=== PATIENT | female | born 1950 | race Caucasian/White ===

== ENCOUNTER 2017-12-25 08:43 | Outpatient (CLI) | payer MEDICARE | END 2017-12-25 08:44 | disposition home or self-care (01) | LOC: BICRAD 08:43 | PROVIDERS: ATTEND Internal Medicine Rheumatology | DX: M05.79 Rheumatoid arthritis with rheumatoid factor of multiple sites without organ or systems involvement (principal) ==

== ENCOUNTER 2018-02-22 18:08 | Inpatient (IN) | payer MEDICARE ==
[2018-02-22] MEDS ORDERED: Acetaminophen 500 MG TAB ONE (18:34)
[2018-02-22 18:49] LABS: Bilirubin Negative (Negative); Blood, Urine Moderate (Negative); Clarity Clear (Clear); Glucose, Urine (Dipstick) Negative (Negative); Leukocyte Negative (Negative); Nitrite Negative (Negative); Protein, Urine (Dipstick) Negative (Neg-Trace)
[2018-02-22 18:56] LABS: Bacteria/HPF Rare-Few HPF (None Seen); Squamous Epithelial 0-3 HPF (0-3); WBC/HPF 0-3 HPF (0-3)
[2018-02-22] MEDS ORDERED: Piperacillin/Tazobactam 4.5 GM VIAL ONE (19:02)
[2018-02-22] MEDS ORDERED: predniSONE 20 MG TAB ONE (19:02)
--- NOTE | 2018-02-22 19:04 | RAD ---
FRONTAL VIEW CHEST: 02/22/18 INDICATION: Cough and fever. FINDINGS: There is pleural and parenchymal density at the inferior left chest. There is elevation of the right hemidiaphragm with underlying air density likely related to bowel content. The cardiac silhouette is accentuated by portable technique. Mild vascular prominence is seen at the perihilar regions. IMPRESSION: Evidence to indicate pleural fluid with adjacent atelectasis and/or pneumonia at the inferior left ch est. Elevated right hemidiaphragm. Recommend continued followup to resolution. POS: [facility]
[2018-02-22 19:06] LABS: Band 4 % (5-11); Hemoglobin 12.3 g/dL (12.0-16.0); Lymphocytes 9 % (21-51); MDiff Complete? YES; Mean Corpuscular HGB CONC 36.4 g/dL (32.0-36.0); Mean Corpuscular Hemoglobin 33.1 pg (27.0-31.0); Mean Corpuscular Volume 91.1 fL (78.0-98.0); Mean Platelet Volume 6.6 fL (7.4-10.4); Monocytes 5 % (0-10); Neutrophil 82 % (42-75); PLT Morphology Comment Appears Adequate; Platelet Count 174 thou/uL (130-400); RBC Distribution Width 12.1 % (11.5-14.5); White Blood Cell (WBC) Count 9.5 thou/uL (4.8-10.8)
[2018-02-22 19:09] LABS: ALT (SGPT) 14 U/L (8-55); AST (SGOT) 13 U/L (5-34); Albumin 3.8 g/dL (3.4-4.8); Alkaline Phosphatase 41 U/L (40-150); Anion Gap 16 mmol/L (10-20); BUN (Urea Nitrogen) 14 mg/dL (9.8-20.1); Bilirubin, Total 1.2 mg/dL (0.2-1.2); Calc. Creatinine Clearance 0 mL/min (70-130); Calcium 9.5 mg/dL (7.8-10.44); Carbon Dioxide 25 mmol/L (23-31); Chloride 102 mmol/L (98-107); Estimated GFR-MDRD 63; Globulin 3.4 g/dL (2.4-3.5); Glucose 122 mg/dL (80-115); Potassium 3.6 mmol/L (3.5-5.1); Protein, Total 7.2 g/dL (6.0-8.3); Sodium 139 mmol/L (136-145)
[2018-02-22] MEDS ORDERED: Sodium Chloride 0.9% 1,000 ML IV SCH (22:00)
[2018-02-22 22:35] LABS: Lactic Acid 1.9 mmol/L (0.5-2.2)
[2018-02-22] MEDS ORDERED: Ondansetron PF 4 MG/2 ML Vial IVP PRN (23:12)
[2018-02-22] MEDS ORDERED: PROVENTIL INHALER 6.7 G (200 INHALATIONS) INH PRN (23:14)
[2018-02-22] MEDS ORDERED: traZODone HCl 50 MG TAB PO SCH (23:45)
[2018-02-22] MEDS ORDERED: VANCOMYCIN IVPB PRN (23:48)
[2018-02-23] MEDS: Piperacillin/Tazobactam 3.375 GM in Sodium Chloride 0.9% 100 ML IVPB SCH ×4 (00:03→17:02)
[2018-02-23] MEDS: Zolpidem Tartrate 5 MG TAB PO SCH ×3 (00:03→21:17)
[2018-02-23 00:32] VITALS: BMI 34.7
[2018-02-23 05:32] LABS: Anion Gap 15 mmol/L (10-20); BUN (Urea Nitrogen) 11 mg/dL (9.8-20.1); Calc. Creatinine Clearance 109 mL/min (70-130); Calcium 8.9 mg/dL (7.8-10.44); Carbon Dioxide 21 mmol/L (23-31); Chloride 109 mmol/L (98-107); Estimated GFR-MDRD 74; Glucose 150 mg/dL (80-115); Potassium 3.6 mmol/L (3.5-5.1); Sodium 141 mmol/L (136-145)
--- NOTE | 2018-02-23 07:28 | CT ---
CT CHEST NONCONTRAST CT THORACIC SPINE REFORMATTED IMAGING NONCONTRAST: Date: 02/22/18 INDICATION: Cough, fever, parapneumonic effusion. FINDINGS: There is mild left pleural fluid, some of which demonstrates a complex morphology. There is consolida tion of the left lung, notably within the left hilar region and insinuating along the bronchovascular bundle of the left lower lobe. There is no evidence of pneumothorax. No consolidation or significant effusion of the right hemithorax. There is mild subpleural irregularity on the right which favors at electasis. Regional lymph nodes are incompletely assessed by noncontrast imaging. Sagittal reconstructions CT thoracic spine imaging reveals multifocal height loss throughout the imag ed thoracic, as well as lumbar spine, with areas of mild to moderate severe height loss, with a sever e L1 compression, mild superior height loss of T12 with associated adjacent pedicle screws approximat ing the mildly compressed superior end plate. There is mild to moderate height loss of T9, moderate c entral and severe anterior height loss of T7, and mild superior end plate height loss of T6. When com paring to prior CT thorax imaging of 10/04/12, aside from the T6 and T7 abnormalities, the remaining areas, where comparable to prior exam, are new. There are intervening spinal x-ray series which revea l the fixation of L1 fracture. IMPRESSION: 1. Complex morphology of mild left pleural fluid, which could therefore reflect empyema versus lobul ated pleural fluid. This is limited without the presence of IV contrast. There is abnormal left hilar opacity with insinuation along bronchovascular bundle, notably at left lower lobe. An overall mild v olume loss of the left hemithorax is noted. This could relate to atypical pneumonia versus centrally located mass with postobstructive atelectasis. Continued imaging follow-up is warranted. 2. Multilevel compression deformities throughout the imaged thoracolumbar spine as above. POS: [facility]
[2018-02-23] MEDS ORDERED: predniSONE 5 MG TAB PO SCH (08:00)
[2018-02-23] MEDS ORDERED: Sodium Chloride 0.9% 10 ML ONE (08:40)
[2018-02-23] MEDS ORDERED: CARBOXYMETHYLCELLULOSE SODIUM EA EYE SCH (09:00)
[2018-02-23] MEDS ORDERED: Non-Formulary Item 1 EACH (Dexlansoprazole [Dexilant] 60 MG) PO SCH (09:00)
[2018-02-23] MEDS ORDERED: Prevnar 13-Val Conj/PF 0.5 ML SYRINGE IM ONE (09:00)
[2018-02-23] MEDS ORDERED: (Formoterol Fumarate [Perforomist] 20 MCG) EA NARE SCH (09:00)
[2018-02-23] MEDS ORDERED: [UNRECOGNIZED DRUG - OTHER] EA EYE SCH (09:00)
[2018-02-23] MEDS: Verapamil SR 120 MG TAB PO SCH (09:19)
[2018-02-23] MEDS: Calcium Carbonate + Vit D 1 TAB PO SCH ×2 (09:19→21:18)
[2018-02-23] MEDS: Folic Acid 1 MG TAB PO SCH (09:19)
[2018-02-23] MEDS: Multivitamin W/ Minerals 1 TAB PO SCH (09:19)
[2018-02-23] MEDS: Pilocarpine 5 MG TAB PO SCH ×2 (09:20→23:08)
[2018-02-23] MEDS: Enoxaparin Sodium 40 MG/0.4 ML SYRINGE SC SCH (09:21)
[2018-02-23] MEDS: Acetaminophen 325 MG TAB PO PRN ×2 (09:49→21:18)
[2018-02-23] MEDS: Vancomycin HCl 1.5 GM in Sodium Chloride 0.9% 250 ML 300 ML IVPB SCH (09:50)
[2018-02-23] MEDS: cycloSPORINE 0.05% Ophthalmic Droperette EA EYE SCH ×2 (10:06→23:08)
--- NOTE | 2018-02-23 10:20 | PDOC.PN ---
- Subjective Encounter Start Date: 02/23/18 Encounter Start Time: 10:18 Patient seen and examined. No new complaints. No overnight events. Pt is feeling better. pleuritic pain and fever better. No N/V. c/o h/o thrush with abx and wants to take probiotic. - Objective Resuscitation Status: Resuscitation Status FULL:Full Resuscitation MAR Reviewed: Yes Vital Signs & Weight: Vital Signs (12 hours) Temp Pulse Resp BP Pulse Ox 02/23/18 09:54 97.7 F 80 16 94 L 02/23/18 07:18 97.7 F 80 16 144/72 H 94 L 02/23/18 04:00 97.6 F 80 16 121/73 92 L 02/23/18 01:46 98.7 F 79 16 93 L 02/23/18 00:00 98.5 F 77 16 109/72 93 L I&O: 02/22/18 02/23/18 02/24/18 06:59 06:59 06:59 Intake Total 1580 Balance 1580 Result Diagrams: 02/22/18 18:45 02/23/18 04:44 Phys Exam - Physical Examination Constitutional: NAD HEENT: sclera anicteric Neck: supple Respiratory: no wheezing, no rales Cardiovascular: RRR Gastrointestinal: soft Musculoskeletal: no edema Neurological: non-focal, moves all 4 limbs Psychiatric: normal affect, A&O x 3 Skin: no rash Dx/Plan (1) Pneumonia Code(s): J18.9 - PNEUMONIA, UNSPECIFIED ORGANISM Status: Acute (2) Pleural effusion Code(s): J90 - PLEURAL EFFUSION, NOT ELSEWHERE CLASSIFIED Status: Acute (3) HTN (hypertension) Code(s): I10 - ESSENTIAL (PRIMARY) HYPERTENSION Status: Chronic (4) Asthma Code(s): J45.909 - UNSPECIFIED ASTHMA, UNCOMPLICATED Status: Chronic (5) Rheumatoid arthritis Code(s): M06.9 - RHEUMATOID ARTHRITIS, UNSPECIFIED Status: Chronic (6) Sjogrens syndrome Code(s): M35.00 - SICCA SYNDROME, UNSPECIFIED Status: Chronic - Plan cont current plan of care, plan discussed w/ family, continue antibiotics, PT/OT * . continue vanc and zosyn complicated pna with pl effusion h/o RA and sjogrens on immunosuppressives. will consult pulmonology for assistance. will add probiotic. AM labs.
[2018-02-23] MEDS ORDERED: Saccharomyces boulardii 250 MG CAP PO SCH (10:45)
[2018-02-23] MEDS: Cholecalciferol (Vitamin D3) 400 UNITS TAB PO SCH (11:42)
[2018-02-23] MEDS: CANDESARTAN CILEXETIL 8 MG PO SCH (14:00)
[2018-02-23] MEDS: NALTREXONE HCL PO SCH ×2 (14:00→22:04)
[2018-02-23] MEDS: BUPROPION HCL PO SCH ×2 (14:00→22:04)
--- NOTE | 2018-02-23 14:45 | HP ---
CODE STATUS: FULL CODE. PRIMARY CARE DOCTOR: Dr. Anthony Cantu. TIME OF EVALUATION: 11:05 p.m. CHIEF COMPLAINT: Fever. HISTORY OF PRESENT ILLNESS: This is 67 years old female patient with past medical history of RA, the patient is on immunosuppression therapy, came to the hospital after having temperature of 102.9, associated with cough and chest pain , the patient had generalized body aches since Sunday, with no clear triggers, no alleviating factors. Symptoms are reported as moderate to severe, gradually worsened. REVIEW OF SYSTEMS: Constitutional: No fever or chills, generalized weakness. Respiratory: Cough, scant sputum production, shortness of breath. Cardiovascular: No chest pain, palpitation, or shortness of breath. Gastrointestinal: No nausea or vomiting, diarrhea or abdominal pain. CREDIT REPRESENTATIVE: No dizziness, headache, or feeling lightheaded. Genitourinary: No burning on urination. Extremities: No leg swelling. All other systems were reviewed and negative except for the findings mentioned above. PAST MEDICAL HISTORY: RA, macular degeneration, asthma, osteopenia, PNA, hypertension. PAST SURGICAL HISTORY: Laminectomy x2 with spinal fusion T13-L3, cholecystectomy, hysterectomy, carpal tunnel surgery. FAMILY HISTORY: Father has heart problems. Mother has COPD. ALLERGIES: GABAPENTIN, LEVOFLOXACIN, PREGABALIN. REPORTED MEDICATIONS: Calcium, Centrum, folic acid, methotrexate, prednisone, trazodone, pilocarpine, Remicade, Dexilant, Restasis, ProAmatine, Estrace, cholecalciferol, vitamin D3, Alvesco, Singulair, Flonase, Furamist, Imuran, Lunesta, Myrbetriq, Contrave. PHYSICAL EXAMINATION: VITAL SIGNS: On presentation, blood pressure 170/77, with heart rate 116, respiratory rate was 18, temperature 100.6, oxygen saturation 91 on room air. GENERAL APPEARANCE: Patient is alert, oriented, no acute distress. HEENT: Eyes, normal conjunctivae. Moist oral mucosa. Anicteric. NECK: No JVD. RESPIRATORY: Bilateral air entry. No rales or wheezing. Patient has decreased respiratory sounds in the left lower base. CARDIOVASCULAR: Normal rate and regular rhythm. No murmurs, no gallop. No edema. ABDOMEN: Soft, normal bowel sounds. MUSCULOSKELETAL: Baseline range of motion and strength. No tenderness. SKIN: Warm and intact. No pallor, no rash, no redness. NEUROLOGIC: Baseline sensory. No evidence of any new focal weakness. Baseline speech. Cranial nerve seems to be intact. PSYCHIATRIC: Good mood. No anxiety, oriented, no optimal judgment. LABORATORY DATA AND IMAGING STUDIES: The EKG was reviewed, the patient had sinus tachycardia at the rate of 116, RBBB. Chest x-ray, the patient has evidence to indicate pleural fluid with adjacent atelectasis or pneumonia on the inferior left chest, elevated right hemidiaphragm. Recommend follow up for resolution. The labs were reviewed. The patient has white count 9.5, hemoglobin 12.3, MCV 91, platelet count 174. Sodium 139, potassium 3.6, chloride 102, carbon dioxide 25, anion gap 16, BUN 14, creatinine 0.8. GFR 63, glucose 122. Lactic acid 2.2, the second one 1.9. LFTs were normal. UA was done and was normal. The CAT scan has not reported yet, has been reviewed by myself. The patient has the left-sided pneumonia and pleural effusion, parapneumonic effusion; however, official report from radiology is not back yet. ASSESSMENT AND PLAN: The patient was placed in the hospital and following medical problem: 1. Left lower lobe pneumonia and the patient is immunosuppressed due to rheumatoid arthritis medications, we will place the patient on broad spectrum antibiotics, send cultures, will adjust treatment as per sensitivity. 2. Possible open lesion, left-sided pleural effusion, will await for official report from CT, may need thoracic surgery or Pulmonary to assist with this case , in case therapeutic/diagnostic tap versus recommendations needed. Patient covered with broad spectrum antibiotics. 3. History of rheumatoid arthritis. The patient is immunosuppressed and has been held for now due to severe infection. This will need to be reconciled once the patient out of risk from infection. 4. Uncontrolled hypertension, reconcile home medications, will not treat aggressively due to risk of sepsis. 5. Deep venous thrombosis prophylaxis. 6. History of asthma, the patient seems to be stable, we will monitor, we will treat accordingly. JAIDEND
[2018-02-23] MEDS: Montelukast Sodium 10 mg Tablet PO SCH (21:17)
[2018-02-23] MEDS: traZODone HCl 50 MG TAB PO SCH (21:17)
[2018-02-23] MEDS ORDERED: Albuterol Sulfate 2.5 mg/3 ml Neb NEB PRN (21:50)
[2018-02-23] MEDS ORDERED: Diabetic Tussin 200 MG/10 ML UDCUP PO PRN (21:51)
--- NOTE | 2018-02-23 21:56 | CON ---
DATE OF CONSULTATION: 02/23/2018 HISTORY OF PRESENT ILLNESS: Charisse Grijalva is a 67-year-old female, who started having a generalized sense of not being well over the weekend, then Sunday she started developing temperature spikes. , she developed severe left-sided chest discomfort, aggravated by coughing or taking a deep breath. She subsequently presented to the hospital and was admitted. She has rheumatoid arthritis. PAST MEDICAL HISTORY: Remarkable for rheumatoid arthritis, macular degeneration , asthma, osteopenia, hypertension, laminectomy, spinal fusion, cholecystectomy , hysterectomy, carpal tunnel surgery. SOCIAL HISTORY: She is a nonsmoker, nondrinker. No drug use. FAMILY HISTORY: Positive for vascular disease and COPD. MEDICATIONS: Prior to admission, she was on methotrexate 5 mg, prednisone, trazodone, pilocarpine, Remicade, Dexilant, Restasis, Estrace, vitamin D, Alvesco, Singulair, Flonase, Veramyst, Imuran, Lunesta, Myrbetriq, and Contrave. REVIEW OF SYSTEMS: Ten point system review completed, otherwise negative. States she feels much better than when she was admitted. PHYSICAL EXAMINATION GENERAL: 67-year-old female with rheumatoid arthritis VITAL SIGNS: She has been afebrile since admission, blood pressure 150/78, respiratory rate is 16, heart rate is 79, oximetry is 95 on room air. HEENT: Pupils are equal. Sclerae is anicteric. NECK: Supple, no lymphadenopathy. LUNGS: Remarkable for decreased breath sounds at her left base. HEART: Regular rhythm, no S3. ABDOMEN: Soft and nontender. EXTREMITIES: No clubbing, cyanosis, or edema. She did not really have significant rheumatoid deformities. IMAGING: Chest radiograph and chest CT have been reviewed. They show bilateral effusions. Chest CT suggests that some of this fluid might be loculated. IMPRESSION AND PLAN: Pleurisy with pleural effusion. This could be infectious, could be sterile parapneumonic or could be related to rheumatoid arthritis. I do not see anything on her CT suggestive of pericardial effusion or pericarditis. I do not see any alveolar infiltrates suggestive of a clearcut pneumonia. Recommend bilateral decubitus views tomorrow to see if she has any significant free flowing fluid. The effusion is relatively small, so I am not sure if she would need any type of intervention such as a decortication, especially given her dramatic clinical improvement. I would continue antibiotics for now. This is a 50-minute consult greater than 50% of the time was spent on the unit coordinating care. CALVIN
[2018-02-24] MEDS: Piperacillin/Tazobactam 3.375 GM in Sodium Chloride 0.9% 100 ML IVPB SCH ×5 (00:13→22:46)
[2018-02-24 05:24] LABS: #Eosinphils 0.1 thou/uL (0.0-0.7); #Lymphocytes 1.8 thou/uL (1.20-3.40); #Monocytes 0.6 thou/uL (0.11-0.59); #Neutrophils 5.4 thou/uL (1.40-6.50); %Basophils 0.3 % (0.0-1.0); %Eosinophils 1.4 % (0.0-10.0); %Lymphocytes 22.9 % (21.0-51.0); %Monocytes 7.7 % (0.0-10.0); %Neutrophils 67.6 % (42.0-75.0); Hemoglobin 10.4 g/dL (12.0-16.0); Mean Corpuscular Hemoglobin 34.3 pg (27.0-31.0); Mean Platelet Volume 7.4 fL (7.4-10.4); Platelet Count 175 thou/uL (130-400); RBC Distribution Width 13.7 % (11.5-14.5); Red Blood Cell (RBC) Count 3.05 mill/uL (4.20-5.40)
[2018-02-24 05:43] LABS: Anion Gap 11 mmol/L (10-20); BUN (Urea Nitrogen) 13 mg/dL (9.8-20.1); Calc. Creatinine Clearance 98 mL/min (70-130); Calcium 8.4 mg/dL (7.8-10.44); Carbon Dioxide 25 mmol/L (23-31); Chloride 111 mmol/L (98-107); Estimated GFR-MDRD 65; Glucose 89 mg/dL (80-115); Potassium 3.6 mmol/L (3.5-5.1); Sodium 143 mmol/L (136-145)
[2018-02-24] MEDS: Enoxaparin Sodium 40 MG/0.4 ML SYRINGE SC SCH (08:47)
[2018-02-24] MEDS: Verapamil SR 120 MG TAB PO SCH (08:48)
[2018-02-24] MEDS: Calcium Carbonate + Vit D 1 TAB PO SCH ×2 (08:48→20:34)
[2018-02-24] MEDS: Saccharomyces boulardii 250 MG CAP PO SCH (08:48)
[2018-02-24] MEDS: Folic Acid 1 MG TAB PO SCH (08:48)
[2018-02-24] MEDS: Multivitamin W/ Minerals 1 TAB PO SCH (08:48)
[2018-02-24] MEDS: BUPROPION HCL PO SCH ×2 (08:49→20:34)
[2018-02-24] MEDS: CANDESARTAN CILEXETIL 8 MG PO SCH (08:49)
[2018-02-24] MEDS: NALTREXONE HCL PO SCH ×2 (08:49→20:34)
[2018-02-24] MEDS: cycloSPORINE 0.05% Ophthalmic Droperette EA EYE SCH ×2 (08:58→20:39)
[2018-02-24] MEDS: Pilocarpine 5 MG TAB PO SCH ×2 (08:59→21:31)
[2018-02-24] MEDS: Cholecalciferol (Vitamin D3) 400 UNITS TAB PO SCH (09:02)
--- NOTE | 2018-02-24 10:24 | PDOC.PN ---
- Subjective Encounter Start Date: 02/24/18 Encounter Start Time: 10:23 Feeling better than when she came in. Less pleuritic type pain. Breathing better. - Objective Resuscitation Status: Resuscitation Status FULL:Full Resuscitation Vital Signs & Weight: Vital Signs (12 hours) Temp Pulse Resp BP Pulse Ox 02/24/18 07:16 97.6 F 75 18 137/77 95 02/24/18 04:00 97.9 F 77 16 140/74 93 L 02/24/18 00:00 98 F 78 18 103/59 L 94 L 02/23/18 22:37 80 18 92 L I&O: 02/23/18 02/24/18 02/25/18 06:59 06:59 06:59 Intake Total 1580 1900 Balance 1580 1900 Result Diagrams: 02/24/18 05:05 02/24/18 05:05 Phys Exam - Physical Examination Constitutional: NAD Neck: no JVD, supple Respiratory: no wheezing Mild crackles right base. Cardiovascular: RRR, no significant murmur, no rub Gastrointestinal: soft, non-tender, no distention Musculoskeletal: no edema Dx/Plan (1) Pleural effusion Code(s): J90 - PLEURAL EFFUSION, NOT ELSEWHERE CLASSIFIED Status: Acute Comment: Appears to asphalt tile floor layer on decub films. Pulmonology will likely tap. May be parapneumonic or pleuisy. Tap will help with diagnosis. (2) Pneumonia Code(s): J18.9 - PNEUMONIA, UNSPECIFIED ORGANISM Status: Acute Comment: Vanc and Zosyn. Does not appear to have significant infiltrate on CT. Has more left sided effusion and small right effusion with some right basilar atelectasis. She is afebrile and pain resolving. Still feels a little tight in the chest. (3) Asthma Code(s): J45.909 - UNSPECIFIED ASTHMA, UNCOMPLICATED Status: Chronic Comment : No evidence of wheezing today. (4) HTN (hypertension) Code(s): I10 - ESSENTIAL (PRIMARY) HYPERTENSION Status: Chronic (5) Rheumatoid arthritis Code(s): M06.9 - RHEUMATOID ARTHRITIS, UNSPECIFIED Status: Chronic Comment: Methotrexate and azothioprine held. Also on Remicade infusions. (6) Sjogrens syndrome Code(s): M35.00 - SICCA SYNDROME, UNSPECIFIED Status: Chronic - Plan * above * On Lovenox and Florastor.
[2018-02-24] MEDS: Vancomycin HCl 1.5 GM in Sodium Chloride 0.9% 250 ML 300 ML IVPB SCH (10:55)
--- NOTE | 2018-02-24 11:09 | RAD ---
CHEST LEFT LATERAL DECUBITUS ONLY: Date: 02/24/18 HISTORY: Effusion. COMPARISON: CT of 02/22/18. FINDINGS: There is a layering left effusion, moderate in size. IMPRESSION: Layering left effusion. POS: [facility]
--- NOTE | 2018-02-24 11:10 | RAD ---
RIGHT LATERAL DECUBITUS: Date: 02/24/18 HISTORY: Pleural effusion. COMPARISON: CT dated 02/22/18. FINDINGS: No significant right side pleural effusion is appreciated. IMPRESSION: No significant right side pleural effusion. POS: [facility]
[2018-02-24 13:50] LABS: Fluid, pH - Pleural Fld 7.42
[2018-02-24 14:05] LABS: Pleural Fluid, Protein 3.2 g/dL
[2018-02-24] MEDS: Acetaminophen 325 MG TAB PO PRN (14:27)
[2018-02-24 14:38] LABS: BF Color Yellow; Body Fluid Source PLEURAL FLUID; Clarity Hazy (Clear); RBC Background Count 0.006; Tube # 1
[2018-02-24 14:39] LABS: RBC Count-Automated 13000 /cumm; WBC/NonHematic-Auto 7050 /cumm
[2018-02-24 15:08] LABS: BF Segmented Neutrophils 51 %; Cell Count Non Hematic 35 %; Lymphocytes 14 %
--- NOTE | 2018-02-24 16:51 | PRG ---
DATE OF SERVICE: 02/24/2018 SUBJECTIVE: I doubt this is rheumatoid effusion. Prednisone had initially been entered just 5 mg every other day, she tells me ____ this is a mild str ess and I am sure her adrenal axis is suppressed. Her Imuran will be restarted in the morning as rashel solomon
[2018-02-24] MEDS ORDERED: predniSONE 20 MG TAB PO SCH (19:00)
[2018-02-24] MEDS: Montelukast Sodium 10 mg Tablet PO SCH (20:32)
[2018-02-24] MEDS: Zolpidem Tartrate 5 MG TAB PO SCH ×2 (21:33→22:45)
[2018-02-24] MEDS: traZODone HCl 50 MG TAB PO SCH (22:44)
--- NOTE | 2018-02-24 22:52 | OP ---
DATE OF SERVICE: 02/24/2018 SUBJECTIVE: Ms. Grijalva did well overnight. OBJECTIVE: VITAL SIGNS: She is afebrile, heart rate 80, respiratory rates in the teens. Oximetry is 95 on room air, blood pressure 147/77. Exam was unchanged. Decubitus views showed layering fluid on the left. I recommended a thoracentesis because of her immune suppressive therapy. Her left posterior hemithorax was prepped with chlorhexidine. A 22-gauge needle was used to localize pleural fluid after 10 mL of 1% lidocaine was instilled into the skin in the pleural space. Approximately 10 mL of yellow pleural fluid was evacuated it felt sick. Fluid was sent for pH was 7.42. Protein was 3.2, LDH 972. Glucose was 58. There are 13,000 red cells, 7000 white cells, 51% segs. Gram stain of pleural fluid has been done which shows no organisms. IMPRESSION AND PLAN: Parapneumonic effusion that likely will be sterile. She may be a candidate to go home in the morning. There is no indication of a pneumothorax, no air was aspirated, so no chest radiograph was done. There is no indication for chest tube placement at this point. CALVIN
[2018-02-25] MEDS: Piperacillin/Tazobactam 3.375 GM in Sodium Chloride 0.9% 100 ML IVPB SCH ×2 (05:47→13:47)
[2018-02-25] MEDS ORDERED: predniSONE 20 MG TAB PO SCH (08:00)
[2018-02-25] MEDS ORDERED: predniSONE 5 MG TAB PO SCH (08:00)
[2018-02-25] MEDS: Folic Acid 1 MG TAB PO SCH (08:41)
[2018-02-25] MEDS: Verapamil SR 120 MG TAB PO SCH (08:41)
[2018-02-25] MEDS: Multivitamin W/ Minerals 1 TAB PO SCH (08:42)
[2018-02-25] MEDS: Saccharomyces boulardii 250 MG CAP PO SCH (08:42)
[2018-02-25] MEDS: Calcium Carbonate + Vit D 1 TAB PO SCH (08:42)
[2018-02-25] MEDS: Pilocarpine 5 MG TAB PO SCH (08:42)
[2018-02-25] MEDS: Enoxaparin Sodium 40 MG/0.4 ML SYRINGE SC SCH (08:43)
[2018-02-25] MEDS: NALTREXONE HCL PO SCH (08:43)
[2018-02-25] MEDS: BUPROPION HCL PO SCH (08:43)
[2018-02-25] MEDS: CANDESARTAN CILEXETIL 8 MG PO SCH (08:43)
[2018-02-25] MEDS ORDERED: azaTHIOprine 50 MG TAB PO SCH (09:00)
[2018-02-25 09:28] LABS: Vancomycin, Trough 9.3 ug/mL
[2018-02-25] MEDS: Cholecalciferol (Vitamin D3) 400 UNITS TAB PO SCH (10:39)
[2018-02-25] MEDS: cycloSPORINE 0.05% Ophthalmic Droperette EA EYE SCH (10:39)
[2018-02-25] MEDS: Vancomycin HCl 1.5 GM in Sodium Chloride 0.9% 250 ML 300 ML IVPB SCH (10:40)
[2018-02-25 12:38] VITALS: BP 148/83; TEMP 97.8
--- NOTE | 2018-02-25 13:12 | PRG ---
DATE OF SERVICE: 02/25/2018 Ms. Grijalva has no complaints, she says she feels great. Her 24-hour cultures of her pleural fluid are negative. I believe she is stable to go home. She will go home with 7-10 days of antibiotics. I have asked he r to take 5 mg prednisone twice a day. She will get back on her other arthritis drugs. We will do a chest radiograph in a month. I discussed the above with the Hospitalist as well.
[2018-02-25] MEDS ORDERED: Vancomycin HCl 1 GM in Premix Bag 1 BAG IVPB SCH (22:00)
--- NOTE | 2018-02-26 13:55 | DIS ---
DATE OF ADMISSION: 02/22/2018 DATE OF DISCHARGE: 02/25/2018 DISCHARGE DIAGNOSES: 1. Left lower lobe pneumonia. 2. Left pleural effusion. 3. Rheumatoid arthritis. 4. History of hypertension. 5. History of asthma. HISTORY: This patient is a 67-year-old female with a history of rheumatoid arthritis, being followed by Dr. Dc Hudsno in [place]. The patient presented to the hospital with a febrile illne ss with a temperature up to 102.9 associated with some pleuritic type chest pain, generalized myalgia s and a cough. The patient was on methotrexate, prednisone and Remicade for her rheumatoid arthritis and is felt to be immunosuppressed. Her initial workup was notable for elevated blood pressure and tachycardia, temperature of 100.6, decreased breath sounds at the left base. Chest x-ray indicated l eft pleural effusion, some atelectasis or pneumonia. White count was 9.5, BUN 14, creatinine 0.8. L actic acid was 2.2 with a repeat is 1.9. A CT scan of the chest indicated complex morphology of mid left pleural fluid concerning for possible empyema or loculated effusion, concern for possible atypic al pneumonia or some obstructive atelectasis with multilevel compression deformities throughout. The thoracolumbar spine was visualized. HOSPITAL COURSE: The patient was admitted with left-sided pneumonia with pleural effusion, fever, co ugh and left-sided chest pain. She was started on broad-spectrum antibiotics and Pulmonary was consu lted. Pulmonology felt that the patient would benefit from decubitus films, which were obtained and confirmed layering of the pleural fluid. Subsequently, Dr. Alanis performed a thoracentesis. This wa s relatively a small amount of fluid obtained for diagnostic purposes. Initial Gram stain was done, which revealed no organisms. PH was 7.42, protein 3.2, LDH 972. Glucose 58, 13,000 red cells, 7000 white cells and 51% segs. Given that the patient's symptoms had resolved, she was no longer febrile and she was breathing comfortably, Pulmonology felt that the patient was stable for discharge to home with negative cultures at 24 hours. PHYSICAL EXAMINATION: VITAL SIGNS: On the day of discharge, temperature was 97.8, pulse 72, respirations 12, O2 sat 96% on room air, BP was 148/83. GENERAL: She was awake, alert, oriented, pleasant and cooperative. HEART: Regular rate and rhythm. LUNGS: Clear bilaterally. ABDOMEN: Soft, nontender, nondistended. EXTREMITIES: Warm and dry. DISPOSITION: The patient will be discharged to home. DISCHARGE INSTRUCTIONS: She is to have a regular diet and her activity level is as tolerated. DISCHARGE MEDICATIONS: She will be on azithromycin 500 mg daily, cefuroxime 250 mg p.o. b.i.d. She will continue with Imuran 100 mg daily, methotrexate 2.5 mg 3 times per week, folic acid 1 mg per day , prednisone 5 mg daily, Remicade infusions, multivitamin 1 daily, trazodone 100 mg at bedtime, Dora rin vaginal cream, Restasis eyedrops, Dexilant 60 mg daily, Ventolin inhaler p.r.n., verapamil 120 mg daily, Atacand 8 mg daily, vitamin D3 2000 units daily, calcium with vitamin D 1 b.i.d., Singulair 1 0 mg daily, Refresh eyedrops b.i.d., pilocarpine 15 mg p.o. b.i.d., 3 tablets t.i.d., Ambien 10 mg at bedtime p.r.n., Alvesco 1 puff b.i.d., Perforomist 20 mcg per nostril b.i.d., Myrbetriq ER 25 mg p.o. daily, hydrochlorothiazide 12.5 mg p.o. daily. FOLLOWUP: She is to follow up with her primary care provider, Dr. Cantu as well as Dr. Alanis in 3- 4 weeks. She is to have a follow up x-ray done at that time before her appointment. She is also to follow up with Dr. Dc Hudson to follow up on her rheumatoid. The patient should return to the Emergency Department should she have any problems prior to that time.
[2018-03-01] MEDS ORDERED: Estrogens, Conjugated 30 GM TUBE VAG SCH (09:00)
--- NOTE | 2018-03-09 13:14 | EKG ---
Test Reason : Blood Pressure : / mmHG Vent. Rate : 116 BPM Atrial Rate : 116 BPM P-R Int : 128 ms QRS Dur : 114 ms QT Int : 354 ms P-R-T Axes : 048 -39 038 degrees QTc Int : 492 ms Poor data quality, interpretation may be adversely affected Sinus tachycardia Left axis deviation Incomplete right bundle branch block Abnormal ECG Confirmed by SRINIVASAN FELDER, BETH ([id number]), development editor SHEEBA GONSALEZ ([id number]) on 03/09/2018 1:13:45 PM Referred By: Confirmed By:BETH MATTSON MD
== END 2018-02-25 14:25 | disposition home or self-care (01) | DRG 194 ==
LOC: SCSER 18:08 → SJJU 19:18
PROVIDERS: ADMIT Family Medicine; ATTEND Family Medicine
PROC: 0W9B3ZX Drainage of Left Pleural Cavity, Percutaneous Approach, Diagnostic (ICD-10-PCS; principal; 2018-02-24)
DX: J18.9 Pneumonia, unspecified organism (principal); J90 Pleural effusion, not elsewhere classified; M06.9 Rheumatoid arthritis, unspecified; I10 Essential (primary) hypertension; M35.00 Sjogren syndrome, unspecified; M85.80 Other specified disorders of bone density and structure, unspecified site; J45.909 Unspecified asthma, uncomplicated; Z88.8 Allergy status to other drugs, medicaments and biological substances; Z88.1 Allergy status to other antibiotic agents
CPT/HCPCS: 32554; 36415; 71045; 71250; 80048; 80053; 80202; 81003; 81015; 82945; 83605; 83615; 83986; 84157; 85025; 85060; 87040; 87070; 87086; 87205; 87804; 89051; 90471; 90670; 93005; 94640; 96365; 96367; G0009; J1650; J2543; J3370; J7050; J7500; J7506; J7611

== ENCOUNTER 2018-04-24 08:00 | Outpatient (CLI) | payer MEDICARE ==
--- NOTE | 2018-04-24 09:47 | RAD ---
CHEST 2 VIEWS: Date: 04/24/18 COMPARISON: Chest CT dated 02/22/18. FINDINGS: Lungs without focal air space consolidation, pneumothorax, or effusion. There is some scarring in the lingula and left lower lobe. Cardiac silhouette and mediastinal contours within normal limits. Old right-sided rib fractures. Multiple mid thoracic spine compression deformities are similar to the CT from 02/22/18. Posterior sp inal fusion hardware traversing a burst lumbar spine fracture. IMPRESSION: Chronic changes. No acute intrathoracic abnormality. POS: [facility]
== END 2018-04-24 08:01 | disposition home or self-care (01) ==
LOC: RAD 08:00
PROVIDERS: ATTEND Internal Medicine Critical Care Medicine
DX: R06.00 Dyspnea, unspecified (principal)
CPT/HCPCS: 71046

== ENCOUNTER 2018-05-30 15:03 | Outpatient (CLI) | payer MEDICARE ==
--- NOTE | 2018-05-30 14:25 | RAD ---
CHEST PA AND LATERAL: History: 68-year-old female with history of dyspnea. Comparison: 04-24-18 FINDINGS: Pedicle screws and Dunn rods stabilize the lumbar spine, incompletely seen on this study. Heart size is within normal limits. There is some scattered linear and interstitial increased markings christopher aterally, particularly in the lower lung zones. There is are some healed rib fractures. Stable verteb ral body collapse of the mid thoracic spine. IMPRESSION: Stable scattered chronic lung changes. Atherosclerosis of the aorta. Other findings stable as above. POS: [facility]
== END 2018-05-30 15:04 ==
LOC: RAD 15:03
PROVIDERS: ATTEND Internal Medicine Critical Care Medicine
DX: R06.00 Dyspnea, unspecified (principal); I70.0 Atherosclerosis of aorta
CPT/HCPCS: 71046

== ENCOUNTER 2018-06-19 09:32 | Outpatient (CLI) | payer MEDICARE ==
--- NOTE | 2018-06-19 10:57 | RAD ---
CHEST TWO VIEWS: History: Dyspnea. Comparison: 05-30-18 FINDINGS: Heart size is within normal limits. There are arthrosclerotic changes of the aorta. Lungs are clear o f any infiltrative process. Post-operative changes of the thoracic spine are seen. IMPRESSION: Changes along the midthoracic vertebral bodies is stable. Stable exam. POS: [facility]
== END 2018-06-19 09:33 | disposition home or self-care (01) ==
LOC: RAD 09:32
PROVIDERS: ATTEND Internal Medicine Critical Care Medicine
DX: R06.00 Dyspnea, unspecified (principal)
CPT/HCPCS: 71046

== ENCOUNTER 2018-07-01 19:44 | Inpatient (IN) | payer MEDICARE ==
[2018-07-01] MEDS ORDERED: Ibuprofen 600 MG TAB ONE (19:57)
[2018-07-01] MEDS ORDERED: Sodium Chloride 0.9% 100 ML ONE (20:29)
[2018-07-01] MEDS ORDERED: cefTRIAXone\\ROCEPHIN 2 GM VIAL ONE (20:29)
[2018-07-01] MEDS ORDERED: methylPREDNISolone Sod Succ/PF 125 MG/2 ML VIAL ONE (20:29)
[2018-07-01] MEDS ORDERED: Water For Inject, Bacteriostat 30 ML ONE (20:29)
[2018-07-01 20:41] LABS: #Lymphocytes 0.4 thou/uL (1.20-3.40); #Monocytes 0.8 thou/uL (0.11-0.59); #Neutrophils 10.8 thou/uL (1.40-6.50); %Basophils 0.4 % (0.0-1.0); %Monocytes 6.6 % (0.0-10.0); %Neutrophils 90.1 % (42.0-75.0); Hemoglobin 12.5 g/dL (12.0-16.0); Mean Corpuscular HGB CONC 35.5 g/dL (32.0-36.0); Mean Corpuscular Hemoglobin 33.6 pg (27.0-31.0); Mean Corpuscular Volume 94.5 fL (78.0-98.0); Mean Platelet Volume 7.6 fL (7.4-10.4); Platelet Count 143 thou/uL (130-400); RBC Distribution Width 13.1 % (11.5-14.5); Red Blood Cell (RBC) Count 3.73 mill/uL (4.20-5.40)
[2018-07-01 20:54] LABS: ALT (SGPT) 24 U/L (8-55); AST (SGOT) 24 U/L (5-34); Albumin 3.9 g/dL (3.4-4.8); Alkaline Phosphatase 54 U/L (40-150); Anion Gap 18 mmol/L (10-20); BUN (Urea Nitrogen) 20 mg/dL (9.8-20.1); Bilirubin, Total 0.7 mg/dL (0.2-1.2); Calc. Creatinine Clearance 0 mL/min (70-130); Carbon Dioxide 23 mmol/L (23-31); Chloride 103 mmol/L (98-107); Estimated GFR-MDRD 58; Globulin 3.1 g/dL (2.4-3.5); Glucose 107 mg/dL (80-115); Lipase 12 U/L (8-78); Sodium 140 mmol/L (136-145)
--- NOTE | 2018-07-01 21:05 | RAD ---
CHEST TWO VIEWS: HISTORY: A 68-year-old female with a history of dyspnea. FINDINGS: Heart size is within normal limits. Increased linear and interstitial markings are noted bilaterally . Pedicle screws and rods stabilize the thoracolumbar junction with a collapsed vertebral body, as w ell as a collapsed vertebral body in the upper mid thoracic spine, stable. There is a small area of parenchymal density in the left upper lobe. This could possibly represent a small patch of pneumonia or could conceivably represent a developing mass. There are some healed right rib fractures. Short -term followup in several weeks to a month is suggested. If this density persists at that time, a f ollow-up CT scan might be considered. IMPRESSION: 1. Chronic lung changes bilaterally. 2. Atherosclerosis of the aorta with ectasia. 3. Stable collapsed vertebral bodies. 4. Questionable density in the left upper lobe. Consider follow-up study in several weeks/one month for further assessment. POS: [facility]
[2018-07-01] MEDS ORDERED: Azithromycin 500 MG VIAL ONE (21:07)
[2018-07-01 21:12] LABS: CKMB 3.3 ng/mL (0-6.6)
[2018-07-01 21:16] LABS: Bilirubin Negative (Negative); Blood, Urine Moderate (Negative); Clarity Cloudy (Clear); Glucose, Urine (Dipstick) Negative (Negative); Leukocyte Negative (Negative); Nitrite Negative (Negative); Protein, Urine (Dipstick) Negative (Neg-Trace); Specific Gravity, Urine 1.025 (1.005-1.030); Urobilinogen 0.2 mg/dL (0.2-1.0); pH, Urine 6.5 (5.0-9.0)
[2018-07-01] MEDS ORDERED: Ondansetron PF 4 MG/2 ML Vial ONE (21:19)
[2018-07-01 21:20] LABS: Bacteria/HPF 1+ HPF (None Seen)
[2018-07-01] MEDS ORDERED: Ondansetron ODT 4 MG TAB SL PRN (23:06)
[2018-07-01] MEDS ORDERED: Acetaminophen 325 MG TAB PO PRN (23:06)
[2018-07-01] MEDS ORDERED: Ondansetron PF 4 MG/2 ML Vial IVP PRN (23:06)
[2018-07-01 23:40] LABS: Troponin I 0.044 ng/mL (< 0.028)
[2018-07-02] MEDS ORDERED: Benzonatate 100 MG CAP PO PRN (01:02)
[2018-07-02] MEDS: Sodium Chloride 0.9% 1,000 ML IV SCH ×2 (01:02→14:40)
[2018-07-02] MEDS ORDERED: Ondansetron PF 4 MG/2 ML Vial IVP PRN (01:02)
[2018-07-02] MEDS ORDERED: Bisacodyl 5 MG TAB PO PRN (01:02)
[2018-07-02] MEDS ORDERED: cloNIDine 0.1 MG TAB PO PRN (01:02)
[2018-07-02] MEDS ORDERED: hydrALAZINE 20 MG/ML VIAL SLOW IVP PRN (01:02)
[2018-07-02] MEDS ORDERED: Nitroglycerin 0.4 MG TAB (25 Tab Bottle) SL PRN (01:02)
[2018-07-02] MEDS ORDERED: Acetaminophen 325 MG TAB PO PRN (01:02)
[2018-07-02] MEDS ORDERED: Senokot S 8.6-50 MG TAB PO PRN (01:02)
[2018-07-02] MEDS ORDERED: Estradiol 0.01% Vaginal Cream 42.5 gm Tube VAG SCH (01:30)
[2018-07-02 02:16] LABS: #Lymphocytes 0.2 thou/uL (1.20-3.40); #Monocytes 0.5 thou/uL (0.11-0.59); #Neutrophils 12.4 thou/uL (1.40-6.50); %Basophils 0.1 % (0.0-1.0); %Eosinophils 0.1 % (0.0-10.0); %Lymphocytes 1.1 % (21.0-51.0); %Monocytes 3.5 % (0.0-10.0); %Neutrophils 95.2 % (42.0-75.0); Hemoglobin 12.3 g/dL (12.0-16.0); Mean Corpuscular HGB CONC 35.3 g/dL (32.0-36.0); Mean Corpuscular Hemoglobin 36.2 pg (27.0-31.0); Mean Platelet Volume 7.4 fL (7.4-10.4); Platelet Count 149 thou/uL (130-400); RBC Distribution Width 14.1 % (11.5-14.5); Red Blood Cell (RBC) Count 3.39 mill/uL (4.20-5.40)
[2018-07-02] MEDS: Cefepime 1 GM in Sodium Chloride 0.9% 100 ML IVPB SCH ×2 (02:26→14:37)
[2018-07-02 02:32] LABS: Troponin I 0.053 ng/mL (< 0.028)
[2018-07-02 02:34] LABS: Anion Gap 15 mmol/L (10-20); BUN (Urea Nitrogen) 18 mg/dL (9.8-20.1); Calc. Creatinine Clearance 79 mL/min (70-130); Calcium 8.3 mg/dL (7.8-10.44); Carbon Dioxide 22 mmol/L (23-31); Chloride 108 mmol/L (98-107); Estimated GFR-MDRD 57; Glucose 194 mg/dL (80-115); Potassium 3.6 mmol/L (3.5-5.1); Sodium 141 mmol/L (136-145)
--- NOTE | 2018-07-02 04:32 | HP ---
PRIMARY CARE PHYSICIAN: Dr. Maycol [place]. PRIMARY SHEET METAL WORKER APPRENTICE: Micah Alanis MD CHIEF COMPLAINT: Cough and fever with shortness of breath. HISTORY OF PRESENTING ILLNESS: Ms. Grijalva is a 68-year-old female with known history of rheumatoid arthritis, on immunosuppressant medications as well as a history of asthma, who presented to the ER with the above-mentioned complaint. History is mainly obtained by the patient herself, and the electronic medical records have been reviewed. According to Ms. Grijalva, she has been feeling sick with wheezing and cough since the early part of May. She has traveled to [place] from first to third week of May and saw Dr. Alanis prior to her travel. She normally takes 5 mg of prednisone daily, but was given 40 mg of prednisone for the travel and because of the symptoms. She did see Dr. Alanis again after she has come back from her travel as she was still having symptoms. The prednisone was reduced to 20 mg daily, but she was supposed to continue to take it for a little bit. She was also referred to ENT and saw Dr. Jerald Ayon. She had what sounds like a laryngoscopy done and was found to have a nasal cyst, which was infected. She was treated with clindamycin and just finished the treatment yesterday. She reports that she is also getting done with 20 mg of prednisone as of yesterday and will start 5 mg from tomorrow. She came to the emergency room today because her symptoms are non-relenting. She continues to have persistent cough and wheezing and shortness of breath. She is bringing up frothy sputum, and today she noticed a fever of 101.6. She has been in general feeling poorly and very weak. She denies any chest pain, palpitations, orthopnea, or PND. She has noticed some loose stools, but no blood in her stools. She has no abdominal pain. She denies any dysuria, frequency, or urgency. Her is also falling sick at home and some grandkids also have been sick. All have upper respiratory tract infection like symptoms. Upon presentation to the emergency room, she was found to be febrile at 102.5 and tachycardic with a heart rate of 135. She was saturating 95% on room air with a blood pressure of 172/95. Her initial evaluation included a chest x-ray, which shows increased linear densities bilaterally, possibly left upper lobe developing pneumonia. EKG showed sinus tachycardia. She was given Rocephin, azithromycin, Solu-Medrol, nebulizer, and saline in the emergency room, and is now being admitted for sepsis with possible pneumonia. PAST MEDICAL HISTORY: 1. Rheumatoid arthritis. 2. Immunocompromised status because of immunosuppressive medications. 3. Macular degeneration. 4. Asthma. 5. Osteopenia. 6. Hypertension. PAST SURGICAL HISTORY: 1. Laminectomy x2 with spinal fusion, T13 to L3. 2. Cholecystectomy. 3. Hysterectomy. 4. Carpal tunnel surgery. FAMILY HISTORY: Father has had heart problems. Mother had COPD. ALLERGIES: GABAPENTIN, LEVOFLOXACIN, PREGABALIN. HOME MEDICATIONS: Multiple and as follow: 1. Estradiol vaginal cream. 2. Incruse Ellipta one inhalation daily. 3. Myrbetriq 25 mg daily. 4. Hydrochlorothiazide mg daily. 5. Folic acid 1 mg daily. 6. Multivitamin daily. 7. Remicade infusion. 8. Candesartan 8 mg daily. 9. Calcium and vitamin D daily. 10. Dexlansoprazole 60 mg daily. 11. Perforomist 20 mcg b.i.d. p.r.n. 12. Methotrexate every other day. 13. Singular daily. 14. Restasis eye drops. 15. p.o. q.i.d. 16. Trazodone 100 mg at bedtime. 17. Prednisone 20 mg daily. 18. Azathioprine 100 mg daily. CODE STATUS: Full code, discussed with the patient as well as her at bedside. REVIEW OF SYSTEMS: A 12-point review of system is done, it is negative except for those mentioned in the history and physical. LABORATORY EXAMINATION: Her CBC shows WBCs of 12.0 with 90% neutrophils, otherwise unremarkable. Serum chemistries upon presentation unremarkable. Lactic acid elevated to 3.2. Cardiac enzymes, troponin 0.030 and then 0.053. BNP normal. Urinalysis showed +1 bacteria with squamous epithelial cells. No leukocyte esterase or nitrite. IMAGING DATA: Chest x-ray by my evaluation shows possible left upper lobe opacity. No pulmonary edema. A 12-lead EKG shows normal sinus rhythm without any acute ST or T-wave changes by my review. PHYSICAL EXAMINATION: VITAL SIGNS: Most recent vital signs; temperature 98.8 with T-max of 99.3, pulse of 84, respirations 16, saturating 94% on room air, blood pressure 134/88. GENERAL: She appears sick and generalized weak. No acute distress. Awake, alert, and oriented x3. HEENT: Mucous membrane is slightly dry. No oropharyngeal exudate or erythema. Head is normocephalic and atraumatic. Pupils equal and reactive to light and accommodation. Extraocular movement intact. NECK: Supple without any lymphadenopathy, JVD, or bruit. CHEST: Evaluation shows few expiratory wheezes and decreased breath sounds in general. HEART: Rate and rhythm are regular without any murmurs, rubs, or gallops. ABDOMEN: Soft, nontender, and nondistended with positive bowel sounds. EXTREMITIES: Free of any cyanosis, clubbing, or edema. NEUROLOGICAL: Nonfocal. SKIN: Free of any rashes or bruises. Feels warm and dry to touch. PSYCHIATRIC: Normal affect. IMPRESSION AND PLAN: 1. Sepsis, likely secondary to pneumonia. She will be treated with broad-spectrum IV antibiotics given her immunocompromised status. We will treat her with cefepime and vancomycin to cover for Pseudomonas and methicillin-resistant Staphylococcus aureus. Blood cultures will be obtained, and we will taper the antibiotic based on the results. We will send out urinary Legionella and pneumococcal antigens. Influenza rapid swab was done in the emergency room, and it is negative. At this time, bacterial infection is suspected rather than viral. We will continue normal saline for now. 2. Dyspnea secondary to #1 as well as mild asthma exacerbation. We will start her on IV Solu-Medrol scheduled and p.r.n. nebulizer and restart her home medication and add Dulera as well. We will request consultation with the Pulmonary Medicine physician, Dr. Alanis. She is currently hemodynamically stable. 3. History of rheumatoid arthritis. Restart her azathioprine and methotrexate. Remicade infusion in the outpatient setting. 4. History of asthma. Restart her home medications of Singulair as well as formoterol. Oxygen p.r.n. Nebs p.r.n. 5. History of hypertension. Restart her candesartan. Add hydrochlorothiazide if uncontrolled. 6. Code status. Full code, discussed with the patient. 7. Deep venous thrombosis and gastrointestinal prophylaxis. DISPOSITION: Ms. Grijalva is currently being admitted to the hospital with sepsis secondary to pneumonia. Estimated length of stay at this time is at least 2 to 3 midnights. Further management will depend upon her clinical course. Job ID: [id number]
[2018-07-02] MEDS: Vancomycin HCl 1 GM in Premix Bag 1 BAG IVPB SCH ×2 (04:41→15:46)
[2018-07-02] MEDS: methylPREDNISolone Sod Succ/PF 125 MG/2 ML VIAL IVP SCH ×3 (05:21→17:23)
[2018-07-02 07:28] LABS: Legionella Urinary Ag Negative (Negative)
[2018-07-02] MEDS: Mometasone/Formoterol 120 PUFF INHALER INH SCH ×2 (07:30→18:42)
[2018-07-02 07:31] LABS: Strep pneumo Urine Ag NEGATIVE (NEGATIVE)
[2018-07-02] MEDS: Ipratropium Bromide 2.5 ml Neb NEB SCH ×3 (07:34→18:43)
[2018-07-02] MEDS ORDERED: Cefepime 1 GM in Sodium Chloride 0.9% 100 ML IVPB SCH (09:00)
[2018-07-02] MEDS ORDERED: Methotrexate Sodium 2.5 MG TAB PO SCH (09:00)
[2018-07-02] MEDS ORDERED: Non-Formulary Item 1 EACH (Umeclidinium Bromide [Incruse Ellipta] 1 INH) IH SCH (09:00)
[2018-07-02] MEDS ORDERED: Vancomycin HCl 1 GM in Premix Bag 1 BAG IVPB SCH (09:00)
[2018-07-02] MEDS: Pilocarpine 5 MG TAB PO SCH ×4 (09:03→19:59)
[2018-07-02] MEDS: azaTHIOprine 50 MG TAB PO SCH (09:03)
[2018-07-02] MEDS: guaiFENesin ER 600 MG TAB PO SCH ×2 (09:03→19:58)
[2018-07-02] MEDS: Saccharomyces boulardii 250 MG CAP PO SCH (09:04)
[2018-07-02] MEDS: Famotidine 20 MG TAB PO SCH ×2 (09:04→19:58)
[2018-07-02] MEDS: Multivitamin W/ Minerals 1 TAB PO SCH (09:04)
[2018-07-02] MEDS: Folic Acid 1 MG TAB PO SCH (09:05)
[2018-07-02] MEDS: Enoxaparin Sodium 40 MG/0.4 ML SYRINGE SC SCH (09:05)
[2018-07-02] MEDS: cycloSPORINE 0.05% Ophthalmic Droperette EA EYE SCH ×2 (09:54→19:59)
[2018-07-02 13:31] VITALS: BMI 32.4
--- NOTE | 2018-07-02 16:02 | PDOC.PN ---
- Subjective Encounter Start Date: 07/02/18 Encounter Start Time: 15:45 Subjective: f/u for sepsis secondary to CAP on Cefepime/Vancomycin. States feeling -: better but still coughing. No fever. - Objective Resuscitation Status - Order Detail: 07/02/18 03:10 Resuscitation Status Routine Resuscitation Status: FULL: Full Resuscitation Discussed with: discussed w pt MICHAEL Reviewed: Yes Vital Signs & Weight: Vital Signs (12 hours) Temp Pulse Resp BP Pulse Ox 07/02/18 13:47 78 16 94 L 07/02/18 11:55 98.8 F 68 16 130/60 94 L 07/02/18 09:15 97 07/02/18 07:34 65 16 95 07/02/18 07:30 67 16 95 07/02/18 07:28 97.1 F L 66 16 120/59 L 97 07/02/18 04:00 99.1 F 65 18 114/57 L 93 L Weight Admit Weight 195 lb 9.6 oz Weight 195 lb I&O: 07/01/18 07/02/18 07/03/18 06:59 06:59 06:59 Intake Total 1030 Output Total 980 Balance 50 Result Diagrams: 07/02/18 02:05 07/02/18 02:05 Additional Labs: Microbiology 07/01/18 17:53 Nasal swab Influenza Types A,B Direct EIA - Final 07/01/18 20:20 Venous blood - Left Hand Blood Culture - Preliminary Specimen has been received and culture in progress. No Growth to date. 07/01/18 20:10 Venous blood - Right Arm Blood Culture - Preliminary Specimen has been received and culture in progress. No Growth to date. Laboratory Tests 07/01/18 07/01/18 07/01/18 20:10 20:10 20:10 WBC 12.0 H Lactic Acid 3.2 H Troponin I B-Natriuretic Peptide 55.5 Ur L.pneumophila Ag Ur Strep pneumoniae Ag 07/01/18 07/01/18 07/02/18 20:10 23:00 00:03 WBC Lactic Acid 3.0 H Troponin I 0.030 H 0.044 H B-Natriuretic Peptide Ur L.pneumophila Ag Ur Strep pneumoniae Ag 07/02/18 07/02/18 02:05 Unknown WBC Lactic Acid Troponin I 0.053 H B-Natriuretic Peptide Ur L.pneumophila Ag Negative Ur Strep pneumoniae Ag NEGATIVE Radiology Reviewed by me: Yes (PCXR - chronic changes bilat) EKG Reviewed by me: Yes (Tele - SR) Phys Exam - Physical Examination Constitutional: NAD HEENT: PERRLA, sclera anicteric, oral pharynx no lesions Neck: no nodes, no JVD, supple, full ROM coarse sounds bilat S1, S2 Cardiovascular: RRR, no significant murmur, no rub, gallop Gastrointestinal: soft, non-tender, no distention, positive bowel sounds Musculoskeletal: no edema, pulses present Neurological: normal sensation, moves all 4 limbs Psychiatric: A&O x 3 Skin: normal turgor, cap refill <2 seconds Dx/Plan (1) Sepsis Code(s): A41.9 - SEPSIS, UNSPECIFIED ORGANISM Status: Acute Comment: Suspected gm+ cocci, continue Cefepime/Vancomycin, IVF's (2) Pneumonia Code(s): J18.9 - PNEUMONIA, UNSPECIFIED ORGANISM Status: Acute Comment: Continue Cefepime/Vancomycin, Solumedrol, Dulera, Duonebs (3) Dyspnea Code(s): R06.00 - DYSPNEA, UNSPECIFIED Status: Acute Comment: Secondary to PNA, see above, pulmonary supportive mgmt (4) Immunosuppression due to drug therapy Code(s): Z79.899 - 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
[2018-07-02] MEDS ORDERED: Labetalol HCl 100 MG/20 ML VIAL ONE (17:15)
[2018-07-02] MEDS: Cefdinir 300 MG CAP PO SCH (19:58)
[2018-07-02] MEDS: traZODone HCl 50 MG TAB PO SCH (19:58)
[2018-07-02] MEDS: Montelukast Sodium 10 mg Tablet PO SCH (19:58)
[2018-07-02] MEDS ORDERED: cefTRIAXone\\ROCEPHIN 1 GM in Sodium Chloride 0.9% 100 ML IVPB SCH (20:00)
[2018-07-02] MEDS ORDERED: Zolpidem Tartrate 5 MG TAB PO SCH (20:30)
[2018-07-02] MEDS ORDERED: Azithromycin 500 MG in Sodium Chloride 0.9% 250 ML 250 ML IVPB SCH (21:00)
[2018-07-03] MEDS: Ipratropium Bromide 2.5 ml Neb NEB SCH ×4 (00:05→18:34)
--- NOTE | 2018-07-03 01:49 | CON ---
DATE OF CONSULTATION: 07/02/2018 HISTORY OF PRESENT ILLNESS: Ms. Grijalva is a pleasant 68-year-old female who has asthma. She was recently seen in the office for asthma and we are in process of tapering her steroids back down. She is supposed to go from 20 mg a day to 10 mg a day on her prednisone. She subsequently was admitted to the hospital at 3 o'clock this morning after presenting to the emergency room about 9 o' clock last night. She decided to come to the hospital because of a temperature of 102 at home. She took Tylenol just prior to leaving for the emergency room. PAST MEDICAL HISTORY: 1. Recent past medical history is remarkable for upper airway endoscopy by Dr. Ayon, which identified a cyst of her sinus cavities that was reportedly infected. She took a round of clindamycin for that. She has a history of rheumatoid arthritis. 2. History of macular degeneration. 3. Hypertension. 4. History of laminectomy with spinal fusion. 5. History of cholecystectomy. 6. Status post hysterectomy. 7. History of carpal tunnel surgery. FAMILY HISTORY: Lung problems and heart disease. SOCIAL HISTORY: Not obtained: ALLERGIES: SHE REPORTS ALLERGIES TO GABAPENTIN, LEVAQUIN, AND PREGABALIN MEDICATIONS: Prior to admission, she was on: 1. Increased estrogen. 2. Myrbetriq. 3. Hydrochlorothiazide. 4. Folate. 5. Remicade. 6. Candesartan. 7. Dexilant. 8. Perforomist nebulizer treatments twice a day. 9. Methotrexate. 10. Singulair. 11. Restasis. 12. Trazodone. 13. Imuran. 14. Prednisone. REVIEW OF SYSTEMS: Ten-point review of systems complted, otherwise negative. States she is feeling better. She has not been febrile since she is admitted. PHYSICAL EXAMINATION: GENERAL: States she is feeling better. VITAL SIGNS: She is afebrile. Heart rate 78, respiratory rate 16, oximetry is 94 on room air, blood pressure 130/60. HEENT: Pupils are equal. Sclerae are anicteric. Extraocular movements are full. NECK: Supple. No lymphadenopathy. LUNGS: Remarkable for diffuse coarse wheezes. She is not in distress and is not using accessory muscles. HEART: Regular rhythm. S1 and S2 are normal. ABDOMEN: Soft and nontender. EXTREMITIES: No clubbing, cyanosis, or edema. IMAGING DATA: Chest radiograph was reviewed. There was one very small area in her left upper lobe, likely to be an area of atelectasis secondary to mucus plugging than an actual infectious process in my opinion. IMPRESSION: Asthmatic bronchitis. PLAN: 1. Continue nebulizer treatments. 2. Antibiotics need to be simplified. Steroid dose can be reduced as well. She may be a candidate to go home for close outpatient followup tomorrow. This is a 50 minute consult, with greater than 50% of time spent on unit coordinating care. Job ID: [id number] [facility]OSPITALBraden
[2018-07-03] MEDS: Vancomycin HCl 1 GM in Premix Bag 1 BAG IVPB SCH (04:52)
[2018-07-03] MEDS: Sodium Chloride 0.9% 1,000 ML IV SCH ×2 (04:54→09:56)
[2018-07-03] MEDS: Mometasone/Formoterol 120 PUFF INHALER INH SCH ×2 (06:23→18:11)
[2018-07-03] MEDS: Multivitamin W/ Minerals 1 TAB PO SCH (09:53)
[2018-07-03] MEDS: azaTHIOprine 50 MG TAB PO SCH (09:53)
[2018-07-03] MEDS: Famotidine 20 MG TAB PO SCH ×2 (09:53→20:27)
[2018-07-03] MEDS: Cefdinir 300 MG CAP PO SCH ×2 (09:53→20:27)
[2018-07-03] MEDS: Enoxaparin Sodium 40 MG/0.4 ML SYRINGE SC SCH (09:54)
[2018-07-03] MEDS: Saccharomyces boulardii 250 MG CAP PO SCH (09:54)
[2018-07-03] MEDS: Pilocarpine 5 MG TAB PO SCH ×4 (09:54→20:28)
[2018-07-03] MEDS: guaiFENesin ER 600 MG TAB PO SCH ×2 (09:55→20:28)
[2018-07-03] MEDS: cycloSPORINE 0.05% Ophthalmic Droperette EA EYE SCH ×2 (09:55→21:23)
[2018-07-03] MEDS: Folic Acid 1 MG TAB PO SCH (09:55)
[2018-07-03 15:36] LABS: Vancomycin, Trough 13.3 ug/mL
--- NOTE | 2018-07-03 17:28 | PRG ---
DATE OF SERVICE: 07/03/2018 SUBJECTIVE: Charisse Grijalva says she feels about the same. She is still wheezing. She actually did get out and walk in the [place] today. OBJECTIVE: VITAL SIGNS: Blood pressure 146/65, heart rate is 84, and respiratory rate 16, she is afebrile. LUNGS: Remarkable for end-expiratory wheezes. HEART: Regular rhythm. S1 and S2 normal. ABDOMEN: Soft and nontender. EXTREMITIES: Without edema. LABORATORY DATA: Microbiology has been reviewed. It is all negative. She has no new lab today. IMPRESSION: 1. Febrile illness that is resolved. 2. Asthma exacerbation, mild. 3. Nasopharyngeal cyst that was supposed to be addressed in the office by Dr. Ayon tomorrow. Talked to him today. He will just address this next week in the office. This is not the cause of the fever. 4. I think it is reasonable to discontinue her IV antibiotics and also reasonable to discontinue her IV steroids at this point and we will place her on p.o. prednisone tomorrow. She may be a candidate for discharge in the morning. Job ID: [id number]
[2018-07-03] MEDS ORDERED: Zolpidem Tartrate 5 MG TAB PO PRN (17:32)
--- NOTE | 2018-07-03 17:34 | PDOC.PN ---
- Subjective Encounter Start Date: 07/03/18 Encounter Start Time: 17:20 Subjective: f/u for ?sepsis and ?PNA. States feeling better overall but still has -: wheezing. No fever or chills. - Objective Resuscitation Status - Order Detail: 07/02/18 03:10 Resuscitation Status Routine Resuscitation Status: FULL: Full Resuscitation Discussed with: discussed w pt MICHAEL Reviewed: Yes Vital Signs & Weight: Vital Signs (12 hours) Temp Pulse Resp BP BP Pulse Ox 07/03/18 16:15 98.7 F 84 16 143/65 H 95 07/03/18 14:22 91 18 96 07/03/18 12:00 98.1 F 75 16 133/64 95 07/03/18 10:56 78 18 95 07/03/18 08:00 97 07/03/18 07:20 97.8 F 79 18 143/63 H 97 07/03/18 06:26 91 18 98 07/03/18 06:23 92 20 98 Weight Admit Weight 195 lb 9.6 oz Weight 201 lb 14.4 oz I&O: 07/02/18 07/03/18 07/04/18 06:59 06:59 06:59 Intake Total 1030 1148 Output Total 980 800 Balance 50 348 Result Diagrams: 07/02/18 02:05 07/02/18 02:05 Additional Labs: Microbiology 07/02/18 20:20 Stool C. difficile GDH Antigen & Toxins - Final 07/01/18 17:53 Nasal swab Influenza Types A,B Direct EIA - Final 07/02/18 Unknown Urine voided Urine Culture - Preliminary NO GROWTH AT 24 HOURS 07/01/18 20:20 Venous blood - Left Hand Blood Culture - Preliminary Specimen has been received and culture in progress. No Growth to date. 07/01/18 20:20 Venous blood - Left Hand Blood Culture - Preliminary NO GROWTH AT 48 HOURS 07/01/18 20:10 Venous blood - Right Arm Blood Culture - Preliminary Specimen has been received and culture in progress. No Growth to date. 07/01/18 20:10 Venous blood - Right Arm Blood Culture - Preliminary NO GROWTH AT 48 HOURS Laboratory Tests 07/01/18 07/01/18 07/01/18 20:10 20:10 20:10 WBC 12.0 H Lactic Acid 3.2 H Troponin I B-Natriuretic Peptide 55.5 Ur L.pneumophila Ag Ur Strep pneumoniae Ag 07/01/18 07/01/18 07/02/18 20:10 23:00 00:03 WBC Lactic Acid 3.0 H Troponin I 0.030 H 0.044 H B-Natriuretic Peptide Ur L.pneumophila Ag Ur Strep pneumoniae Ag 07/02/18 07/02/18 02:05 Unknown WBC Lactic Acid Troponin I 0.053 H B-Natriuretic Peptide Ur L.pneumophila Ag Negative Ur Strep pneumoniae Ag NEGATIVE EKG Reviewed by me: Yes (Tele - SR) Phys Exam - Physical Examination Constitutional: NAD HEENT: PERRLA, sclera anicteric, oral pharynx no lesions Neck: no nodes, no JVD, supple, full ROM exp wheezes bilat S1, S2 Cardiovascular: RRR, no significant murmur, no rub, gallop Gastrointestinal: soft, non-tender, no distention, positive bowel sounds mild peripheral edema Musculoskeletal: pulses present Neurological: normal sensation, moves all 4 limbs Psychiatric: A&O x 3 Skin: normal turgor, cap refill <2 seconds Dx/Plan (1) Sepsis Code(s): A41.9 - SEPSIS, UNSPECIFIED ORGANISM Status: Acute Comment: Suspected now resolved (2) Pneumonia Code(s): J18.9 - PNEUMONIA, UNSPECIFIED ORGANISM Status: Acute Comment: ? PNA but likely chronic changes noted on chest imaging, IV abx d/c'd and transitioned to Omnicef (3) Dyspnea Code(s): R06.00 - DYSPNEA, UNSPECIFIED Status: Acute Comment: Improved, likely asthmatic component (4) Immunosuppression due to drug therapy Code(s): Z79.899 - OTHER FDC (CURRENT) DRUG THERAPY Status: Chronic Comment: chronic suppression due to RA, continue maintenance therapy - Plan plan discussed w/ family, continue antibiotics, PT/OT, respiratory therapy, out of bed/ambulate, DVT proph w/SCDs Stable overall -: OOB/ambulate -: Continue Omnicef -: Continue Solumedrol -: Ambien 5mg HS * Likely home 07/04/18
[2018-07-03] MEDS: Montelukast Sodium 10 mg Tablet PO SCH (20:28)
[2018-07-03] MEDS: traZODone HCl 50 MG TAB PO SCH (20:29)
[2018-07-04] MEDS: Ipratropium Bromide 2.5 ml Neb NEB SCH ×3 (02:05→10:16)
[2018-07-04] MEDS: Sodium Chloride 0.9% 1,000 ML IV SCH (02:23)
[2018-07-04] MEDS: Mometasone/Formoterol 120 PUFF INHALER INH SCH (07:27)
[2018-07-04 08:03] VITALS: BP 154/70; TEMP 98.3
[2018-07-04] MEDS: azaTHIOprine 50 MG TAB PO SCH (08:06)
[2018-07-04] MEDS: Cefdinir 300 MG CAP PO SCH (08:08)
[2018-07-04] MEDS: Enoxaparin Sodium 40 MG/0.4 ML SYRINGE SC SCH (08:08)
[2018-07-04] MEDS: Folic Acid 1 MG TAB PO SCH (08:09)
[2018-07-04] MEDS: Famotidine 20 MG TAB PO SCH (08:09)
[2018-07-04] MEDS: guaiFENesin ER 600 MG TAB PO SCH (08:09)
[2018-07-04] MEDS: Multivitamin W/ Minerals 1 TAB PO SCH (08:11)
[2018-07-04] MEDS: cycloSPORINE 0.05% Ophthalmic Droperette EA EYE SCH (08:13)
[2018-07-04] MEDS: Pilocarpine 5 MG TAB PO SCH (09:37)
[2018-07-04] MEDS: Saccharomyces boulardii 250 MG CAP PO SCH (09:38)
--- NOTE | 2018-07-04 12:37 | PRG ---
DATE OF SERVICE: 07/04/2018 SUBJECTIVE: Ms. Grijalva is stable. She is not back to normal, but she is getting closer. OBJECTIVE: VITAL SIGNS: She is afebrile. Heart rate is 92, respiratory rate is 20, oximetry is 95% on room air, and blood pressure 154/70. LUNGS: She still has faint diffuse wheezes. HEART: Regular rhythm. ABDOMEN: Soft. IMPRESSION: 1. Febrile illness, ? Viral. 2. Asthma. Recommended she will be discharged for close outpatient followup. She will go on 40 mg a day of prednisone. See me on Sunday or Sunday. Ceftin 250 mg twice a day will be prescribed as well. She is to follow up with ENT surgery next week. She could also be discharged on Omnicef ,either cephalosporin is fine. Job ID: [id number] MTDD
--- NOTE | 2018-07-05 05:57 | DIS ---
DATE OF ADMISSION: 07/01/2018 DATE OF DISCHARGE: 07/04/2018 DISCHARGE DIAGNOSES: 1. Sepsis suspected, resolved. 2. Asthmatic bronchitis, improved. 3. Acute dyspnea secondary to #1, improved. 4. Chronic immunosuppression therapy. 5. Rheumatoid arthritis. 6. Hypertension. CONSULTATIONS: Dr. Alanis with Pulmonology/Critical Care Service. PERTINENT LAB AND X-RAY FINDINGS: Lactic acid level ranged between 3.0 to 3.2. Troponin I ranged between 0.030 to 0.053. BNP 56. CBC showed white blood cell count ranged between 12.0 to 13.0. Urine Legionella and streptococcal pneumonia antigen negative on 05/2018. Influenza A and B antigen dated 07/01/2018, negative. Blood cultures x2 dated 07/01/2018, showed no growth at 48 hours. C difficile antigen and toxin dated 07/02/2018, negative. Urine culture dated 07/02/2018, showed no growth at 24 hours. Portable chest x-ray dated 07/01/2018, showed chronic lung changes bilaterally, questionable density in the left upper lobe. HOSPITAL COURSE: The patient was admitted to the telemetry unit after initially presenting with shortness of breath, fever, and cough. The patient underwent general evaluation including chest imaging and initial concern for possible sepsis picture given patient's fever of 102.5 degrees Fahrenheit and tachycardia. The patient was placed on broad-spectrum antibiotic therapy to include Rocephin and Zithromax as well as continuing with cefepime and vancomycin. The patient was given general pulmonary supportive management in conjunction with bronchodilator therapy and IV Solu-Medrol. The patient did clinically improve with aggressive pulmonary supportive management. The patient was de-escalated on her antibiotic regimen to Omnicef after consultation with the Pulmonology Service. The patient maintained O2 saturations in the mid 90% range on room air and overall remained clinically stable in regard to pulmonary status. Overall, the patient remained clinically stable without recurrence of documented fever during the remainder of the hospital course. The patient tolerated regular oral intake and ambulated without assistance or difficulty. I examined the patient at the time of discharge and discussed followup instructions. The patient overall clinically stable and ready for discharge on 07/04/2018. DISCHARGE MEDICATIONS: 1. Imuran 100 mg p.o. daily. 2. Calcium carbonate 1500 mg p.o. b.i.d. 3. Candesartan 8 mg p.o. daily. 4. Vitamin D3 of 2000 units p.o. daily. 5. Dexilant 60 mg p.o. daily. 6. Estradiol vaginal cream 1 application 2 times per week. 7. Folic acid 1 mg p.o. daily. 8. Perforomist 20 mcg in each naris b.i.d. 9. Hydrochlorothiazide 12.5 mg p.o. daily. 10. Remicade q.8 weeks. 11. Methotrexate 2.5 mg 3 times per week. 12. Myrbetriq extended release 25 mg p.o. daily. 13. Multivitamin 1 tablet p.o. daily. 14. Pilocarpine 15 mg p.o. q.i.d. 15. Trazodone 100 mg p.o. at bedtime. 16. Incruse Ellipta 62.5 mcg inhaled daily. 17. Omnicef 300 mg p.o. b.i.d. 18. Mucinex ER 600 mg p.o. b.i.d. 19. Singulair 10 mg p.o. at bedtime. 20. Prednisone 40 mg p.o. daily. FOLLOWUP: The patient will follow up with Dr. Maycol Dallas within 7 days of discharge. The patient will follow up with Dr. Micah Alanis. The patient will follow up with Dr. Jerald Ayon with ENT Service within a week. CONDITION ON DISCHARGE: Stable. ACTIVITY: Ad-yaakov. DIET: Heart healthy. CODE STATUS: Full. DISPOSITION: Home on 07/04/2018. Total time preparing and coordinating discharge is 35 minutes. Job ID: [id number]
[2018-07-08] MEDS ORDERED: INFLIXIMAB IVPB SCH (09:00)
== END 2018-07-04 13:41 | disposition home or self-care (01) | DRG 872 ==
LOC: SCSER 19:44 → 2NO 21:20
PROVIDERS: ADMIT Internal Medicine; ATTEND Internal Medicine
DX: A41.9 Sepsis, unspecified organism (principal); J45.901 Unspecified asthma with (acute) exacerbation; I10 Essential (primary) hypertension; M06.9 Rheumatoid arthritis, unspecified; Z88.1 Allergy status to other antibiotic agents; Z88.8 Allergy status to other drugs, medicaments and biological substances; Z79.52 Long term (current) use of systemic steroids; Z79.899 Other long term (current) drug therapy
CPT/HCPCS: 36415; 71046; 80048; 80053; 80202; 81003; 81015; 82553; 83605; 83690; 83880; 84484; 85025; 87040; 87086; 87324; 87449; 87804; 87899; 93005; 94640; 94760; 96365; 96367; 96375; J0456; J0692; J0696; J1650; J2405; J2920; J2930; J3370; J7050; J7500; J7620; J8610

== ENCOUNTER 2018-09-09 00:36 | Inpatient (IN) | payer MEDICARE ==
[2018-09-09] MEDS ORDERED: Ibuprofen 800 MG TAB ONE (00:49)
[2018-09-09] MEDS ORDERED: Ondansetron PF 4 MG/2 ML Vial ONE (01:27)
[2018-09-09 01:28] LABS: ALT (SGPT) 17 U/L (8-55); AST (SGOT) 18 U/L (5-34); Albumin 3.8 g/dL (3.4-4.8); Alkaline Phosphatase 57 U/L (40-150); Anion Gap 16 mmol/L (10-20); BUN (Urea Nitrogen) 14 mg/dL (9.8-20.1); Bilirubin, Total 0.9 mg/dL (0.2-1.2); Calc. Creatinine Clearance 0 mL/min (70-130); Calcium 8.8 mg/dL (7.8-10.44); Carbon Dioxide 25 mmol/L (23-31); Chloride 105 mmol/L (98-107); Estimated GFR-MDRD 52; Globulin 2.4 g/dL (2.4-3.5); Glucose 113 mg/dL (80-115); Potassium 3.1 mmol/L (3.5-5.1); Protein, Total 6.2 g/dL (6.0-8.3); Sodium 143 mmol/L (136-145)
[2018-09-09] MEDS ORDERED: Potassium Chloride 20 MEQ TAB ONE (01:31)
[2018-09-09 01:33] LABS: Band 7 % (5-11); Eosinophils 1 % (0-10); Hemoglobin 13.7 g/dL (12.0-16.0); Lymphocytes 8 % (21-51); MDiff Complete? YES; Mean Corpuscular HGB CONC 35.6 g/dL (32.0-36.0); Mean Corpuscular Hemoglobin 34.1 pg (27.0-31.0); Mean Corpuscular Volume 95.6 fL (78.0-98.0); Mean Platelet Volume 7.9 fL (7.4-10.4); Monocytes 3 % (0-10); Neutrophil 81 % (42-75); Platelet Count 167 thou/uL (130-400); RBC Distribution Width 13.4 % (11.5-14.5); Red Blood Cell (RBC) Count 4.03 mill/uL (4.20-5.40); White Blood Cell (WBC) Count 9.2 thou/uL (4.8-10.8)
[2018-09-09] MEDS ORDERED: Sodium Chloride For Inhalation 0.9% 3 ML NEB ONE (01:37)
[2018-09-09] MEDS ORDERED: Cefepime 2 GM VIAL ONE (01:40)
[2018-09-09] MEDS ORDERED: Sodium Chloride 0.9% 100 ML ONE (01:40)
[2018-09-09] MEDS ORDERED: Azithromycin 500 MG VIAL ONE (02:02)
[2018-09-09] MEDS ORDERED: Sodium Chloride 0.9% 1,000 ML IV SCH (03:30)
[2018-09-09] MEDS ORDERED: Ondansetron PF 4 MG/2 ML Vial IVP PRN (03:30)
[2018-09-09] MEDS ORDERED: Acetaminophen 325 MG TAB PO PRN (03:30)
[2018-09-09] MEDS ORDERED: Ondansetron ODT 4 MG TAB SL PRN (03:30)
[2018-09-09 03:54] VITALS: BMI 33.7
[2018-09-09 05:16] LABS: Lactic Acid 2.8 mmol/L (0.5-2.2)
[2018-09-09] MEDS: Vancomycin HCl 750 MG in Sodium Chloride 0.9% 250 ML 250 ML IVPB SCH ×2 (06:08→18:01)
[2018-09-09] MEDS ORDERED: Artificial Tears 18 DROP/0.9 ML EA EYE PRN (07:36)
[2018-09-09] MEDS ORDERED: Loratadine 10 MG TAB PO PRN (07:36)
[2018-09-09] MEDS ORDERED: Loperamide HCl 2 MG CAP PO PRN (07:36)
[2018-09-09] MEDS ORDERED: Senokot S 8.6-50 MG TAB PO PRN (07:36)
[2018-09-09] MEDS ORDERED: Bisacodyl 5 MG TAB PO PRN (07:36)
[2018-09-09] MEDS ORDERED: Sodium Chloride 0.65% Nasal 44 ML BOT EA NARE PRN (07:36)
[2018-09-09] MEDS ORDERED: Cepastat Lozenges 1 LOZ PO PRN (07:36)
[2018-09-09] MEDS ORDERED: Eucerin (Mineral Oil/Petrolatum,White) 30 gm Jar TOP PRN (07:36)
[2018-09-09] MEDS ORDERED: hydrALAZINE 20 MG/ML VIAL SLOW IVP PRN (07:36)
[2018-09-09] MEDS ORDERED: Fluticasone Propionate Nasal Spray 16 gm Bottle NASAL SCH (07:45)
--- NOTE | 2018-09-09 08:15 | PDOC.PULCN ---
Pulmonology Consult: HPI - Date of Consult Date: 09/09/18 Time: 08:00 - Consult Details Reason for Consult: hypoxia Requesting Physician: Iglesia - History of Present Illness HPI: ALEAH CRAIN is a 68 year-old F w/ PMH including RA, shogrens, asthma, htn who comes in with 1 week of increasing shortness of breath and wheezing with fever starting yesterday. She states she has productive cough. Worse with laying down. States she had a normal echo >1 year ago at [facility] heart. Temp to 103 at home. She was discharged from the hospital on 07/04 after a three day stay for pneumonia. Pulmonology Consult: ROS - Review of Systems Constitutional: fever, weakness. negative: chills, sweats Cardiovascular: chest pain Respiratory: congestion, cough, exercise intolerance, orthopnea, productive cough, short of breath, wheezing Pulmonology Consult: PMH Source: patient Past Medical History: RA, shogrens, asthma, osteopenia, htn - Family History Pertinent family history: non-contributory - Social History Smoking Status: Never smoker Alcohol Use: rarely Drug Use History: none Living Situation: , with partner Pulmonology Consult: Meds - Medications MAR Reviewed: Yes Medications: Current Medications Acetaminophen (Tylenol) 650 mg PO Q4H PRN PRN Reason: Headache/Fever or Pain Stop: 09/09/18 13:54 Albuterol/Ipratropium (Duoneb) 3 ml NEB Q4H PRN PRN Reason: SOB &/or Wheezing Stop: 09/09/18 13:54 Artificial Tears (Tears Naturale) 2 drop EA EYE PRN PRN PRN Reason: Dry Eyes Azelastine HCl (Azelastine) 0 ml NS BID JOAQUIM Bisacodyl (Dulcolax) 10 mg PO DAILYPRN PRN PRN Reason: Constipation Calcium Carbonate (Caltrate) 600 mg PO BID JOAQUIM Cholecalciferol (Vitamin D3) 1,000 units PO DAILY JOAQUIM Cyclosporine (Restasis) 0 ml EA EYE BID JOAQUIM Enoxaparin Sodium (Lovenox) 40 mg SC 0900 JOAQUIM Fluticasone Propionate (Flonase Nasal [place]) 0 gm NASAL DAILY JOAQUIM Folic Acid (Folvite) 1 mg PO DAILY JOAQUIM Guaifenesin (Mucinex) 600 mg PO Q12HR JOAQUIM Guaifenesin (Robitussin Sf) 200 mg PO Q4H PRN PRN Reason: Cough Hydralazine HCl (Apresoline) 10 mg SLOW IVP Q4H PRN PRN Reason: SBP > 180 and HR < 70 Cefepime HCl 2 gm/ Sodium (Chloride) 100 mls @ 200 mls/hr IVPB 0200,1400 [facility] Vancomycin HCl 750 mg/ Sodium (Chloride) 250 mls @ 250 mls/hr IVPB 0600,1800 [facility] Last Admin: 09/09/18 06:08 Dose: 250 mls Potassium Chloride/Sodium Chloride (1/2 Ns W/Kcl 20 Meq) 1,000 mls @ 125 mls/ hr IV .Q8H [facility] Azithromycin 500 mg/ Sodium (Chloride) 250 mls @ 250 mls/hr IVPB Q24HR [facility] Iron/Minerals/Multivitamins (Theragran M) 1 tab PO DAILY [facility] Loperamide HCl (Imodium) 2 mg PO PRN PRN PRN Reason: Diarrhea/Loose Stools Loratadine (Claritin) 10 mg PO DAILYPRN PRN PRN Reason: Sinus Symptoms Mineral Oil/White Petrolatum (Eucerin Cream) 0 gm TOP BIDPRN PRN PRN Reason: Dry Skin Mirabegron (Myrbetriq Er) 25 mg PO DAILY [facility] Miscellaneous Medication (Pharmacy To Dose) 1 each IVPB ONE PRN PRN Reason: DOSING Stop: 10/09/18 05:15 Montelukast Sodium (Singulair) 10 mg PO QPM [facility] Ondansetron HCl (Zofran) 4 mg IVP Q6H PRN PRN Reason: Nausea/Vomiting Stop: 09/09/18 13:54 Ondansetron HCl (Zofran Odt) 4 mg SL Q6H PRN PRN Reason: Nausea/Vomiting Stop: 09/09/18 13:54 Pantoprazole Sodium (Protonix) 40 mg PO DAILY [facility] Eszopiclone [Lunesta (] 3 Mg) 0 each PO HS [facility] Pilocarpine HCl (Salagen) 15 mg PO QID [facility] Prednisone (Prednisone) 5 mg PO DAILY [facility] Saccharomyces Boulardii (Florastor) 250 mg PO DAILY [facility] Senna/Docusate Sodium (Senokot S) 2 tab PO BID PRN PRN Reason: Constipation Sodium Chloride ([place] Nasal [place] 0.65%) 0 ml EA NARE QIDPRN PRN PRN Reason: Nasal Congestion Sodium Chloride (Flush - Normal Saline) 10 ml IVF Q12HR JOAQUIM Sodium Chloride (Flush - Normal Saline) 10 ml IVF PRN PRN PRN Reason: Saline Flush Throat Lozenges (Cepastat Lozenges) 1 yodit PO Q2H PRN PRN Reason: Sore Throat Trazodone HCl (Desyrel) 100 mg PO HS JOAQUIM - Allergies Allergies/Adverse Reactions: Allergies Allergy/AdvReac Type Severity Reaction Status Date / Time gabapentin Allergy Verified 04/08/14 08:50 levofloxacin [From Levaquin] Allergy Verified 04/08/14 08:50 pregabalin [From Lyrica] Allergy Verified 04/08/14 08:50 TAPE ADHESIVE Allergy Uncoded 04/16/14 17:35 Pulmonology Consult: PE - Physical Exam Constitutional: NAD HEENT: PERRLA, moist MMs Neck: no nodes Cardiovascular: RRR, no significant murmur Respiratory: rhonchi (left lower lobe), stridor Gastrointestinal: soft, non-tender, no distention, positive bowel sounds Musculoskeletal: no edema, pulses present Neurological: non-focal, moves all 4 limbs Psychiatric: normal affect, A&O x 3 Skin: no rash, cap refill <2 seconds Pulmonology Consult: Results - Labs Result Diagrams: 09/09/18 01:00 09/09/18 01:00 Pulmonology Consult: A/P - Problem (1) Community acquired bacterial pneumonia Current Visit: Yes Code(s): J15.9 - UNSPECIFIED BACTERIAL PNEUMONIA Status: Acute (2) Lactic acidosis Current Visit: Yes Code(s): E87.2 - ACIDOSIS Status: Acute (3) Asthma Current Visit: Yes Code(s): J45.909 - UNSPECIFIED ASTHMA, UNCOMPLICATED Status: Chronic (4) HTN (hypertension) Current Visit: Yes Code(s): I10 - ESSENTIAL (PRIMARY) HYPERTENSION Status: Chronic (5) Rheumatoid arthritis Current Visit: Yes Code(s): M06.9 - RHEUMATOID ARTHRITIS, UNSPECIFIED Status : Chronic (6) Sjogrens syndrome Current Visit: Yes Code(s): M35.00 - SICCA SYNDROME, UNSPECIFIED Status: Chronic - Time Time: 50% of the time was spent in coordination of care (as documented) at patient's floor/unit and/or counseling patient. Time with Patient: greater than 50 minutes - Plan Plan: This is a 68 yo F being admitted for acute hypoxic respiratory failure 2/2 unspecified pneumonia . He has a pertinent history including: RA, shogrens, asthma, osteopenia, htn Consults: pulm BUSINESS INTEGRATION MANAGER () - Sedation: none - AxOx3 Resp (acute hypoxic resp failure, viral vs bacterial pneumonia, asthma) - CXR shows bilateral pulm congestion, possible RLL PNA - coarse breath sounds throughout - cont duonebs - cont home prednisone 5mg CV (tachycardic) - Pressors: none - improved after fluids - states had normal echo >1 year ago at [facility] heart, consider echo - trop 0.028 GI () - regular diet - zofran PRN /Renal () - cr 1.06 Infection (Sepsis 2/2 pneumonia, chronic immunosupression 2/2 RA) - vanc/cefepime/azithro - WBC 9.2, Lactic 2.7 -> 2.8 trend - bcx pending - flu neg, resp viral panel ordered Endo (possible adrenal insufficiency) - on chronic steroids, pred 5mg - recent stress dose in june - check AM cortisol Lines/Tubes: none Code status: full PPx: lovenox Dispo: >[address] Bridges's addendum Pt seen and examined in full. Records reviewed. X-rays reviewed. She is a 68 yo female who is immunocompromised, on chronic low-dose prednisone and intermittent Remicaid. The patient presents with febrile illness suggestive of bronchopneumonia, although x-ray is very unimpressive. She is better on broad spectrum IV abx. We will continue IVF, abx, nebs, and steroids. Antihypertensives are being temporarily held due to transient hypotension last night. Dr. Alanis will assume care tomorrow. Agree with A/P above. 50 minutes time. Of that >50% spent with patient and on unit.
--- NOTE | 2018-09-09 08:35 | RAD ---
SINGLE VIEW OF THE CHEST: COMPARISON: 02/22/2018 and 07/01/2018. HISTORY: Fever and congestion. FINDINGS: A single view of the chest shows a cardiomediastinal silhouette which is upper limits of normal in si ze. There are subtle veil-like opacities in the inferior aspect of both thorax which may represent b ilateral small pleural effusions. IMPRESSION: Small bilateral pleural effusions. POS: [facility]
[2018-09-09] MEDS ORDERED: Azelastine 137 MCG/Spray 30 ML NS SCH (09:00)
[2018-09-09] MEDS ORDERED: Enoxaparin Sodium 30 MG/0.3 ML SYRINGE SC SCH (09:00)
[2018-09-09] MEDS ORDERED: Cholecalciferol (Vitamin D3) 400 UNITS TAB PO SCH (09:00)
[2018-09-09] MEDS ORDERED: Non-Formulary Item 1 EACH (Multivit-Min/Fa/Lycopene/Lut [Centrum Silver] 1 TABLET) PO SCH (09:00)
[2018-09-09] MEDS ORDERED: Azithromycin 500 MG in Sodium Chloride 0.9% 250 ML 250 ML IVPB SCH (09:00)
[2018-09-09] MEDS ORDERED: cycloSPORINE 0.05% Ophthalmic Droperette EA EYE SCH (09:00)
--- NOTE | 2018-09-09 09:27 | RAD ---
CHEST ONE VIEW: History: Follow up. Comparison: Same day. FINDINGS: There is scarring in the left lung base. Small right effusion. Right basilar airspace opacity. No pne umothorax. Cardiac silhouette and mediastinal contours are similar. IMPRESSION: Similar examination of the chest, small right effusion and right basilar opacity may reflect underlyi ng pneumonia or aspiration. POS: [facility]
[2018-09-09] MEDS: 1/2 NS w/KCL 20 mEq 1,000 ML IV SCH ×2 (09:51→18:01)
[2018-09-09] MEDS: Calcium Carbonate 600 MG TAB PO SCH ×2 (09:52→20:58)
[2018-09-09] MEDS: Enoxaparin Sodium 40 MG/0.4 ML SYRINGE SC SCH (09:52)
[2018-09-09] MEDS: predniSONE 5 MG TAB PO SCH (09:53)
[2018-09-09] MEDS: Multivitamin W/ Minerals 1 TAB PO SCH (09:53)
[2018-09-09] MEDS: Folic Acid 1 MG TAB PO SCH (09:53)
[2018-09-09] MEDS: guaiFENesin ER 600 MG TAB PO SCH ×2 (09:53→20:58)
[2018-09-09] MEDS: Pilocarpine 5 MG TAB PO SCH ×4 (09:53→20:57)
[2018-09-09] MEDS: Saccharomyces boulardii 250 MG CAP PO SCH (09:53)
[2018-09-09] MEDS: cycloSPORINE 0.05% Ophthalmic Droperette EA EYE SCH ×2 (10:07→20:59)
[2018-09-09] MEDS: Azelastine 137 MCG/Spray 30 ML NS SCH ×2 (10:08→20:56)
[2018-09-09] MEDS: Fluticasone Propionate Nasal Spray 16 gm Bottle NASAL SCH (10:09)
[2018-09-09 12:01] LABS: Magnesium 1.7 mg/dL (1.6-2.6)
[2018-09-09 12:47] LABS: RBC/HPF None Seen HPF (0-3); Squamous Epithelial 0-3 HPF (0-3); WBC/HPF None Seen HPF (0-3)
[2018-09-09 12:48] LABS: Bacteria/HPF None Seen HPF (None Seen); Hyaline Casts/LPF NONE SEEN LPF (0-3 Hyaline)
--- NOTE | 2018-09-09 13:01 | HP ---
PRIMARY CARE PHYSICIAN: Dr. Maycol [place]. REASON FOR ADMISSION: Sepsis, community-acquired pneumonia. HISTORY OF PRESENT ILLNESS: A 68-year-old female, who has underlying history of rheumatoid arthritis and Sjogren syndrome as well as asthma. She is on chronic immunosuppressive therapy with methotrexate, prednisone and Remicade. The patient presented to [facility] Emergency Room with complaint of increasing nasal congestion, cough, congestion for about a week. She was having on and off initially low-grade fever and that was progressed to 103 fever at home. She was feeling weak. She was wheezing at home and she was having excessive amount of cough as well as pleuritic discomfort and that is why she was evaluated at [facility] Emergency Room. At that time patient was febrile with temperature 102.1, pulse 130. She was meeting sepsis criteria. In the emergency room, her blood pressure dropped to 57/39, which responded to IV fluid. The patient was admitted to [facility]. The patient received a significant amount of IV fluid as well as empiric antibiotic therapy with cefepime, vancomycin and azithromycin. The patient was also given DuoNeb therapy and she was transferred to our hospital for higher level of care. This patient reports that she was lately having substernal burning discomfort and that is why she saw Dr. Freeman, cardiologists and she had outpatient basis stress test, but she does not know the results. She does have chronic right bundle- branch block. PAST MEDICAL HISTORY: Rheumatoid arthritis, Sjogren syndrome, immunosuppressive status, macular degeneration, asthma, osteopenia, hypertension, gastroesophageal reflux disease, chronic insomnia, osteoporosis/osteopenia. PAST SURGICAL HISTORY: Laminectomy x2 with some spinal fusion, T11-L3, cholecystectomy, hysterectomy, carpal tunnel surgery. PAST PSYCHIATRIC HISTORY: Reviewed and negative. FAMILY HISTORY: Father had heart problem. Mother had COPD. ALLERGIES: GABAPENTIN, LEVOFLOXACIN, PREGABALIN. CURRENT HOME MEDICATION: 1. Albuterol inhaler nebulization daily p.r.n. 2. Imuran 100 mg daily. 3. Azelastine one nasal spray daily. 4. Calcium carbonate one tablet b.i.d. 5. Atacand 8 mg p.o. daily. 6. Vitamin D3 2000 units p.o. daily. 7. Ciclesonide inhalation daily. 8. Dexilant 60 mg daily. 9. Cardizem CD 120 mg daily. 10. Estrace vaginal 2 times per week. 11. Lunesta 3 mg p.o. at bedtime. 12. Flonase nasal spray daily. 13. Folic acid 1 mg daily. 14. Perforomist 20 mcg inhalation daily. 15. Hydrochlorothiazide 12.5 mg daily. 16. Infliximab every 3 weeks. 17. Methotrexate every week. 18. Mirabegron 25 mg p.o. daily. 19. Multivitamin one tablet p.o. daily. 20. Pilocarpine 15 mg q.i.d. 21. Prednisone 5 mg daily. 22. Trazodone 100 mg p.o. at bedtime. 23. Mucinex 600 mg twice daily. 24. Singulair 10 mg daily. EMERGENCY ROOM COURSE: The patient has received vancomycin, cefepime, azithromycin, potassium chloride, DuoNeb therapy x2, 4 L IV fluid, ibuprofen 800 mg. REVIEW OF SYSTEMS: CONSTITUTIONAL: Negative for weight loss or gain, ability to conduct usual activities. SKIN: Negative for rash, itching. EYES: Negative for double vision, pain. ENT/MOUTH: Negative for nose bleeding, neck stiffness, pain, tenderness. CARDIOVASCULAR: Negative for palpitations, dyspnea on exertion, orthopnea. RESPIRATORY: Negative for shortness of breath, wheezing, cough, hemoptysis, fever or night sweats. GASTROINTESTINAL: Negative for poor appetite, abdominal pain, heartburn, nausea , vomiting, constipation, or diarrhea. GENITOURINARY: Negative for urgency, frequency, dysuria, nocturia. MUSCULOSKELETAL: Negative for pain, swelling. NEUROLOGIC/PSYCHIATRIC: Negative for anxiety, depression. ALLERGY/IMMUNOLOGIC: Negative for skin rash, bleeding tendency. See my HPI for pertinent positives and negatives. All other review of systems reviewed and negative except as mentioned in HPI. SOCIAL HISTORY: Patient is , no h/o tobacco, alcohol or drug abuse. PHYSICAL EXAMINATION: VITAL SIGNS: On arrival, blood pressure lowest at the emergency room 57/39, pulse of 125, respiratory rate 20, temperature 102.1, and saturation 97% on room air, weight 94.3 kg. Currently, the patient blood pressure and pulse has been improved and she is afebrile. GENERAL: The patient is currently alert, awake. No obvious acute distress. HEENT: Head; normocephalic, atraumatic. Eyes; pupils round, reactive to light. Extraocular muscle intact. No nystagmus. ENT; oropharynx within normal limits. Moist mucous membranes. No oral lesion. No pharyngeal erythema. No exudate. NECK: Supple. No JVD. No thyromegaly. No carotid bruit. LUNGS: Bilateral end-expiratory wheezing. Few basilar rales noted. Air entry reduced at bases. CARDIAC: S1, S2. Regular without any significant murmur. No gallop. No rub. ABDOMEN: Soft. Bowel sounds present. Nontender. Nondistended. No organomegaly. No mass. No suprapubic tenderness. BACK: Unremarkable. No CVA tenderness. EXTREMITIES: Upper extremities passive movement of all joints are normal. Lower extremity, no edema. Good distal pulsation. SKIN: No skin rash. HEMATOLOGICAL: No lymphadenopathy. PSYCHIATRIC: Normal affect. SIGNIFICANT LABORATORY DATA: EKG showing right bundle-branch block pattern. Chest x-ray showing bibasilar effusion, bibasilar atelectasis versus infiltration. CBC: WBC 9.2, hemoglobin 13.7 platelet 167 with bandemia. BMP: Sodium 143, potassium 3.1, chloride 105, carbon dioxide 25, BUN 14, creatinine 1.06, glucose 113, calcium 8.3. LFT: AST 18, ALT 17, alkaline phosphatase 57, albumin 3.8. Troponin 0.028. Lactic acid 2.8. ASSESSMENT AND PLAN: 1. Sepsis. The patient has bandemia, hypotension, lactic acidosis, tachycardia , and source of infection is likely community-acquired pneumonia. The patient's sepsis has been improved after treating with IV fluid in the emergency room, as well as while in intermediate care unit. At this point patient is medically stable for transfer to medical floor. 2. Community-acquired bacterial pneumonia. This patient does have underlying atelectasis/infiltration in the base and she does have some rales. In the appropriate clinical setting, the patient most likely has early pneumonia. She is immunocompromised and that is why she will need a broad-spectrum antibiotic therapy with cefepime, azithromycin and vancomycin. 3. Lactic acidosis, likely due to sepsis. We will repeat lactic acid level tomorrow. We will continue IV fluid. 4. Hypokalemia. We will replace potassium with IV fluid and we will repeat BMP tomorrow. 5. Immunosuppressive status. The patient is due for methotrexate therapy tomorrow and patient will continue Remicade therapy after discharge. We will continue prednisone 5 mg p.o. daily as patient is on chronic steroid therapy and patient has low blood pressure. We will check random cortisol level. 6. Sepsis associated hypotension. We will check random cortisol level. We will continue prednisone 5 mg p.o. daily. 7. Asthma with asthmatic bronchitis. Continue DuoNeb therapy, Dulera 2 puff inhalation b.i.d. 8. Gastroesophageal reflux disease. We will continue Pepcid 20 mg p.o. b.i.d. 9. Sjogren syndrome. We will continue patient's home medication for this disorder. 10. Hypertension, but currently low blood pressure and that is why we will hold on Atacand therapy. 11. Deep venous thrombosis prophylaxis. We will continue Lovenox 40 mg subcutaneously daily. 12. Gastrointestinal prophylaxis, Protonix 40 mg p.o. daily. CODE STATUS: The patient is full code. The patient's is surrogate decision maker. DISPOSITION PLAN: Based on clinical course we are expecting the patient's stay in hospital more than 2 midnights. Plan of care discussed with the patient and family member at bedside. Job ID: [id number] [facility]
[2018-09-09] MEDS: Cefepime 2 GM in Sodium Chloride 0.9% 100 ML IVPB SCH (13:28)
[2018-09-09] MEDS: Arformoterol 15 MCG/2 ML NEB NEB SCH (19:12)
[2018-09-09] MEDS: Budesonide 0.5 MG/2 ML NEB INH SCH (19:15)
[2018-09-09] MEDS: Montelukast Sodium 10 mg Tablet PO SCH (20:58)
[2018-09-09] MEDS: traZODone HCl 50 MG TAB PO SCH (20:58)
[2018-09-09] MEDS ORDERED: Eszopiclone [Lunesta] 3 MG PO SCH (21:00)
[2018-09-09] MEDS ORDERED: Non-Formulary Item 1 EACH (Eszopiclone [Lunesta] 3 MG) PO SCH (21:00)
[2018-09-09] MEDS: Zolpidem Tartrate 5 MG TAB PO SCH (21:58)
[2018-09-10] MEDS ORDERED: Azithromycin 500 MG in Sodium Chloride 0.9% 250 ML 250 ML IVPB SCH (02:00)
[2018-09-10] MEDS: Cefepime 2 GM in Sodium Chloride 0.9% 100 ML IVPB SCH ×2 (02:14→13:38)
[2018-09-10] MEDS: Azithromycin 500 MG in Sodium Chloride 0.9% 250 ML 250 ML IVPB SCH (03:14)
[2018-09-10] MEDS: Diabetic Tussin 200 MG/10 ML UDCUP PO PRN ×3 (03:21→23:37)
[2018-09-10] MEDS: 1/2 NS w/KCL 20 mEq 1,000 ML IV SCH ×3 (03:31→17:54)
[2018-09-10 06:22] LABS: Anion Gap 13 mmol/L (10-20); BUN (Urea Nitrogen) 11 mg/dL (9.8-20.1); Calc. Creatinine Clearance 105 mL/min (70-130); Calcium 8.6 mg/dL (7.8-10.44); Carbon Dioxide 18 mmol/L (23-31); Chloride 113 mmol/L (98-107); Estimated GFR-MDRD 77; Glucose 88 mg/dL (80-115); Potassium 4.1 mmol/L (3.5-5.1); Sodium 140 mmol/L (136-145)
[2018-09-10] MEDS: Vancomycin HCl 750 MG in Sodium Chloride 0.9% 250 ML 250 ML IVPB SCH ×2 (06:23→17:53)
[2018-09-10 06:38] LABS: #Basophils 0.1 thou/uL (0.0-0.2); #Eosinphils 0.2 thou/uL (0.0-0.7); #Lymphocytes 1.5 thou/uL (1.20-3.40); #Monocytes 0.9 thou/uL (0.11-0.59); %Basophils 0.4 % (0.0-1.0); %Eosinophils 1.4 % (0.0-10.0); %Lymphocytes 12.1 % (21.0-51.0); %Monocytes 7.4 % (0.0-10.0); %Neutrophils 78.7 % (42.0-75.0); Hemoglobin 11.2 g/dL (12.0-16.0); Mean Corpuscular HGB CONC 32.2 g/dL (32.0-36.0); Mean Corpuscular Hemoglobin 33.8 pg (27.0-31.0); Mean Platelet Volume 7.7 fL (7.4-10.4); Platelet Count 156 thou/uL (130-400); RBC Distribution Width 13.9 % (11.5-14.5); Red Blood Cell (RBC) Count 3.31 mill/uL (4.20-5.40); White Blood Cell (WBC) Count 12.7 thou/uL (4.8-10.8)
[2018-09-10] MEDS: Budesonide 0.5 MG/2 ML NEB INH SCH ×2 (06:49→18:42)
[2018-09-10] MEDS: Arformoterol 15 MCG/2 ML NEB NEB SCH ×2 (06:50→18:42)
[2018-09-10] MEDS: Enoxaparin Sodium 40 MG/0.4 ML SYRINGE SC SCH (08:59)
[2018-09-10] MEDS: Pilocarpine 5 MG TAB PO SCH ×4 (08:59→20:40)
[2018-09-10] MEDS: Calcium Carbonate 600 MG TAB PO SCH ×2 (09:00→20:41)
[2018-09-10] MEDS: Saccharomyces boulardii 250 MG CAP PO SCH (09:01)
[2018-09-10] MEDS: guaiFENesin ER 600 MG TAB PO SCH ×2 (09:01→20:43)
[2018-09-10] MEDS: Multivitamin W/ Minerals 1 TAB PO SCH (09:01)
[2018-09-10] MEDS: predniSONE 5 MG TAB PO SCH (09:01)
[2018-09-10] MEDS: Folic Acid 1 MG TAB PO SCH (09:02)
[2018-09-10] MEDS: Azelastine 137 MCG/Spray 30 ML NS SCH ×2 (09:02→20:43)
[2018-09-10] MEDS: Fluticasone Propionate Nasal Spray 16 gm Bottle NASAL SCH (09:04)
[2018-09-10] MEDS: cycloSPORINE 0.05% Ophthalmic Droperette EA EYE SCH ×2 (09:05→21:22)
[2018-09-10] MEDS ORDERED: Acetaminophen 325 MG TAB PO PRN (09:17)
--- NOTE | 2018-09-10 11:50 | PDOC.PN ---
- Subjective Encounter Start Date: 09/10/18 Encounter Start Time: 09:45 -: old records requested/rev Patient seen and examined. No new complaints. No overnight events - Objective Resuscitation Status - Order Detail: 09/09/18 04:47 Resuscitation Status Routine Resuscitation Status: FULL: Full Resuscitation MAR Reviewed: Yes Vital Signs & Weight: Vital Signs (12 hours) Temp Pulse Resp BP Pulse Ox 09/10/18 10:37 91 16 94 L 09/10/18 07:16 98 09/10/18 07:15 97 20 133/78 96 09/10/18 06:49 98 22 H 98 09/10/18 03:39 98.6 F 95 20 133/88 96 09/10/18 00:41 95 09/10/18 00:00 96 09/09/18 23:51 98.9 F Weight Weight 202 lb 6.4 oz Most Recent Monitor Data Heart Rate from ECG 97 NIBP 160/94 NIBP BP-Mean 116 Respiration from ECG 20 SpO2 92 I&O: 09/09/18 09/10/18 09/11/18 06:59 06:59 06:59 Intake Total 630 1870 Output Total 100 1520 Balance 530 350 Result Diagrams: 09/10/18 05:37 09/10/18 05:37 EKG Reviewed by me: Yes Phys Exam - Physical Examination Constitutional: NAD HEENT: PERRLA, moist MMs, sclera anicteric Neck: no JVD, supple Respiratory: no wheezing, no rales, no rhonchi Cardiovascular: RRR, no significant murmur, no rub Gastrointestinal: soft, non-tender, no distention, positive bowel sounds Musculoskeletal: no edema, pulses present Neurological: non-focal, normal sensation, moves all 4 limbs Lymphatic: no nodes Psychiatric: normal affect, A&O x 3 Skin: no rash, normal turgor Dx/Plan (1) Elevated brain natriuretic peptide (BNP) level Code(s): R79.89 - OTHER SPECIFIED ABNORMAL FINDINGS OF BLOOD CHEMISTRY Status : Acute (2) Community acquired bacterial pneumonia Code(s): J15.9 - UNSPECIFIED BACTERIAL PNEUMONIA Status: Acute (3) Hypokalemia Code(s): E87.6 - HYPOKALEMIA Status: Acute (4) Lactic acidosis Code(s): E87.2 - ACIDOSIS Status: Acute (5) Sepsis associated hypotension Code(s): A41.9 - SEPSIS, UNSPECIFIED ORGANISM; I95.9 - HYPOTENSION, UNSPECIFIED Status: Acute (6) Asthma Code(s): J45.909 - UNSPECIFIED ASTHMA, UNCOMPLICATED Status: Chronic Comment : No evidence of wheezing today. (7) HTN (hypertension) Code(s): I10 - ESSENTIAL (PRIMARY) HYPERTENSION Status: Chronic (8) Immunosuppression due to drug therapy Code(s): Z79.899 - OTHER FAMILY CONSULTANT (CURRENT) DRUG THERAPY Status: Chronic Comment: chronic suppression due to RA, continue maintenance therapy (9) Obesity (BMI 30.0-34.9) Code(s): E66.9 - OBESITY, UNSPECIFIED Status: Chronic (10) Rheumatoid arthritis Code(s): M06.9 - RHEUMATOID ARTHRITIS, UNSPECIFIED Status: Chronic Comment: Methotrexate and azothioprine held. Also on Remicade infusions. (11) Sjogrens syndrome Code(s): M35.00 - SICCA SYNDROME, UNSPECIFIED Status: Chronic (12) Spinal stenosis of lumbar region Code(s): M48.06 - SPINAL STENOSIS, LUMBAR REGION * DO NOT USE * Status: Chronic - Plan cont current plan of care, plan discussed w/ family, continue antibiotics, respiratory therapy * echo done today * transfer to floor * continue current empiric antibiotics * follow culture * discussed with * wean off oxygen as tolerated. * medication reviewed as below * symptomatic treatment Review of Systems - Review of Systems ENT: negative: Ear Pain, Ear Discharge, Nose Pain, Nose Discharge, Nose Congestion, Mouth Pain, Mouth Swelling, Throat Pain, Throat Swelling, Other Respiratory: negative: Cough, Dry, Shortness of Breath, Hemoptysis, SOB with Excertion, Pleuritic Pain, Sputum, Wheezing Cardiovascular: negative: chest pain, palpitations, orthopnea, paroxysmal nocturnal dyspnea, edema, light headedness, other Gastrointestinal: negative: Nausea, Vomiting, Abdominal Pain, Diarrhea, Constipation, Melena, Hematochezia, Other Genitourinary: negative: Dysuria, Frequency, Incontinence, Hematuria, Retention , Other Musculoskeletal: negative: Neck Pain, Shoulder Pain, Arm Pain, Back Pain, Hand Pain, Leg Pain, Foot Pain, Other Skin: negative: Rash, Lesions, Cedric, Bruising, Other - Medications/Allergies Allergies/Adverse Reactions: Allergies Allergy/AdvReac Type Severity Reaction Status Date / Time gabapentin Allergy Verified 04/08/14 08:50 levofloxacin [From Levaquin] Allergy Verified 04/08/14 08:50 pregabalin [From Lyrica] Allergy Verified 04/08/14 08:50 TAPE ADHESIVE Allergy Uncoded 04/16/14 17:35 Medications: Current Medications Acetaminophen (Tylenol) 650 mg PO Q6H PRN PRN Reason: Fever>101/(Mi/Mod/Sev) Pain Last Admin: 09/10/18 09:58 Dose: 650 mg Albuterol/Ipratropium (Duoneb) 3 ml NEB Q4H PRN PRN Reason: SOB &/or Wheezing Last Admin: 09/10/18 10:37 Dose: 3 ml Arformoterol Tartrate (Brovana) 15 mcg NEB BID-RT [facility] Last Admin: 09/10/18 06:50 Dose: 15 mcg Artificial Tears (Tears Naturale) 2 drop EA EYE PRN PRN PRN Reason: Dry Eyes Azelastine HCl (Azelastine) 0 ml NS BID [facility] Last Admin: 09/10/18 09:02 Dose: 1 spr Bisacodyl (Dulcolax) 10 mg PO DAILYPRN PRN PRN Reason: Constipation Budesonide (Pulmicort Neb Solution) 0.5 mg INH BID-RT [facility] Last Admin: 09/10/18 06:49 Dose: 0.5 mg Calcium Carbonate (Caltrate) 600 mg PO BID [facility] Last Admin: 09/10/18 09:00 Dose: 600 mg Cholecalciferol (Vitamin D3) 1,000 units PO DAILY [facility] Last Admin: 09/10/18 09:01 Dose: 1,000 units Cyclosporine (Restasis) 0 ml EA EYE BID [facility] Last Admin: 09/10/18 09:05 Dose: Not Given Enoxaparin Sodium (Lovenox) 40 mg SC 0900 [facility] Last Admin: 09/10/18 08:59 Dose: 40 mg Fluticasone Propionate (Flonase Nasal [place]) 0 gm NASAL DAILY [facility] Last Admin: 09/10/18 09:04 Dose: Not Given Folic Acid (Folvite) 1 mg PO DAILY [facility] Last Admin: 09/10/18 09:02 Dose: 1 mg Guaifenesin (Mucinex) 600 mg PO Q12HR [facility] Last Admin: 09/10/18 09:01 Dose: 600 mg Guaifenesin (Robitussin Sf) 200 mg PO Q4H PRN PRN Reason: Cough Last Admin: 09/10/18 09:00 Dose: 200 mg Hydralazine HCl (Apresoline) 10 mg SLOW IVP Q4H PRN PRN Reason: SBP > 180 and HR < 70 Cefepime HCl 2 gm/ Sodium (Chloride) 100 mls @ 200 mls/hr IVPB 0200,1400 [facility] Last Admin: 09/10/18 02:14 Dose: 100 mls Vancomycin HCl 750 mg/ Sodium (Chloride) 250 mls @ 250 mls/hr IVPB 0600,1800 [facility] Last Admin: 09/10/18 06:23 Dose: 250 mls Potassium Chloride/Sodium Chloride (1/2 Ns W/Kcl 20 Meq) 1,000 mls @ 125 mls/ hr IV .Q8H [facility] Last Admin: 09/10/18 03:31 Dose: 1,000 mls Azithromycin 500 mg/ Sodium (Chloride) 250 mls @ 250 mls/hr IVPB Q24HR [facility] Last Admin: 09/10/18 03:14 Dose: 250 mls Iron/Minerals/Multivitamins (Theragran M) 1 tab PO DAILY [facility] Last Admin: 09/10/18 09:01 Dose: 1 tab Loperamide HCl (Imodium) 2 mg PO PRN PRN PRN Reason: Diarrhea/Loose Stools Loratadine (Claritin) 10 mg PO DAILYPRN PRN PRN Reason: Sinus Symptoms Mineral Oil/White Petrolatum (Eucerin Cream) 0 gm TOP BIDPRN PRN PRN Reason: Dry Skin Mirabegron (Myrbetriq Er) 25 mg PO DAILY [facility] Last Admin: 09/10/18 09:00 Dose: 25 mg Miscellaneous Medication (Pharmacy To Dose) 1 each IVPB ONE PRN PRN Reason: DOSING Stop: 10/09/18 05:15 Montelukast Sodium (Singulair) 10 mg PO QPM [facility] Last Admin: 09/09/18 20:58 Dose: 10 mg Pantoprazole Sodium (Protonix) 40 mg PO DAILY [facility] Last Admin: 09/10/18 09:02 Dose: 40 mg Pilocarpine HCl (Salagen) 15 mg PO QID [facility] Last Admin: 09/10/18 08:59 Dose: 15 mg Prednisone (Prednisone) 5 mg PO DAILY [facility] Last Admin: 09/10/18 09:01 Dose: 5 mg Saccharomyces Boulardii (Florastor) 250 mg PO DAILY [facility] Last Admin: 09/10/18 09:01 Dose: 250 mg Senna/Docusate Sodium (Senokot S) 2 tab PO BID PRN PRN Reason: Constipation Sodium Chloride ([place] Nasal [place] 0.65%) 0 ml EA NARE QIDPRN PRN PRN Reason: Nasal Congestion Sodium Chloride (Flush - Normal Saline) 10 ml IVF Q12HR [facility] Last Admin: 09/10/18 09:05 Dose: 10 ml Sodium Chloride (Flush - Normal Saline) 10 ml IVF PRN PRN PRN Reason: Saline Flush Last Admin: 09/10/18 03:19 Dose: 10 ml Throat Lozenges (Cepastat Lozenges) 1 yodit PO Q2H PRN PRN Reason: Sore Throat Trazodone HCl (Desyrel) 100 mg PO [facility] Last Admin: 09/09/18 20:58 Dose: 100 mg Zolpidem Tartrate (Ambien) 5 mg PO [facility] Last Admin: 09/09/18 21:58 Dose: 5 mg
[2018-09-10 17:32] LABS: Vancomycin, Trough 9.5 ug/mL
[2018-09-10] MEDS: methylPREDNISolone Sod Succ 40 MG VIAL IVP SCH ×2 (17:52→23:35)
--- NOTE | 2018-09-10 19:38 | PRG ---
DATE OF SERVICE: 09/10/2018 SUBJECTIVE: Ms. Grijalva's events have been reviewed. She says she feels better than she felt when she came in. She is not in distress, talking in complete sentences. OBJECTIVE: VITAL SIGNS: She is afebrile, heart rate 80, respiratory rate 18, oximetry is 93% on room air, blood pressure 146/88. LUNGS: Remarkable for diffuse wheezes. HEART: Regular rhythm. ABDOMEN: Soft. HEENT: She also is having considerable sinus drainage. IMPRESSION: 1. Asthmatic bronchitis. She wanted to know if these events were related to the Humira. It is really impossible to say. She may be having these respiratory events even if she was not on Humira. 2. Echocardiogram was done, which showed diastolic dysfunction. I would explain her elevated BNP. PLAN: I have recommended adding IV steroids with her bronchospasm. Her Humira dose is next Sunday and this could be held since she will be tapering off prednisone. Add nasal ipratropium to see if this helps with her sinus drainage. I will be happy to follow the other physicians caring for and answered all of her questions and her 's questions. Job ID: [id number]
[2018-09-10] MEDS: Montelukast Sodium 10 mg Tablet PO SCH (20:42)
[2018-09-10] MEDS: traZODone HCl 50 MG TAB PO SCH (20:43)
[2018-09-10] MEDS: Zolpidem Tartrate 5 MG TAB PO SCH (20:43)
[2018-09-11] MEDS: Cefepime 2 GM in Sodium Chloride 0.9% 100 ML IVPB SCH (01:30)
[2018-09-11] MEDS: Azithromycin 500 MG in Sodium Chloride 0.9% 250 ML 250 ML IVPB SCH (02:29)
[2018-09-11] MEDS: methylPREDNISolone Sod Succ 40 MG VIAL IVP SCH ×3 (04:40→17:05)
[2018-09-11] MEDS ORDERED: Vancomycin HCl 1 GM in Premix Bag 1 BAG IVPB SCH (06:00)
[2018-09-11] MEDS: Budesonide 0.5 MG/2 ML NEB INH SCH ×2 (07:12→18:48)
[2018-09-11] MEDS: Arformoterol 15 MCG/2 ML NEB NEB SCH ×2 (07:14→18:49)
[2018-09-11 07:57] LABS: #Lymphocytes 0.5 thou/uL (1.20-3.40); #Monocytes 0.2 thou/uL (0.11-0.59); %Eosinophils 0.1 % (0.0-10.0); %Lymphocytes 4.9 % (21.0-51.0); %Monocytes 2.3 % (0.0-10.0); %Neutrophils 92.7 % (42.0-75.0); Hemoglobin 11.4 g/dL (12.0-16.0); Mean Corpuscular HGB CONC 33.2 g/dL (32.0-36.0); Mean Corpuscular Hemoglobin 34.2 pg (27.0-31.0); Mean Platelet Volume 7.8 fL (7.4-10.4); Platelet Count 175 thou/uL (130-400); RBC Distribution Width 13.5 % (11.5-14.5); Red Blood Cell (RBC) Count 3.34 mill/uL (4.20-5.40); White Blood Cell (WBC) Count 9.7 thou/uL (4.8-10.8)
[2018-09-11 08:10] LABS: Anion Gap 14 mmol/L (10-20); BUN (Urea Nitrogen) 11 mg/dL (9.8-20.1); Calc. Creatinine Clearance 95 mL/min (70-130); Calcium 9.6 mg/dL (7.8-10.44); Carbon Dioxide 20 mmol/L (23-31); Chloride 111 mmol/L (98-107); Estimated GFR-MDRD 69; Glucose 117 mg/dL (80-115); Sodium 141 mmol/L (136-145)
[2018-09-11] MEDS: Calcium Carbonate 600 MG TAB PO SCH ×2 (08:45→20:14)
[2018-09-11] MEDS: Multivitamin W/ Minerals 1 TAB PO SCH (08:45)
[2018-09-11] MEDS: guaiFENesin ER 600 MG TAB PO SCH ×2 (08:45→20:15)
[2018-09-11] MEDS: predniSONE 5 MG TAB PO SCH (08:45)
[2018-09-11] MEDS: Saccharomyces boulardii 250 MG CAP PO SCH (08:45)
[2018-09-11] MEDS: Folic Acid 1 MG TAB PO SCH (08:45)
[2018-09-11] MEDS: Azelastine 137 MCG/Spray 30 ML NS SCH ×2 (08:47→20:17)
[2018-09-11] MEDS: Enoxaparin Sodium 40 MG/0.4 ML SYRINGE SC SCH (08:48)
[2018-09-11] MEDS: Fluticasone Propionate Nasal Spray 16 gm Bottle NASAL SCH (08:48)
[2018-09-11] MEDS: Pilocarpine 5 MG TAB PO SCH ×4 (09:00→20:21)
--- NOTE | 2018-09-11 11:33 | PDOC.PN ---
- Subjective Encounter Start Date: 09/11/18 Encounter Start Time: 08:15 this morning she is doing good, she is on room air, has very mild cough, feels steroid helped more, no fever - Objective Resuscitation Status - Order Detail: 09/09/18 04:47 Resuscitation Status Routine Resuscitation Status: FULL: Full Resuscitation MAR Reviewed: Yes Vital Signs & Weight: Vital Signs (12 hours) Temp Pulse Resp BP BP Pulse Ox 09/11/18 08:54 94 L 09/11/18 08:00 97.3 F L 92 20 157/85 H 94 L 09/11/18 07:16 96 09/11/18 07:12 55 L 16 96 09/11/18 04:00 97.3 F L 72 20 164/87 H 95 09/11/18 00:00 98.0 F 89 20 161/65 H 94 L Weight Weight 202 lb 6.4 oz Most Recent Monitor Data Heart Rate from ECG 88 NIBP 154/83 NIBP BP-Mean 106 Respiration from ECG 18 SpO2 95 I&O: 09/10/18 09/11/18 09/12/18 06:59 06:59 06:59 Intake Total 1870 Output Total 1520 Balance 350 Result Diagrams: 09/11/18 07:15 09/11/18 07:15 Phys Exam - Physical Examination Constitutional: NAD HEENT: PERRLA, moist MMs, sclera anicteric Neck: no JVD, supple Respiratory: no wheezing, no rales, no rhonchi Cardiovascular: RRR, no significant murmur, no rub Gastrointestinal: soft, non-tender, no distention, positive bowel sounds Musculoskeletal: no edema, pulses present Neurological: non-focal, normal sensation, moves all 4 limbs Lymphatic: no nodes Psychiatric: normal affect, A&O x 3 Skin: no rash, normal turgor Dx/Plan (1) Elevated brain natriuretic peptide (BNP) level Code(s): R79.89 - OTHER SPECIFIED ABNORMAL FINDINGS OF BLOOD CHEMISTRY Status : Acute (2) Community acquired bacterial pneumonia Code(s): J15.9 - UNSPECIFIED BACTERIAL PNEUMONIA Status: Acute (3) Hypokalemia Code(s): E87.6 - HYPOKALEMIA Status: Acute (4) Lactic acidosis Code(s): E87.2 - ACIDOSIS Status: Acute (5) Sepsis associated hypotension Code(s): A41.9 - SEPSIS, UNSPECIFIED ORGANISM; I95.9 - HYPOTENSION, UNSPECIFIED Status: Acute (6) Asthma Code(s): J45.909 - UNSPECIFIED ASTHMA, UNCOMPLICATED Status: Chronic Comment : No evidence of wheezing today. (7) HTN (hypertension) Code(s): I10 - ESSENTIAL (PRIMARY) HYPERTENSION Status: Chronic (8) Immunosuppression due to drug therapy Code(s): Z79.899 - OTHER REPOSSESSION AGENT (CURRENT) DRUG THERAPY Status: Chronic Comment: chronic suppression due to RA, continue maintenance therapy (9) Obesity (BMI 30.0-34.9) Code(s): E66.9 - OBESITY, UNSPECIFIED Status: Chronic (10) Rheumatoid arthritis Code(s): M06.9 - RHEUMATOID ARTHRITIS, UNSPECIFIED Status: Chronic Comment: Methotrexate and azothioprine held. Also on Remicade infusions. (11) Sjogrens syndrome Code(s): M35.00 - SICCA SYNDROME, UNSPECIFIED Status: Chronic (12) Spinal stenosis of lumbar region Code(s): M48.06 - SPINAL STENOSIS, LUMBAR REGION * DO NOT USE * Status: Chronic (13) Diastolic dysfunction Code(s): I51.89 - OTHER ILL-DEFINED HEART DISEASES Status: Acute - Plan cont current plan of care, plan discussed w/ family, continue antibiotics, respiratory therapy * medication reviewed as below * symptomatic treatment * will dc vancomycin * continue cefepime, azithromycin and solumedrol * discussed with . Review of Systems - Review of Systems ENT: negative: Ear Pain, Ear Discharge, Nose Pain, Nose Discharge, Nose Congestion, Mouth Pain, Mouth Swelling, Throat Pain, Throat Swelling, Other Respiratory: negative: Cough, Dry, Shortness of Breath, Hemoptysis, SOB with Excertion, Pleuritic Pain, Sputum, Wheezing Cardiovascular: negative: chest pain, palpitations, orthopnea, paroxysmal nocturnal dyspnea, edema, light headedness, other Gastrointestinal: negative: Nausea, Vomiting, Abdominal Pain, Diarrhea, Constipation, Melena, Hematochezia, Other Genitourinary: negative: Dysuria, Frequency, Incontinence, Hematuria, Retention , Other Musculoskeletal: negative: Neck Pain, Shoulder Pain, Arm Pain, Back Pain, Hand Pain, Leg Pain, Foot Pain, Other - Medications/Allergies Allergies/Adverse Reactions: Allergies Allergy/AdvReac Type Severity Reaction Status Date / Time gabapentin Allergy Verified 04/08/14 08:50 levofloxacin [From Levaquin] Allergy Verified 04/08/14 08:50 pregabalin [From Lyrica] Allergy Verified 04/08/14 08:50 TAPE ADHESIVE Allergy Uncoded 04/16/14 17:35 Medications: Current Medications Acetaminophen (Tylenol) 650 mg PO Q6H PRN PRN Reason: Fever>101/(Mi/Mod/Sev) Pain Last Admin: 09/10/18 09:58 Dose: 650 mg Albuterol/Ipratropium (Duoneb) 3 ml NEB Q4H PRN PRN Reason: SOB &/or Wheezing Last Admin: 09/10/18 18:45 Dose: 3 ml Arformoterol Tartrate (Brovana) 15 mcg NEB BID-RT [facility] Last Admin: 09/11/18 07:14 Dose: 15 mcg Artificial Tears (Tears Naturale) 2 drop EA EYE PRN PRN PRN Reason: Dry Eyes Azelastine HCl (Azelastine) 0 ml NS BID [facility] Last Admin: 09/11/18 08:47 Dose: 1 spr Bisacodyl (Dulcolax) 10 mg PO DAILYPRN PRN PRN Reason: Constipation Budesonide (Pulmicort Neb Solution) 0.5 mg INH BID-RT [facility] Last Admin: 09/11/18 07:12 Dose: 0.5 mg Calcium Carbonate (Caltrate) 600 mg PO BID [facility] Last Admin: 09/11/18 08:45 Dose: 600 mg Cholecalciferol (Vitamin D3) 1,000 units PO DAILY [facility] Last Admin: 09/11/18 08:45 Dose: 1,000 units Cyclosporine (Restasis) 0 ml EA EYE BID [facility] Last Admin: 09/10/18 21:22 Dose: 0.4 ml Enoxaparin Sodium (Lovenox) 40 mg SC 0900 [facility] Last Admin: 09/11/18 08:48 Dose: 40 mg Fluticasone Propionate (Flonase Nasal [place]) 0 gm NASAL DAILY [facility] Last Admin: 09/11/18 08:48 Dose: Not Given Folic Acid (Folvite) 1 mg PO DAILY [facility] Last Admin: 09/11/18 08:45 Dose: 1 mg Guaifenesin (Mucinex) 600 mg PO Q12HR [facility] Last Admin: 09/11/18 08:45 Dose: 600 mg Guaifenesin (Robitussin Sf) 200 mg PO Q4H PRN PRN Reason: Cough Last Admin: 09/10/18 23:37 Dose: 200 mg Hydralazine HCl (Apresoline) 10 mg SLOW IVP Q4H PRN PRN Reason: SBP > 180 and HR < 70 Cefepime HCl 2 gm/ Sodium (Chloride) 100 mls @ 200 mls/hr IVPB 0200,1400 [facility] Last Admin: 09/11/18 01:30 Dose: 100 mls Azithromycin 500 mg/ Sodium (Chloride) 250 mls @ 250 mls/hr IVPB Q24HR [facility] Last Admin: 09/11/18 02:29 Dose: 250 mls Vancomycin HCl 1 gm/ Device 200 mls @ 200 mls/hr IVPB 0600,1800 [facility] Last Admin: 09/11/18 04:40 Dose: 200 mls Ipratropium [place] (Atrovent 0.06% Nasal Inhaler) 1 ml NASAL TID [facility] Iron/Minerals/Multivitamins (Theragran M) 1 tab PO DAILY [facility] Last Admin: 09/11/18 08:45 Dose: 1 tab Loperamide HCl (Imodium) 2 mg PO PRN PRN PRN Reason: Diarrhea/Loose Stools Loratadine (Claritin) 10 mg PO DAILYPRN PRN PRN Reason: Sinus Symptoms Methylprednisolone Sodium Succinate (Solu-Medrol) 20 mg IVP Q6HR [facility] Last Admin: 09/11/18 04:40 Dose: 20 mg Mineral Oil/White Petrolatum (Eucerin Cream) 0 gm TOP BIDPRN PRN PRN Reason: Dry Skin Mirabegron (Myrbetriq Er) 25 mg PO DAILY [facility] Last Admin: 09/11/18 08:49 Dose: 25 mg Miscellaneous Medication (Pharmacy To Dose) 1 each IVPB ONE PRN PRN Reason: DOSING Stop: 10/09/18 05:15 Montelukast Sodium (Singulair) 10 mg PO QPM [facility] Last Admin: 09/10/18 20:42 Dose: 10 mg Pantoprazole Sodium (Protonix) 40 mg PO DAILY [facility] Last Admin: 09/11/18 08:46 Dose: 40 mg Pilocarpine HCl (Salagen) 15 mg PO QID [facility] Last Admin: 09/10/18 20:40 Dose: 15 mg Prednisone (Prednisone) 5 mg PO DAILY [facility] Last Admin: 09/11/18 08:45 Dose: 5 mg Saccharomyces Boulardii (Florastor) 250 mg PO DAILY [facility] Last Admin: 09/11/18 08:45 Dose: 250 mg Senna/Docusate Sodium (Senokot S) 2 tab PO BID PRN PRN Reason: Constipation Sodium Chloride ([place] Nasal [place] 0.65%) 0 ml EA NARE QIDPRN PRN PRN Reason: Nasal Congestion Sodium Chloride (Flush - Normal Saline) 10 ml IVF Q12HR [facility] Last Admin: 09/10/18 20:44 Dose: 10 ml Sodium Chloride (Flush - Normal Saline) 10 ml IVF PRN PRN PRN Reason: Saline Flush Last Admin: 09/10/18 03:19 Dose: 10 ml Throat Lozenges (Cepastat Lozenges) 1 yodit PO Q2H PRN PRN Reason: Sore Throat Trazodone HCl (Desyrel) 100 mg PO [facility] Last Admin: 09/10/18 20:43 Dose: 100 mg Zolpidem Tartrate (Ambien) 5 mg PO [facility] Last Admin: 09/10/18 20:43 Dose: 5 mg
[2018-09-11] MEDS: cycloSPORINE 0.05% Ophthalmic Droperette EA EYE SCH ×2 (11:42→20:16)
[2018-09-11] MEDS: Diabetic Tussin 200 MG/10 ML UDCUP PO PRN ×3 (11:57→22:07)
[2018-09-11] MEDS: Ipratropium Bromide 0.06% Nasal Inhaler 15ml NASAL SCH ×3 (12:42→20:19)
[2018-09-11] MEDS: Amoxicillin/Potassium Clav 875 MG TAB PO SCH (20:14)
[2018-09-11] MEDS: traZODone HCl 50 MG TAB PO SCH (20:14)
[2018-09-11] MEDS: Montelukast Sodium 10 mg Tablet PO SCH (20:14)
[2018-09-11] MEDS: Zolpidem Tartrate 5 MG TAB PO SCH (20:15)
--- NOTE | 2018-09-11 21:11 | PRG ---
DATE OF SERVICE: 09/11/2018 SUBJECTIVE: Charisse Grijalva says she is feeling much better. She denies wheezing today. OBJECTIVE: VITAL SIGNS: She is afebrile. Heart rate is in the 80s, respiratory rate is 20, oximetry is 92% on room air, and blood pressure 157/83. LUNGS: Remarkably improved compared to yesterday. She has very faint wheezes. HEART: Regular rhythm. ABDOMEN: Soft and nontender. EXTREMITIES: Without edema. LABORATORY DATA: White count 9.7, hemoglobin 11.4, platelets 175. Sodium 141, potassium 4, chloride 111, bicarb 20, BUN 11, and creatinine 0.83. IMPRESSION: Asthmatic bronchitis, clinically improved with IV steroids. We will simplify her medications. Hopefully, she is a candidate for discharge tomorrow. She says she thinks she will be better at home. Job ID: [id number]
[2018-09-12] MEDS: methylPREDNISolone Sod Succ 40 MG VIAL IVP SCH (00:29)
[2018-09-12] MEDS: Budesonide 0.5 MG/2 ML NEB INH SCH (06:19)
[2018-09-12] MEDS: Arformoterol 15 MCG/2 ML NEB NEB SCH (06:21)
[2018-09-12] MEDS ORDERED: predniSONE 20 MG TAB PO SCH (09:00)
[2018-09-12] MEDS: Folic Acid 1 MG TAB PO SCH (09:58)
[2018-09-12] MEDS: Pilocarpine 5 MG TAB PO SCH (09:58)
[2018-09-12] MEDS: Saccharomyces boulardii 250 MG CAP PO SCH (09:59)
[2018-09-12] MEDS: guaiFENesin ER 600 MG TAB PO SCH (09:59)
[2018-09-12] MEDS: Multivitamin W/ Minerals 1 TAB PO SCH (09:59)
[2018-09-12] MEDS: Calcium Carbonate 600 MG TAB PO SCH (09:59)
[2018-09-12] MEDS: Amoxicillin/Potassium Clav 875 MG TAB PO SCH (09:59)
[2018-09-12] MEDS: Enoxaparin Sodium 40 MG/0.4 ML SYRINGE SC SCH (10:00)
[2018-09-12] MEDS: Azelastine 137 MCG/Spray 30 ML NS SCH (10:00)
[2018-09-12] MEDS: Ipratropium Bromide 0.06% Nasal Inhaler 15ml NASAL SCH ×2 (10:02)
[2018-09-12] MEDS: cycloSPORINE 0.05% Ophthalmic Droperette EA EYE SCH (10:03)
[2018-09-12] MEDS: Fluticasone Propionate Nasal Spray 16 gm Bottle NASAL SCH (10:03)
[2018-09-12 11:32] VITALS: BP 174/92; TEMP 98.1
--- NOTE | 2018-09-12 12:57 | DIS ---
DATE OF ADMISSION: 09/09/2018 DATE OF DISCHARGE: 09/12/2018 PRIMARY CARE PHYSICIAN: Dr. Maycol Dallas. DISCHARGE DISPOSITION: Home. PRIMARY DISCHARGE DIAGNOSES: 1. Community-acquired bacterial pneumonia. 2. Acute bronchitis. 3. Diastolic dysfunction. 4. Hypokalemia. 5. Lactic acidosis. 6. Sepsis associated hypotension. SECONDARY DISCHARGE DIAGNOSES: 1. Lumbar stenosis. 2. Sjogren syndrome. 3. Rheumatoid arthritis. 4. Obesity with body mass index 33. 5. Hypertension. 6. Chronic immunosuppression due to therapy. 7. Asthma. PRIMARY PROCEDURE/OPERATION: None. RADIOLOGICAL INVESTIGATION: Chest x-ray showed bilateral lower lobe infiltration versus atelectasis. Echocardiography showed normal EF. SIGNIFICANT LABORATORY DATA: WBC 9.7, hemoglobin 11.4, and platelets 175. Sodium 141, potassium 4.0, BUN 11, creatinine 0.83, calcium 9.6. BNP 422.5. Cortisol level 13.50. LFT normal. Cardiac enzyme negative. Urinalysis unremarkable. Blood culture negative. Urine culture negative. Influenza negative. DISCHARGE MEDICATIONS: 1. Augmentin 875 mg twice daily for 7 days. 2. Florastor 250 mg p.o. daily for 7 days. 3. Diflucan 100 mg p.o. daily p.r.n. basis to use for yeast infection if needed. 4. Brovana nebulization b.i.d. 5. Albuterol sulfate nebulization as needed. 6. Imuran 100 mg daily. 7. Azelastine nasal spray daily. 8. Calcium with vitamin D one tablet p.o. b.i.d. 9. Atacand 8 mg daily. 10. Vitamin D3 2000 units p.o. daily. 11. Ciclesonide inhalation daily. 12. Dexilant 60 mg daily. 13. Cardizem CD 120 mg daily. 14. Estrace vaginal cream as directed. 15. Lunesta 3 mg p.o. at bedtime. 16. Flonase nasal spray daily. 17. Folic acid 1 mg p.o. daily. 18. Perforomist nebulization b.i.d. 19. Hydrochlorothiazide 12.5 mg p.o. daily. 20. Remicade as directed. 21. Methotrexate as directed. 22. Mirabegron 25 mg p.o. daily. 23. Prednisone 5 mg daily. 24. Restasis ophthalmic drops b.i.d. 25. Trazodone 100 mg p.o. at bedtime. 26. Mucinex 600 mg twice daily. 27. Singulair 10 mg p.o. daily. CONTRAINDICATION: None. CODE STATUS: Full code. INPATIENT MAP AND CHART MOUNTER: Dr. Alanis was following while in hospital. TEST RESULT PENDING ON DISCHARGE: None. ALLERGIES: GABAPENTIN, LEVAQUIN, AND LYRICA. DISCHARGE PLAN: Posthospital, the patient will follow up with Dr. Alanis and Dr. Maycol Dallas as instructed. HOSPITAL COURSE: A 68-year-old female with above-mentioned medical problem, who was admitted by me on September 09, 2018. Please see my HPI for further details. The patient was having increasing cough and increasing shortness of breath. She had a chest x-ray, which showed basilar infiltration. She was also having wheezing. She was also having hypotension. She was chronically immunosuppressed and that is why the patient was admitted to the hospital. Initially, she required IMCU admission for her low blood pressure. She did not require any vasopressor. We treated her with empiric antibiotic therapy. The patient also had elevated BNP that is why echocardiography was done, which showed diastolic dysfunction. The patient did not have any CHF symptoms. This patient was transferred to medical floor, where we changed the antibiotic therapy to Augmentin. The patient was also given momentarily while in the hospital short course of steroid, which was discontinued on discharge. The patient is on room air. She is tolerating p.o. well, ambulatory. The patient is seen and examined today. All review of systems reviewed and negative. Plan of care discussed with the patient and family member. Her examination is normal. We prescribed Diflucan for her yeast infection after antibiotic therapy, which she normally gets, and I advised her to take as needed only. The patient is medically stable for discharge today. Job ID: [id number]
== END 2018-09-12 11:36 | disposition home or self-care (01) | DRG 871 ==
LOC: SCSER 00:36 → IMCU/EMU 01:54 → T4-A 09-10 21:57
PROVIDERS: ADMIT Hospitalist; ATTEND Hospitalist
DX: A41.9 Sepsis, unspecified organism (principal); J15.9 Unspecified bacterial pneumonia; E87.2 Acidosis; M06.9 Rheumatoid arthritis, unspecified; M35.00 Sjogren syndrome, unspecified; H35.30 Unspecified macular degeneration; J45.909 Unspecified asthma, uncomplicated; I10 Essential (primary) hypertension; K21.9 Gastro-esophageal reflux disease without esophagitis; F51.04 Psychophysiologic insomnia; M81.0 Age-related osteoporosis without current pathological fracture; E87.6 Hypokalemia; R79.89 Other specified abnormal findings of blood chemistry; E66.9 Obesity, unspecified; M48.061 Spinal stenosis, lumbar region without neurogenic claudication; I51.89 Other ill-defined heart diseases; J20.9 Acute bronchitis, unspecified; Z68.33 Body mass index [BMI] 33.0-33.9, adult; Z98.1 Arthrodesis status; Z90.710 Acquired absence of both cervix and uterus; Z90.49 Acquired absence of other specified parts of digestive tract; Z98.890 Other specified postprocedural states; Z88.1 Allergy status to other antibiotic agents; Z88.8 Allergy status to other drugs, medicaments and biological substances; Z79.899 Other long term (current) drug therapy; Z79.51 Long term (current) use of inhaled steroids
CPT/HCPCS: 36415; 71045; 80048; 80053; 80202; 81015; 82533; 83605; 83735; 83880; 84100; 84484; 85025; 87040; 87086; 87804; 93005; 93306; 94640; 94760; 96361; 96365; 96367; J0456; J0692; J1650; J2405; J2920; J3370; J3480; J7050; J7512; J7620; J7626

== ENCOUNTER 2018-09-25 13:29 | Outpatient (CLI) | payer MEDICARE ==
--- NOTE | 2018-09-25 14:22 | RAD ---
TWO VIEWS CHEST: Comparison: 07-01-18 History: Dyspnea. FINDINGS: Two views of the chest shows normal sized cardiomediastinal silhouette. Increased interstitial markin gs are present. There are two small areas of airspace opacification projecting over the right lung wh ich were not seen on the prior radiograph and may represent small infiltrates. No pleural effusions i s seen. Degenerative changes are seen in the spine. Hardware is seen in the spine. There are multiple wedge compression fractures in the spine. IMPRESSION: Possible new acute infiltrates involving the right lung. POS: [facility]
== END 2018-09-25 13:30 | disposition home or self-care (01) ==
LOC: RAD 13:29
PROVIDERS: ATTEND Internal Medicine Critical Care Medicine
DX: R06.00 Dyspnea, unspecified (principal)
CPT/HCPCS: 71046

== ENCOUNTER 2018-12-06 07:52 | Outpatient (CLI) | payer MEDICARE ==
--- NOTE | 2018-12-06 09:36 | BD ---
DEXA BONE DENSITY STUDY: HISTORY: Age-related osteoporosis without current pathologic fracture. FINDINGS: Right Femoral Neck BMD (g/cm2) 0.592 T-Score: -2.3 Total 0.734 T-Score: -1.7 Evidence for osteopenia with increased risk for fracture. Left Femoral Neck 0.596 T-Score: -2.3 Total 0.672 T-Score: -2.2 Evidence for osteopenia with increased risk for fracture. POS: [facility]
== END 2018-12-06 07:53 | disposition home or self-care (01) ==
LOC: BICMAMMO 07:52
PROVIDERS: ATTEND Internal Medicine Rheumatology
DX: M81.0 Age-related osteoporosis without current pathological fracture (principal); M85.89 Other specified disorders of bone density and structure, multiple sites
CPT/HCPCS: 77080

== ENCOUNTER 2018-12-24 09:48 | Outpatient (CLI) | payer MEDICARE ==
--- NOTE | 2018-12-24 11:58 | RAD ---
RADIOGRAPH CHEST 2 VIEWS: DATE: 12-24-18 TIME: 9:59 A.M. HISTORY: 68-year-old female with dyspnea. FINDINGS: There is no air space density, pulmonary edema, pleural effusion, pneumothorax, or cardiomegaly. Old fracture deformity of lateral aspect of the right 5th rib. Adjacent to that faint, very small infiltr ate like density is unchanged compared to 09-25-18, suggestive of scar. The other density projecting in feriorly to that on the prior study is no longer present. There has been no other interval change. La teral views demonstrates old compression or burst fracture of one of the mid thoracic vertebral shima s, and also old burst fracture near the thoracolumbar junction, stabilized with pedicle screws superi or and inferior to it. IMPRESSION: No acute cardiopulmonary findings. milena POS: NATE
== END 2018-12-24 09:49 | disposition home or self-care (01) ==
LOC: RAD 09:48
PROVIDERS: ATTEND Internal Medicine Critical Care Medicine
DX: R06.00 Dyspnea, unspecified (principal)
CPT/HCPCS: 71046

== ENCOUNTER 2019-02-03 09:39 | Outpatient (CLI) | payer MEDICARE ==
--- NOTE | 2019-02-03 12:38 | RAD ---
CHEST 2 VIEWS: HISTORY: Dyspnea. COMPARISON: 12/24/2018. FINDINGS: Scattered chronic subpleural changes and pleural thickening as well as some linear parenchymal change s in the bases. No confluent pneumonia. No overt edema. Heart size is within normal limits. IMPRESSION: Stable chronic changes. No significant acute process. Post thoracolumbar spine pedicle screw and ro d fixation changes. POS: [facility]
== END 2019-02-03 09:40 | disposition home or self-care (01) ==
LOC: RAD 09:39
PROVIDERS: ATTEND Internal Medicine Critical Care Medicine
DX: R06.00 Dyspnea, unspecified (principal); Z98.890 Other specified postprocedural states
CPT/HCPCS: 71046

== ENCOUNTER 2019-05-02 18:58 | Emergency (ER) | payer MEDICARE ==
[2019-05-02] MEDS ORDERED: Fentanyl 100 MCG/2 ML VIAL ONE (19:34)
--- NOTE | 2019-05-02 20:01 | RAD ---
EXAM: AP pelvis one view: HISTORY: Injury from trauma COMPARISON: None FINDINGS: Bony demineralization. Arthrosis and degenerative changes. Postoperative changes of the lumbar spine with fixation. Degenerative changes. No acute fracture or dislocation or other significant acute osseous abnormality. IMPRESSION: No significant acute process.
--- NOTE | 2019-05-02 20:02 | RAD ---
RIGHT IHP TWO VIEWS: 05/02/19 HISTORY: Right hip injury. FINDINGS: Moderate joint space narrowing, mild osteophytosis and subchondral sclerosis. Femoral head contour is maintain. No acute fracture or dislocation. Postoperative and degenerative changes lumbar spine. IMPRESSION: Osteoarthritis right hip. No acute osseous abnormalities are demonstrated. POS: BST
--- NOTE | 2019-05-02 20:04 | RAD ---
Exam: Right shoulder 3 views: HISTORY: Injury from trauma FINDINGS: Very markedly comminuted fracture of the humeral head and neck with displacement of multiple fragment s including some of the greater tuberosity. There is no arin dislocation. Probable comminuted fracture of the inferior lateral margin of the scapula as well. IMPRESSION: Very markedly comminuted markedly displaced foreshortened fracture of the proximal humeral head and n minh without arin dislocation. Probable comminuted fracture of the lateral margin of the scapula. Multiple rib deformities on the right which have more of an old appearance.
--- NOTE | 2019-05-02 20:06 | RAD ---
Exam: Right humerus one view: HISTORY: Injury from trauma Again noted is comminuted fracture involving the humeral head and neck with some foreshortening and m alalignment without arin dislocation. The humeral shaft and distal humerus appear intact. IMPRESSION: Proximal humeral head and neck fractures with displacement and foreshortening. The remainder of the h umerus appears intact. On this study the lateral margin of the scapula appears intact
[2019-05-02] MEDS ORDERED: Morphine 4 MG/ML VIAL ONE (20:41)
[2019-05-02] MEDS ORDERED: Acetaminophen/Codeine 30-300mg Tablet ONE (23:43)
[2019-05-02] MEDS ORDERED: Ibuprofen 200 MG TAB ONE (23:43)
== END 2019-05-02 22:11 | disposition home or self-care (01) ==
LOC: ERS 18:58
DX: S42.201A Unspecified fracture of upper end of right humerus, initial encounter for closed fracture (principal); S42.101A Fracture of unspecified part of scapula, right shoulder, initial encounter for closed fracture; M06.9 Rheumatoid arthritis, unspecified; I10 Essential (primary) hypertension; J45.909 Unspecified asthma, uncomplicated; Z79.899 Other long term (current) drug therapy; Z79.52 Long term (current) use of systemic steroids; Z79.51 Long term (current) use of inhaled steroids; W18.30XA Fall on same level, unspecified, initial encounter
CPT/HCPCS: 72170; 96361; 96374; 96375; J2270; J3010

== ENCOUNTER 2019-09-04 11:46 | Outpatient (CLI) | payer MEDICARE ==
--- NOTE | 2019-09-04 12:07 | RAD ---
4 views lumbar spine: 09/04/2019 COMPARISON: 06/11/2014 HISTORY: Prior lumbar spine surgery, lumbar pain, sacroiliac pain. FINDINGS: Bilateral pedicle screws noted at T12 and L2 with vertically oriented interlocking rods, tr eating a fracture of L1 with prominent vertebral body height loss. Findings at T12, L1, and L2 are stable when compared to the 06/11/2014 examination. There is disc space narrowing with degenerative endplate change and lateral osteophyte formation at L 2-3, L3-4, and L4-5, similar when compared to prior imaging. Neutral lateral, flexion lateral, and extension lateral imaging demonstrates no anterolisthesis or retrolisthesis. There is mild superior e ndplate irregularity involving the L3 vertebral body, new when compared to the prior exam, suggesting an age-indeterminate mild superior endplate fracture of L3. There is approximately 10% los s of vertebral body height at L3. There is a focal area of anterior angulation of the mid/lower sacrum suggesting an old sacral fractur e. IMPRESSION: Postoperative and degenerative change within the lumbar spine as detailed above. Age-inde terminate mild superior endplate fracture of L3.
== END 2019-09-04 11:47 | disposition home or self-care (01) ==
LOC: BICRAD 11:46
PROVIDERS: ATTEND Family Medicine
DX: M54.5 Low back pain (principal); M53.3 Sacrococcygeal disorders, not elsewhere classified; M47.816 Spondylosis without myelopathy or radiculopathy, lumbar region; Z98.890 Other specified postprocedural states
CPT/HCPCS: 72110

== ENCOUNTER 2020-11-30 18:00 | Outpatient (CLI) | payer MEDICARE | END 2020-11-30 18:01 | disposition home or self-care (01) | LOC: SLEEPLAB 18:00 | PROVIDERS: ATTEND Internal Medicine Critical Care Medicine | DX: G47.33 Obstructive sleep apnea (adult) (pediatric) (principal); I10 Essential (primary) hypertension; R06.83 Snoring; J45.909 Unspecified asthma, uncomplicated; M06.9 Rheumatoid arthritis, unspecified; G47.00 Insomnia, unspecified; E66.9 Obesity, unspecified; Z68.34 Body mass index [BMI] 34.0-34.9, adult | CPT/HCPCS: 95806 ==

== ENCOUNTER 2021-06-02 10:54 | Outpatient (CLI) | payer MEDICARE | END 2021-06-02 10:55 | disposition home or self-care (01) | LOC: BICRAD 10:54 | PROVIDERS: ATTEND Neurological Surgery | DX: M54.2 Cervicalgia (principal); M47.812 Spondylosis without myelopathy or radiculopathy, cervical region; M43.12 Spondylolisthesis, cervical region | CPT/HCPCS: 72050 ==

== ENCOUNTER 2021-06-23 12:18 | Outpatient (CLI) | payer MEDICARE | END 2021-06-23 12:19 | disposition home or self-care (01) | LOC: TBSIIMAG 12:18 | PROVIDERS: ATTEND Neurological Surgery | DX: M47.22 Other spondylosis with radiculopathy, cervical region (principal); M50.11 Cervical disc disorder with radiculopathy, high cervical region; M48.02 Spinal stenosis, cervical region; M53.82 Other specified dorsopathies, cervical region; G95.19 Other vascular myelopathies | CPT/HCPCS: 72141 ==

== ENCOUNTER 2021-07-05 09:29 | Outpatient (CLI) | payer MEDICARE ==
[2021-07-05 12:07] LABS: Hemoglobin 13.5 g/dL (12.0-15.5); Mean Corpuscular HGB CONC 32.1 g/dL (32.0-36.0); Mean Corpuscular Hemoglobin 33.3 pg (27.0-33.0); Mean Corpuscular Volume 103.7 fl (81.6-98.3); Mean Platelet Volume 10.8 fl (7.4-10.4); Platelet Count 218 10x3/uL (150-450); RBC Distribution Width 14.2 % (11.5-14.5); Red Blood Cell (RBC) Count 4.05 10x6/uL (3.90-5.03); White Blood Cell (WBC) Count 11.1 10x3/uL (3.5-10.5)
[2021-07-05 12:26] LABS: Anion Gap 14 mmol/L (10-20); BUN (Urea Nitrogen) 12 mg/dL (9.8-20.1); Calc. Creatinine Clearance 0 mL/min (70-130); Calcium 8.8 mg/dL (7.8-10.44); Carbon Dioxide 28 mmol/L (23-31); Chloride 106 mmol/L (98-107); Glucose 72 mg/dL (80-115); PTT 22.7 sec (22.0-33.0); Potassium 3.8 mmol/L (3.5-5.1); Prothrombin Time 10.9 sec (9.5-12.1); Sodium 144 mmol/L (136-145)
[2021-07-05 16:45] LABS: SARS-CoV-2 PCR by NAA Not Detected (NotDetected)
== END 2021-07-05 09:30 | disposition home or self-care (01) ==
LOC: LABBT 09:29
PROVIDERS: ATTEND Neurological Surgery
DX: Z01.818 Encounter for other preprocedural examination (principal); Z20.822 Contact with and (suspected) exposure to COVID-19
CPT/HCPCS: 80048; 85027; 85610; 85730; 93005; U0003; U0005; 93010

== ENCOUNTER 2021-07-08 07:23 | Day surgery (SDC) | payer MEDICARE ==
[2021-07-06 11:54] VITALS: BMI 39.0
[2021-07-08] MEDS ORDERED: Neomycin-Polymyxin 1 ML AMP ONE (08:16)
[2021-07-08] MEDS ORDERED: Thrombin 5000 UNITS/5 ML VIAL ONE (08:16)
[2021-07-08] MEDS ORDERED: ceFAZolin 2 GM/DEX 5% 100 ML BAG ONE (08:29)
[2021-07-08] MEDS ORDERED: Scopolamine 1.5 mg/72 hour Patch ONE (08:33)
[2021-07-08] MEDS ORDERED: Morphine 4 MG/ML VIAL ONE (08:52)
[2021-07-08] MEDS ORDERED: Fentanyl 100 MCG/2 ML VIAL ONE ×2 (08:52→11:12)
[2021-07-08] MEDS ORDERED: Phenylephrine 10 MG/ML VIAL ONE (09:10)
[2021-07-08] MEDS ORDERED: Lidocaine 1% PF 5 ML VIAL ONE (09:10)
[2021-07-08] MEDS ORDERED: Dexamethasone 20 MG/5 ML VIAL ONE (09:10)
[2021-07-08] MEDS ORDERED: Rocuronium Bromide 10 MG/ML (10ML VIAL) ONE (09:10)
[2021-07-08] MEDS ORDERED: PROPOFOL 200 MG/20 ML VIAL ONE (09:10)
[2021-07-08] MEDS ORDERED: SUGAMMADEX SODIUM 200 MG/2 ML VIAL ONE ×2 (11:26→11:35)
[2021-07-08] MEDS ORDERED: Albuterol Sulfate HFA (OR ONLY) ONE (11:41)
== END 2021-07-08 14:57 | disposition home or self-care (01) ==
LOC: SDC 07:23
PROVIDERS: ATTEND Neurological Surgery
PROC: 0RG20A0 Fusion of 2 or more Cervical Vertebral Joints with Interbody Fusion Device, Anterior Approach, Anterior Column, Open Approach (ICD-10-PCS; principal; 2021-07-08)
DX: M43.12 Spondylolisthesis, cervical region (principal); M50.01 Cervical disc disorder with myelopathy, high cervical region; M06.9 Rheumatoid arthritis, unspecified; M85.80 Other specified disorders of bone density and structure, unspecified site; G47.33 Obstructive sleep apnea (adult) (pediatric); I45.10 Unspecified right bundle-branch block; K21.9 Gastro-esophageal reflux disease without esophagitis; Z79.899 Other long term (current) drug therapy; Z88.1 Allergy status to other antibiotic agents; Z88.8 Allergy status to other drugs, medicaments and biological substances; Z91.048 Other nonmedicinal substance allergy status; Z98.1 Arthrodesis status
CPT/HCPCS: 20930; 20936; 22551; 22552; 22845; 22853 ×2; 76000; C1713 ×5; C1776; J1100; J2270; J2370; J2704; J3010

== ENCOUNTER 2021-09-14 09:30 | Outpatient (CLI) | payer MEDICARE | END 2021-09-14 09:31 | disposition home or self-care (01) | LOC: TBSIIMAG 09:30 | PROVIDERS: ATTEND Neurological Surgery | DX: M50.00 Cervical disc disorder with myelopathy, unspecified cervical region (principal); Z98.890 Other specified postprocedural states | CPT/HCPCS: 72040 ==

== ENCOUNTER 2021-11-16 14:21 | Outpatient (CLI) | payer MEDICARE ==
[2021-11-16 15:05] LABS: #Eosinphils 0.1 10x3/uL (0.0-0.5); #Monocytes 0.6 10x3/uL (0.0-1.1); #Neutrophils 8.7 10x3/uL (1.5-8.4); %Basophils 0.3 % (0.0-2.0); %Eosinophils 0.6 % (0.0-6.0); %Lymphocytes 5.3 % (18.0-47.0); %Monocytes 6.4 % (0.0-10.0); %Neutrophils 87.1 % (40.0-75.0); Mean Corpuscular HGB CONC 31.3 g/dL (32.0-36.0); Mean Corpuscular Hemoglobin 30.9 pg (27.0-33.0); Mean Corpuscular Volume 98.7 fl (81.6-98.3); Mean Platelet Volume 10.6 fl (7.4-10.4); Platelet Count 234 10x3/uL (150-450); RBC Distribution Width 16.6 % (11.5-14.5); Red Blood Cell (RBC) Count 3.88 10x6/uL (3.90-5.03); White Blood Cell (WBC) Count 9.9 10x3/uL (3.5-10.5)
[2021-11-16 15:24] LABS: Anion Gap 11 mmol/L (10-20); BUN (Urea Nitrogen) 20 mg/dL (9.8-20.1); Calc. Creatinine Clearance 0 mL/min (70-130); Calcium 8.9 mg/dL (7.8-10.44); Carbon Dioxide 27 mmol/L (23-31); Chloride 105 mmol/L (98-107); Glucose 113 mg/dL (80-115); Potassium 4.2 mmol/L (3.5-5.1); Prothrombin Time 10.5 sec (9.5-12.1); Sodium 139 mmol/L (136-145)
[2021-11-17 12:18] LABS: SARS-CoV-2 PCR by NAA Not Detected (NotDetected)
== END 2021-11-16 14:22 | disposition home or self-care (01) ==
LOC: LABBT 14:21
PROVIDERS: ATTEND Orthopaedic Surgery
DX: Z01.818 Encounter for other preprocedural examination (principal); M17.12 Unilateral primary osteoarthritis, left knee; Z20.822 Contact with and (suspected) exposure to COVID-19
CPT/HCPCS: 80048; 85025; 85610; 87081; 93005; U0003; U0005; 93010

== ENCOUNTER 2021-11-21 05:32 | Observation (INO) | payer MEDICARE ==
[2021-11-21] MEDS ORDERED: Tranexamic Acid 1,000 MG/10 ML VIAL ONE (05:46)
[2021-11-21] MEDS ORDERED: Sodium Chloride 0.9% 100 ML ONE (05:46)
[2021-11-21] MEDS ORDERED: Vancomycin HCl 1.5 GM in Sodium Chloride 0.9% 250 ML 300 ML IVPB SCH (06:00)
[2021-11-21] MEDS ORDERED: ceFAZolin (BATCH) 2 GM in Premix Bag 1 BAG IVPB SCH (06:00)
[2021-11-21] MEDS ORDERED: fentaNYL Citrate/PF 100 MCG/2 ML SYRINGE ONE ×2 (06:11→08:29)
[2021-11-21] MEDS ORDERED: Bupivacaine PF 0.5% 30 ML VIAL ONE (06:26)
[2021-11-21] MEDS ORDERED: Fentanyl 100 MCG/2 ML VIAL ONE ×4 (06:41→10:44)
[2021-11-21] MEDS ORDERED: Midazolam HCl 2 mg/2 ml Vial ONE (06:41)
[2021-11-21] MEDS ORDERED: Ropivacaine 0.5% HCl/PF (150 MG/30 ML VIAL) ONE (06:41)
[2021-11-21] MEDS ORDERED: ceFAZolin (BATCH) 2 GM/100 ML BAG ONE (06:58)
[2021-11-21] MEDS ORDERED: Scopolamine 1.5 mg/72 hour Patch ONE (07:14)
[2021-11-21] MEDS ORDERED: methylPREDNISolone Sod Succ/PF 125 MG/2 ML VIAL ONE (07:14)
[2021-11-21] MEDS ORDERED: Lidocaine 1% PF 5 ML VIAL ONE (07:20)
[2021-11-21] MEDS ORDERED: PROPOFOL 200 MG/20 ML VIAL ONE (07:20)
[2021-11-21] MEDS ORDERED: Dexamethasone 20 MG/5 ML VIAL ONE (07:20)
[2021-11-21] MEDS ORDERED: Ondansetron PF 4 MG/2 ML Vial ONE (07:20)
[2021-11-21] MEDS ORDERED: diphenhydrAMINE 50 MG/ML VIAL ONE ×2 (07:20→09:05)
[2021-11-21] MEDS ORDERED: Fentanyl 100 MCG/2 ML VIAL SLOW IVP PRN (07:52)
[2021-11-21] MEDS ORDERED: HYDROcodone/Acetaminophen 10/325 mg Tablet PO PRN ×2 (08:00)
[2021-11-21] MEDS ORDERED: Ropivacaine 0.2% 550 ML 550 ML NERVE BLCK SCH (08:00)
[2021-11-21] MEDS ORDERED: Promethazine HCl 25 MG/ML VIAL IM PRN ×3 (08:00→11:11)
[2021-11-21] MEDS ORDERED: Zolpidem Tartrate 5 MG TAB PO PRN ×2 (08:00→11:11)
[2021-11-21] MEDS ORDERED: Ondansetron PF 4 MG/2 ML Vial IVP PRN ×2 (08:00→11:11)
[2021-11-21] MEDS ORDERED: traMADol HCl 50 MG TAB PO PRN ×2 (08:00)
[2021-11-21] MEDS ORDERED: Promethazine HCl 25 MG/ML VIAL IVPB PRN (09:16)
[2021-11-21] MEDS ORDERED: Ondansetron HCl/PF 4 MG/2 ML Vial IVP PRN (09:16)
[2021-11-21] MEDS ORDERED: Acetaminophen 325 MG TAB PO PRN (11:11)
[2021-11-21] MEDS ORDERED: diphenhydrAMINE 25 MG CAP PO PRN (11:11)
[2021-11-21] MEDS ORDERED: tiZANidine HCl 4 MG TAB PO PRN (11:13)
[2021-11-21] MEDS ORDERED: Albuterol Sulfate 2.5 mg/3 ml Neb NEB PRN (11:13)
[2021-11-21] MEDS ORDERED: Sodium Chloride 0.9% 1,000 ML IV SCH (11:15)
[2021-11-21] MEDS ORDERED: Non-Formulary Item 1 EACH (Denosumab 60 MG/ML Vial) FS SCH (11:15)
[2021-11-21] MEDS ORDERED: Artificial Tear Sol 15 ML BOT EA EYE PRN (11:30)
[2021-11-21] MEDS ORDERED: Methotrexate Sodium 2.5 MG TAB PO SCH (12:00)
[2021-11-21] MEDS: Ketorolac Tromethamine 30 MG/ML VIAL IVP SCH ×3 (12:48→23:28)
[2021-11-21 13:17] VITALS: BMI 38.9
[2021-11-21] MEDS: ceFAZolin (BATCH) 2 GM in Premix Bag 1 BAG IVPB SCH ×2 (14:18→23:29)
[2021-11-21 15:37] LABS: #Lymphocytes 0.3 thou/uL (1.20-3.40); #Monocytes 0.3 thou/uL (0.11-0.59); #Neutrophils 11.4 thou/uL (1.40-6.50); %Eosinophils 0.1 % (0.0-10.0); %Lymphocytes 2.1 % (21.0-51.0); %Monocytes 2.2 % (0.0-10.0); %Neutrophils 95.6 % (42.0-75.0); Hemoglobin 11.7 g/dL (12.0-16.0); Mean Corpuscular HGB CONC 32.7 g/dL (32.0-36.0); Mean Corpuscular Hemoglobin 32.1 pg (27.0-31.0); Mean Corpuscular Volume 98.1 fL (78.0-98.0); Mean Platelet Volume 8.1 fL (7.4-10.4); Platelet Count 208 thou/uL (130-400); RBC Distribution Width 16.7 % (11.5-14.5); Red Blood Cell (RBC) Count 3.64 mill/uL (4.20-5.40)
[2021-11-21 16:01] LABS: Anion Gap 14 mmol/L (10-20); BUN (Urea Nitrogen) 18 mg/dL (9.8-20.1); Calc. Creatinine Clearance 77 mL/min (70-130); Calcium 8.5 mg/dL (7.8-10.44); Carbon Dioxide 25 mmol/L (23-31); Chloride 105 mmol/L (98-107); Glucose 177 mg/dL (80-115); Potassium 4.4 mmol/L (3.5-5.1); Sodium 140 mmol/L (136-145)
[2021-11-21] MEDS: Sodium Chloride 0.9% 1,000 ML IV SCH (18:22)
[2021-11-21] MEDS: Arformoterol 15 MCG/2 ML NEB NEB SCH (18:59)
[2021-11-21] MEDS: Budesonide 0.5 MG/2 ML NEB NEB SCH (19:02)
[2021-11-21] MEDS: Aspirin 81 mg Enteric Coated Tablet PO SCH (20:17)
[2021-11-21] MEDS: Ferrous Gluconate 324 MG TAB PO SCH (20:19)
[2021-11-21] MEDS: Senokot S 8.6-50 MG TAB PO SCH (20:19)
[2021-11-21] MEDS: Calcium Carbonate 600 MG + Vit D TAB PO SCH (20:19)
[2021-11-21] MEDS: Carvedilol 3.125 MG TAB PO SCH (20:20)
[2021-11-21] MEDS: Azelastine 137 MCG/Spray 30 ML FS SCH (20:31)
[2021-11-21] MEDS: Pilocarpine 5 MG TAB PO SCH (20:33)
[2021-11-21] MEDS ORDERED: traZODone HCl 50 MG TAB PO SCH (21:00)
[2021-11-21] MEDS ORDERED: Montelukast Sodium 10 mg Tablet PO SCH (21:00)
[2021-11-21] MEDS ORDERED: Doxepin HCl 25 MG CAP PO SCH (21:00)
[2021-11-21] MEDS: Ipratropium Bromide 0.06% Nasal Inhaler 15ml EA NARE SCH (21:59)
[2021-11-22] MEDS: Ketorolac Tromethamine 30 MG/ML VIAL IVP SCH ×2 (05:49→11:20)
[2021-11-22] MEDS: Sodium Chloride 0.9% 1,000 ML IV SCH (05:50)
[2021-11-22 05:55] LABS: Hemoglobin 10.6 g/dL (12.0-16.0); Mean Corpuscular HGB CONC 32.8 g/dL (32.0-36.0); Mean Corpuscular Hemoglobin 32.6 pg (27.0-31.0); Mean Corpuscular Volume 99.3 fL (78.0-98.0); Mean Platelet Volume 7.8 fL (7.4-10.4); Platelet Count 197 thou/uL (130-400); RBC Distribution Width 16.6 % (11.5-14.5); Red Blood Cell (RBC) Count 3.24 mill/uL (4.20-5.40); White Blood Cell (WBC) Count 12.4 thou/uL (4.8-10.8)
[2021-11-22 06:16] LABS: Anion Gap 13 mmol/L (10-20); BUN (Urea Nitrogen) 16 mg/dL (9.8-20.1); Calc. Creatinine Clearance 91 mL/min (70-130); Calcium 8.2 mg/dL (7.8-10.44); Carbon Dioxide 25 mmol/L (23-31); Chloride 107 mmol/L (98-107); Glucose 104 mg/dL (80-115); Potassium 4.7 mmol/L (3.5-5.1); Sodium 140 mmol/L (136-145)
[2021-11-22] MEDS ORDERED: predniSONE 20 MG TAB PO SCH (08:00)
[2021-11-22] MEDS: Arformoterol 15 MCG/2 ML NEB NEB SCH (08:00)
[2021-11-22] MEDS: Budesonide 0.5 MG/2 ML NEB NEB SCH (08:02)
[2021-11-22] MEDS: Senokot S 8.6-50 MG TAB PO SCH (08:31)
[2021-11-22] MEDS: Aspirin 81 mg Enteric Coated Tablet PO SCH (08:32)
[2021-11-22] MEDS: Calcium Carbonate 600 MG + Vit D TAB PO SCH (08:32)
[2021-11-22] MEDS: Ferrous Gluconate 324 MG TAB PO SCH (08:33)
[2021-11-22] MEDS: Carvedilol 3.125 MG TAB PO SCH (08:33)
[2021-11-22] MEDS: Ipratropium Bromide 0.06% Nasal Inhaler 15ml EA NARE SCH (08:39)
[2021-11-22] MEDS: Azelastine 137 MCG/Spray 30 ML FS SCH (08:39)
[2021-11-22] MEDS ORDERED: DULoxetine 30 MG CAP PO SCH (09:00)
[2021-11-22] MEDS ORDERED: Multivitamin W/ Minerals 1 TAB PO SCH (09:00)
[2021-11-22] MEDS ORDERED: Folic Acid 1 MG TAB PO SCH (09:00)
[2021-11-22] MEDS ORDERED: Furosemide 40 MG TAB PO SCH (09:00)
[2021-11-22] MEDS ORDERED: Potassium Chloride 20 MEQ TAB PO SCH (09:00)
[2021-11-22] MEDS ORDERED: Losartan 25 MG TAB PO SCH (09:00)
[2021-11-22] MEDS ORDERED: Cholecalciferol 1,000 UNITS (25 MCG) TAB PO SCH (09:00)
[2021-11-22] MEDS ORDERED: azaTHIOprine 50 MG TAB PO SCH (09:00)
[2021-11-22] MEDS: Pilocarpine 5 MG TAB PO SCH (11:21)
[2021-11-22 11:46] VITALS: BP 108/70; TEMP 98.3
== END 2021-11-22 11:59 | disposition home health service (06) ==
LOC: SDC 05:32 → SJJU 11:12 → SDC 13:00 → SJJU 13:29 → OBSVTOIN 14:23 → INTOOBSV 14:23
PROVIDERS: ADMIT Orthopaedic Surgery; ATTEND Orthopaedic Surgery
PROC: 0SRD0J9 Replacement of Left Knee Joint with Synthetic Substitute, Cemented, Open Approach (ICD-10-PCS; principal; 2021-11-21)
PROC: 8E0YXBZ Computer Assisted Procedure of Lower Extremity (ICD-10-PCS; 2021-11-21)
PROC: 3E0T3BZ Introduction of Anesthetic Agent into Peripheral Nerves and Plexi, Percutaneous Approach (ICD-10-PCS; 2021-11-21)
DX: M06.862 Other specified rheumatoid arthritis, left knee (principal); M17.11 Unilateral primary osteoarthritis, right knee; I12.9 Hypertensive chronic kidney disease with stage 1 through stage 4 chronic kidney disease, or unspecified chronic kidney disease; N18.9 Chronic kidney disease, unspecified; E78.5 Hyperlipidemia, unspecified; J45.909 Unspecified asthma, uncomplicated; K21.9 Gastro-esophageal reflux disease without esophagitis; I45.10 Unspecified right bundle-branch block; G47.33 Obstructive sleep apnea (adult) (pediatric); Z79.52 Long term (current) use of systemic steroids; Z79.899 Other long term (current) drug therapy; Z88.1 Allergy status to other antibiotic agents; Z88.8 Allergy status to other drugs, medicaments and biological substances; Z91.048 Other nonmedicinal substance allergy status; Z98.1 Arthrodesis status
CPT/HCPCS: 20985; 27447; 64448; 73560; 80048 ×2; 85025; 85027; 94640 ×3; 97110 ×2; 97116 ×2; 97139 ×2; 97530 ×2; 98960; A4306; C1713; C1776; 36415; 96365; 96375; 96376; G0378; J0690; J1100; J1200; J1885; J2250; J2405; J2704; J2795; J2930; J3010; J3370; J3490; J7050; J7500; J7512; J7620; J7626; S0020

== ENCOUNTER 2022-03-13 08:51 | Outpatient (CLI) | payer MEDICARE | END 2022-03-13 08:52 | disposition home or self-care (01) | LOC: BICMAMMO 08:51 | PROVIDERS: ATTEND Internal Medicine Rheumatology | DX: M81.0 Age-related osteoporosis without current pathological fracture (principal); M85.852 Other specified disorders of bone density and structure, left thigh | CPT/HCPCS: 77080 ==

== ENCOUNTER 2022-03-14 12:20 | Outpatient (CLI) | payer MEDICARE | END 2022-03-14 12:21 | disposition home or self-care (01) | LOC: TBSIIMAG 12:20 | PROVIDERS: ATTEND Neurological Surgery | DX: M54.50 Low back pain, unspecified (principal); M47.816 Spondylosis without myelopathy or radiculopathy, lumbar region; M48.061 Spinal stenosis, lumbar region without neurogenic claudication; M51.86 Other intervertebral disc disorders, lumbar region; Z98.890 Other specified postprocedural states | CPT/HCPCS: 72120; 72148 ==

== ENCOUNTER 2022-09-15 12:47 | Outpatient (CLI) | payer MEDICARE | END 2022-09-15 12:48 | disposition home or self-care (01) | LOC: TBSIIMAG 12:47 | PROVIDERS: ATTEND Nurse Practitioner Family | DX: M48.02 Spinal stenosis, cervical region (principal); M47.812 Spondylosis without myelopathy or radiculopathy, cervical region; M50.31 Other cervical disc degeneration, high cervical region; G95.89 Other specified diseases of spinal cord | CPT/HCPCS: 72141 ==

== ENCOUNTER 2022-10-24 09:49 | Outpatient (CLI) | payer MEDICARE | END 2022-10-24 09:50 | disposition home or self-care (01) | LOC: BICRAD 09:49 | PROVIDERS: ATTEND Nurse Practitioner Family | DX: M47.812 Spondylosis without myelopathy or radiculopathy, cervical region (principal); M50.322 Other cervical disc degeneration at C5-C6 level; M50.323 Other cervical disc degeneration at C6-C7 level; M46.02 Spinal enthesopathy, cervical region; Z98.1 Arthrodesis status | CPT/HCPCS: 72052 ==

== ENCOUNTER 2023-02-01 08:53 | Outpatient (CLI) | payer MEDICARE ==
[2023-02-01 12:04] LABS: #Basophils 0.1 10x3/uL (0.0-0.2); #Eosinphils 0.2 10x3/uL (0.0-0.5); #Monocytes 0.9 10x3/uL (0.0-1.1); #Neutrophils 10.4 10x3/uL (1.5-8.4); %Basophils 0.5 % (0.0-2.0); %Eosinophils 1.4 % (0.0-6.0); %Lymphocytes 9.2 % (18.0-47.0); %Monocytes 6.9 % (0.0-10.0); %Neutrophils 81.3 % (40.0-75.0); Hemoglobin 12.5 g/dL (12.0-15.5); Mean Corpuscular HGB CONC 31.8 g/dL (32.0-36.0); Mean Corpuscular Hemoglobin 33.1 pg (27.0-33.0); Mean Platelet Volume 10.7 fl (7.4-10.4); Platelet Count 235 10x3/uL (150-450); RBC Distribution Width 15.9 % (11.5-14.5); Red Blood Cell (RBC) Count 3.78 10x6/uL (3.90-5.03); White Blood Cell (WBC) Count 12.8 10x3/uL (3.5-10.5)
== END 2023-02-01 08:54 | disposition home or self-care (01) ==
LOC: LABBT 08:53
PROVIDERS: ATTEND Orthopaedic Surgery Hand Surgery
DX: Z01.818 Encounter for other preprocedural examination (principal); G56.02 Carpal tunnel syndrome, left upper limb; G56.12 Other lesions of median nerve, left upper limb
CPT/HCPCS: 85025; 93005; 93010

== ENCOUNTER 2023-02-05 13:31 | Day surgery (SDC) | payer MEDICARE ==
[2023-02-01 09:49] VITALS: BMI 36.0
[2023-02-05] MEDS ORDERED: Scopolamine 1.5 mg/72 hour Patch ONE (16:48)
[2023-02-05] MEDS ORDERED: Bacitracin Zinc Ointment 30 gm TUBE ONE (18:10)
[2023-02-05] MEDS ORDERED: Bupivacaine PF 0.5% 30 ML VIAL ONE (18:10)
[2023-02-05] MEDS ORDERED: Famotidine/PF 20 mg/2ml Vial ONE (18:11)
[2023-02-05] MEDS ORDERED: Hydrocortisone Sod Succ/PF 250 mg/2 ml Vial ONE (18:11)
[2023-02-05] MEDS ORDERED: fentaNYL PF 100 MCG/2 ML SYRINGE ONE (18:12)
[2023-02-05] MEDS ORDERED: Sodium Chloride 0.9% 100 ML ONE (18:22)
[2023-02-05] MEDS ORDERED: CEFAZOLIN 2 GM VIAL ONE (18:22)
[2023-02-05] MEDS ORDERED: PROPOFOL 200 MG/20 ML VIAL ONE (18:30)
[2023-02-05] MEDS ORDERED: Lidocaine 1% PF 5 ML VIAL ONE (18:30)
[2023-02-05] MEDS ORDERED: Ondansetron PF 4 MG/2 ML Vial ONE (18:30)
[2023-02-05] MEDS ORDERED: HYDROmorphone 0.5 MG/0.5 ML SYRINGE ONE (19:25)
[2023-02-05] MEDS ORDERED: hydrALAZINE 20 MG/ML VIAL ONE (20:48)
== END 2023-02-05 21:20 | disposition home or self-care (01) ==
LOC: SDC 13:31
PROVIDERS: ATTEND Orthopaedic Surgery Hand Surgery
PROC: 01N50ZZ Release Median Nerve, Open Approach (ICD-10-PCS; principal; 2023-02-05)
PROC: 01N40ZZ Release Ulnar Nerve, Open Approach (ICD-10-PCS; 2023-02-05)
DX: G56.02 Carpal tunnel syndrome, left upper limb (principal); G56.12 Other lesions of median nerve, left upper limb; G58.7 Mononeuritis multiplex; Z88.1 Allergy status to other antibiotic agents; Z88.8 Allergy status to other drugs, medicaments and biological substances; Z91.048 Other nonmedicinal substance allergy status; Z90.710 Acquired absence of both cervix and uterus; Z90.49 Acquired absence of other specified parts of digestive tract
CPT/HCPCS: 64718; 64721; J0360; J1170; J1720; J2405; J2704; J3490; S0020; S0028

== ENCOUNTER 2023-04-05 16:15 | Inpatient (IN) | payer MEDICARE ==
[~2023-04-05 16:15] MED LIST: Iopamidol-370 76% 500 ML MDV (1 ML CHARGE) ONE
[2023-04-05 17:13] LABS: #Monocytes 0.6 thou/uL (0.11-0.59); %Basophils 0.2 % (0.0-1.0); %Eosinophils 0.1 % (0.0-10.0); %Lymphocytes 6.9 % (21.0-51.0); %Monocytes 6.3 % (0.0-10.0); %Neutrophils 84.9 % (42.0-75.0); Hematocrit 37.3 % (36.0-47.0); Hemoglobin 12.3 g/dL (12.0-16.0); Mean Corpuscular Hemoglobin 32.6 pg (27.0-31.0); Mean Corpuscular Volume 98.9 fl (78.0-98.0); Mean Platelet Volume 10.2 fL (7.4-10.4); Platelet Count 281 10x3/uL (130-400); RBC Distribution Width 15.8 % (11.5-14.5); Red Blood Cell (RBC) Count 3.77 mill/uL (4.20-5.40); White Blood Cell (WBC) Count 9.4 10x3/uL (4.8-10.8)
[2023-04-05 17:42] LABS: SARS-CoV-2 NAA Rapid Test DETECTED (NotDetected)
[2023-04-05 18:13] LABS: Bacteria/HPF None Seen HPF (None Seen); Bilirubin Negative (Negative); Blood, Urine Negative (Negative); CAUTI Indications for Culture Fever or rigors; Clarity Clear (Clear); Glucose, Urine (Dipstick) Normal (Negative); Ketone, Urine Negative (Negative); Leukocyte Negative Leu/uL (Negative); Nitrite Negative (Negative); Protein, Urine (Dipstick) Negative (Neg-Trace); RBC/HPF 0-3 HPF (0-3); Specific Gravity, Urine 1.011 (1.002-1.036); Squamous Epithelial None Seen HPF (0-3); Urobilinogen Normal mg/dL (Less than 2); WBC/HPF None Seen HPF (0-3); pH, Urine 5.5 (5.0-9.0)
[2023-04-05 18:14] LABS: ALT (SGPT) 51 U/L (8-55); AST (SGOT) 41 U/L (5-34); Albumin 3.8 g/dL (3.4-4.8); Alkaline Phosphatase 59 U/L (40-110); Anion Gap 15 mmol/L (10-20); BUN (Urea Nitrogen) 29 mg/dL (9.8-20.1); Bilirubin, Total 0.5 mg/dL (0.2-1.2); Calc. Creatinine Clearance 0 mL/min (70-130); Calcium 9.6 mg/dL (7.8-10.44); Carbon Dioxide 29 mmol/L (23-31); Chloride 100 mmol/L (98-107); Estimated GFR 52; Glucose 100 mg/dL (83-110); Potassium 4.1 mmol/L (3.5-5.1); Protein, Total 6.8 g/dL (5.8-8.1); Sodium 140 mmol/L (136-145)
[2023-04-05 18:15] LABS: Urine Culture Reflex No No
[2023-04-05] MEDS ORDERED: cefTRIAXone (ROCEPHIN) 1 GM VIAL ONE (19:40)
[2023-04-05] MEDS ORDERED: Ondansetron PF 4 MG/2 ML Vial IVP PRN (19:51)
[2023-04-05] MEDS ORDERED: Acetaminophen 325 MG TAB PO PRN (19:51)
[2023-04-05] MEDS ORDERED: Albuterol 200 PUFF (6.7GM INHALER) INH PRN (19:53)
[2023-04-05] MEDS ORDERED: VANCOMYCIN 2 GRAM/500 ML BAG 2 GM in Premix Bag 1 BAG IVPB SCH (20:15)
[2023-04-05 21:09] LABS: Lactic Acid 2.2 mmol/L (0.5-2.2)
[2023-04-05 23:17] VITALS: BMI 36.4
[2023-04-06 04:44] LABS: #Monocytes 0.9 thou/uL (0.11-0.59); #Neutrophils 7.1 thou/uL (1.40-6.50); %Basophils 0.2 % (0.0-1.0); %Eosinophils 0.4 % (0.0-10.0); %Lymphocytes 19.9 % (21.0-51.0); %Neutrophils 69.3 % (42.0-75.0); Hematocrit 35.8 % (36.0-47.0); Hemoglobin 11.5 g/dL (12.0-16.0); Mean Corpuscular HGB CONC 32.1 g/dL (32.0-36.0); Mean Corpuscular Hemoglobin 32.7 pg (27.0-31.0); Mean Corpuscular Volume 101.7 fl (78.0-98.0); Mean Platelet Volume 10.1 fL (7.4-10.4); Platelet Count 258 10x3/uL (130-400); RBC Distribution Width 15.6 % (11.5-14.5); Red Blood Cell (RBC) Count 3.52 mill/uL (4.20-5.40); White Blood Cell (WBC) Count 10.3 10x3/uL (4.8-10.8)
[2023-04-06 05:09] LABS: Anion Gap 15 mmol/L (10-20); BUN (Urea Nitrogen) 25 mg/dL (9.8-20.1); Calc. Creatinine Clearance 74 mL/min (70-130); Calcium 9.1 mg/dL (7.8-10.44); Carbon Dioxide 27 mmol/L (23-31); Chloride 103 mmol/L (98-107); Estimated GFR 56; Glucose 76 mg/dL (83-110); Potassium 3.5 mmol/L (3.5-5.1); Sodium 141 mmol/L (136-145)
[2023-04-06] MEDS: Cefepime 1 GM in Sodium Chloride 0.9% 100 ML IVPB SCH ×2 (05:14→14:32)
[2023-04-06] MEDS: Benzonatate 100 MG CAP PO PRN (05:33)
[2023-04-06] MEDS: Mometasone 200 MCG/Formoterol 5 MCG 120 PUFF INHALER INH SCH ×2 (07:52→19:39)
[2023-04-06] MEDS ORDERED: predniSONE 20 MG TAB PO SCH (08:00)
[2023-04-06] MEDS: Zinc Sulfate 220 MG CAP PO SCH (08:38)
[2023-04-06] MEDS: guaiFENesin/DM ER PO SCH ×2 (08:39→20:30)
[2023-04-06] MEDS: Ascorbic Acid 500 mg Chewable Tablet PO SCH (08:39)
[2023-04-06] MEDS: Nystatin 500,000 UNITS/5 ML UDCUP SSW SCH ×4 (08:39→20:32)
[2023-04-06] MEDS ORDERED: Non-Formulary Item 1 EACH (Cholecalciferol (Vitamin D3) [Vitamin D3] 2,000 UNIT Capsule) PO SCH (09:00)
[2023-04-06] MEDS ORDERED: Non-Formulary Item 1 EACH (Bupropion Hcl [Wellbutrin Xl] 300 MG Tab.Er.24h) PO SCH (09:00)
[2023-04-06] MEDS ORDERED: PREDNISONE 10 MG PO SCH (09:00)
[2023-04-06] MEDS ORDERED: PILOCARPINE HCL 7.5 MG PO SCH (09:00)
[2023-04-06] MEDS ORDERED: Furosemide 20 MG/2 ML VIAL SLOW IVP SCH (09:00)
[2023-04-06] MEDS ORDERED: NABUMETONE 750 MG PO SCH (09:00)
[2023-04-06] MEDS: Mirabegron ER 25 MG ER.TAB PO SCH ×2 (10:06→20:31)
[2023-04-06] MEDS: DULoxetine 30 MG CAP PO SCH (10:06)
[2023-04-06] MEDS: Folic Acid 1 MG TAB PO SCH (10:06)
[2023-04-06] MEDS: azaTHIOprine 50 MG TAB PO SCH (10:06)
[2023-04-06] MEDS ORDERED: Guaifenesin DM 100-10/5 ML UDCUP PO PRN (10:43)
[2023-04-06] MEDS: Furosemide 20 MG/2 ML VIAL SLOW IVP SCH (14:33)
[2023-04-06 19:02] LABS: Legionella Urinary Ag Negative (Negative); Strep pneumo Urine Ag NEGATIVE (NEGATIVE)
[2023-04-06] MEDS: Arformoterol 15 MCG/2 ML NEB NEB SCH (19:36)
[2023-04-06] MEDS: traZODone HCl 50 MG TAB PO SCH (20:28)
[2023-04-06] MEDS: Nabumetone 500 MG TAB PO SCH (20:29)
[2023-04-06] MEDS: Doxepin HCl 25 MG CAP PO SCH (20:31)
[2023-04-06] MEDS: Pilocarpine 5 MG TAB PO SCH (20:31)
[2023-04-06] MEDS: Pregabalin 50 MG CAP PO SCH (20:31)
[2023-04-06] MEDS: Vancomycin 1.5 GRAM/300 ML BAG 1.5 GM in Premix Bag 1 BAG IVPB SCH (20:32)
[2023-04-06] MEDS: Montelukast Sodium 10 mg Tablet PO SCH (20:32)
[2023-04-06] MEDS ORDERED: guaiFENesin ER 600 MG TAB PO SCH (21:00)
[2023-04-07 05:33] LABS: #Eosinphils 0.1 thou/uL (0.0-0.7); #Monocytes 0.6 thou/uL (0.11-0.59); #Neutrophils 6.1 thou/uL (1.40-6.50); %Basophils 0.3 % (0.0-1.0); %Monocytes 7.1 % (0.0-10.0); %Neutrophils 69.1 % (42.0-75.0); Hematocrit 34.8 % (36.0-47.0); Hemoglobin 11.3 g/dL (12.0-16.0); Mean Corpuscular HGB CONC 32.5 g/dL (32.0-36.0); Mean Corpuscular Hemoglobin 32.6 pg (27.0-31.0); Mean Corpuscular Volume 100.3 fl (78.0-98.0); Mean Platelet Volume 10.2 fL (7.4-10.4); Platelet Count 224 10x3/uL (130-400); RBC Distribution Width 15.4 % (11.5-14.5); Red Blood Cell (RBC) Count 3.47 mill/uL (4.20-5.40); White Blood Cell (WBC) Count 8.8 10x3/uL (4.8-10.8)
[2023-04-07 05:57] LABS: Anion Gap 15 mmol/L (10-20); BUN (Urea Nitrogen) 19 mg/dL (9.8-20.1); Calc. Creatinine Clearance 77 mL/min (70-130); Calcium 8.3 mg/dL (7.8-10.44); Carbon Dioxide 24 mmol/L (23-31); Chloride 106 mmol/L (98-107); Estimated GFR 60; Glucose 98 mg/dL (83-110); Potassium 3.4 mmol/L (3.5-5.1); Sodium 142 mmol/L (136-145)
[2023-04-07] MEDS: Cefepime 1 GM in Sodium Chloride 0.9% 100 ML IVPB SCH ×2 (05:57→17:22)
[2023-04-07] MEDS: Furosemide 20 MG/2 ML VIAL SLOW IVP SCH ×2 (05:57→13:30)
[2023-04-07] MEDS: Arformoterol 15 MCG/2 ML NEB NEB SCH ×2 (07:49→19:05)
[2023-04-07] MEDS: Mometasone 200 MCG/Formoterol 5 MCG 120 PUFF INHALER INH SCH ×2 (08:00→19:07)
[2023-04-07] MEDS: predniSONE 5 MG TAB PO SCH (09:00)
[2023-04-07] MEDS: Nystatin 500,000 UNITS/5 ML UDCUP SSW SCH ×4 (09:08→21:59)
[2023-04-07] MEDS: Mirabegron ER 25 MG ER.TAB PO SCH ×2 (09:09→22:01)
[2023-04-07] MEDS: Folic Acid 1 MG TAB PO SCH (09:09)
[2023-04-07] MEDS: Cholecalciferol 1,000 UNITS (25 MCG) TAB PO SCH (09:10)
[2023-04-07] MEDS: DULoxetine 30 MG CAP PO SCH (09:10)
[2023-04-07] MEDS: guaiFENesin/DM ER PO SCH ×2 (09:11→22:01)
[2023-04-07] MEDS: Ascorbic Acid 500 mg Chewable Tablet PO SCH (09:11)
[2023-04-07] MEDS: Zinc Sulfate 220 MG CAP PO SCH (09:11)
[2023-04-07] MEDS: azaTHIOprine 50 MG TAB PO SCH (09:11)
[2023-04-07] MEDS: BuPROPion XL 150 MG ER.TAB PO SCH (09:12)
[2023-04-07] MEDS ORDERED: Potassium Chloride 20 MEQ TAB PO SCH (10:00)
[2023-04-07] MEDS: Nabumetone 500 MG TAB PO SCH ×2 (11:32→22:00)
[2023-04-07] MEDS: Pilocarpine 5 MG TAB PO SCH ×2 (11:32→22:02)
[2023-04-07 20:57] LABS: Vancomycin, Trough 9.1 ug/mL
[2023-04-07] MEDS: traZODone HCl 50 MG TAB PO SCH (22:00)
[2023-04-07] MEDS: Montelukast Sodium 10 mg Tablet PO SCH (22:01)
[2023-04-07] MEDS: Doxepin HCl 25 MG CAP PO SCH (22:02)
[2023-04-07] MEDS: Vancomycin 1 GM in Premix Bag 1 BAG IVPB SCH (22:04)
[2023-04-07] MEDS: Pregabalin 50 MG CAP PO SCH (22:14)
[2023-04-07] MEDS: Vancomycin 1.5 GRAM/300 ML BAG 1.5 GM in Premix Bag 1 BAG IVPB SCH (22:20)
[2023-04-08 04:39] LABS: #Eosinphils 0.1 thou/uL (0.0-0.7); #Monocytes 0.9 thou/uL (0.11-0.59); #Neutrophils 6.2 thou/uL (1.40-6.50); %Basophils 0.4 % (0.0-1.0); %Eosinophils 0.8 % (0.0-10.0); %Lymphocytes 18.1 % (21.0-51.0); %Monocytes 10.1 % (0.0-10.0); %Neutrophils 68.8 % (42.0-75.0); Hematocrit 34.2 % (36.0-47.0); Hemoglobin 11.1 g/dL (12.0-16.0); Mean Corpuscular HGB CONC 32.5 g/dL (32.0-36.0); Mean Corpuscular Hemoglobin 32.6 pg (27.0-31.0); Mean Corpuscular Volume 100.6 fl (78.0-98.0); Mean Platelet Volume 10.1 fL (7.4-10.4); Platelet Count 212 10x3/uL (130-400); RBC Distribution Width 15.7 % (11.5-14.5)
[2023-04-08 05:06] LABS: Anion Gap 14 mmol/L (10-20); BUN (Urea Nitrogen) 20 mg/dL (9.8-20.1); Calc. Creatinine Clearance 76 mL/min (70-130); Calcium 8.2 mg/dL (7.8-10.44); Carbon Dioxide 29 mmol/L (23-31); Chloride 104 mmol/L (98-107); Estimated GFR 58; Glucose 87 mg/dL (83-110); Potassium 3.6 mmol/L (3.5-5.1); Sodium 143 mmol/L (136-145)
[2023-04-08] MEDS: Cefepime 1 GM in Sodium Chloride 0.9% 100 ML IVPB SCH ×2 (05:07→18:32)
[2023-04-08] MEDS: Furosemide 20 MG/2 ML VIAL SLOW IVP SCH ×2 (05:07→14:09)
[2023-04-08] MEDS: Arformoterol 15 MCG/2 ML NEB NEB SCH ×2 (07:06→19:34)
[2023-04-08] MEDS: Mometasone 200 MCG/Formoterol 5 MCG 120 PUFF INHALER INH SCH ×2 (07:08→19:34)
[2023-04-08] MEDS: Mirabegron ER 25 MG ER.TAB PO SCH ×2 (09:43→20:23)
[2023-04-08] MEDS: Ascorbic Acid 500 mg Chewable Tablet PO SCH (09:43)
[2023-04-08] MEDS: BuPROPion XL 150 MG ER.TAB PO SCH (09:44)
[2023-04-08] MEDS: guaiFENesin/DM ER PO SCH ×2 (09:44→20:22)
[2023-04-08] MEDS: Nystatin 500,000 UNITS/5 ML UDCUP SSW SCH ×4 (09:44→20:22)
[2023-04-08] MEDS: Zinc Sulfate 220 MG CAP PO SCH (09:44)
[2023-04-08] MEDS: Cholecalciferol 1,000 UNITS (25 MCG) TAB PO SCH (09:45)
[2023-04-08] MEDS: azaTHIOprine 50 MG TAB PO SCH (09:45)
[2023-04-08] MEDS: Folic Acid 1 MG TAB PO SCH (09:45)
[2023-04-08] MEDS: DULoxetine 30 MG CAP PO SCH (09:45)
[2023-04-08] MEDS: Vancomycin 1 GM in Premix Bag 1 BAG IVPB SCH ×2 (09:46→22:13)
[2023-04-08] MEDS: Nabumetone 500 MG TAB PO SCH ×2 (10:43→20:23)
[2023-04-08] MEDS: Pilocarpine 5 MG TAB PO SCH ×2 (10:44→20:24)
[2023-04-08] MEDS: predniSONE 5 MG TAB PO SCH (10:44)
[2023-04-08] MEDS: Montelukast Sodium 10 mg Tablet PO SCH (20:23)
[2023-04-08] MEDS: Pregabalin 50 MG CAP PO SCH (20:23)
[2023-04-08] MEDS: traZODone HCl 50 MG TAB PO SCH (20:23)
[2023-04-08] MEDS: Doxepin HCl 25 MG CAP PO SCH (20:23)
[2023-04-08] MEDS: Benzonatate 100 MG CAP PO PRN (22:13)
[2023-04-09 05:08] LABS: #Basophils 0.1 thou/uL (0.0-0.2); #Eosinphils 0.1 thou/uL (0.0-0.7); #Neutrophils 4.7 thou/uL (1.40-6.50); %Basophils 0.7 % (0.0-1.0); %Eosinophils 1.9 % (0.0-10.0); %Lymphocytes 20.2 % (21.0-51.0); %Monocytes 13.3 % (0.0-10.0); %Neutrophils 62.6 % (42.0-75.0); Hematocrit 33.8 % (36.0-47.0); Mean Corpuscular HGB CONC 32.5 g/dL (32.0-36.0); Mean Corpuscular Hemoglobin 32.8 pg (27.0-31.0); Mean Corpuscular Volume 100.9 fl (78.0-98.0); Mean Platelet Volume 10.1 fL (7.4-10.4); Platelet Count 191 10x3/uL (130-400); RBC Distribution Width 15.9 % (11.5-14.5); Red Blood Cell (RBC) Count 3.35 mill/uL (4.20-5.40); White Blood Cell (WBC) Count 7.4 10x3/uL (4.8-10.8)
[2023-04-09 05:33] LABS: Anion Gap 14 mmol/L (10-20); BUN (Urea Nitrogen) 16 mg/dL (9.8-20.1); Calc. Creatinine Clearance 85 mL/min (70-130); Calcium 8.1 mg/dL (7.8-10.44); Carbon Dioxide 26 mmol/L (23-31); Chloride 105 mmol/L (98-107); Estimated GFR 68; Glucose 82 mg/dL (83-110); Potassium 3.5 mmol/L (3.5-5.1); Sodium 141 mmol/L (136-145)
[2023-04-09] MEDS: Cefepime 1 GM in Sodium Chloride 0.9% 100 ML IVPB SCH (06:10)
[2023-04-09] MEDS: Benzonatate 100 MG CAP PO PRN (06:10)
[2023-04-09] MEDS: Furosemide 20 MG/2 ML VIAL SLOW IVP SCH (06:11)
[2023-04-09] MEDS: Mometasone 200 MCG/Formoterol 5 MCG 120 PUFF INHALER INH SCH (07:20)
[2023-04-09] MEDS: Arformoterol 15 MCG/2 ML NEB NEB SCH (07:21)
[2023-04-09] MEDS: predniSONE 5 MG TAB PO SCH (08:42)
[2023-04-09] MEDS: azaTHIOprine 50 MG TAB PO SCH (08:43)
[2023-04-09] MEDS: Ascorbic Acid 500 mg Chewable Tablet PO SCH (08:43)
[2023-04-09] MEDS: BuPROPion XL 150 MG ER.TAB PO SCH (08:44)
[2023-04-09] MEDS: Folic Acid 1 MG TAB PO SCH (08:44)
[2023-04-09] MEDS: DULoxetine 30 MG CAP PO SCH (08:44)
[2023-04-09] MEDS: Cholecalciferol 1,000 UNITS (25 MCG) TAB PO SCH (08:44)
[2023-04-09] MEDS: Mirabegron ER 25 MG ER.TAB PO SCH (08:45)
[2023-04-09] MEDS: guaiFENesin/DM ER PO SCH (08:45)
[2023-04-09] MEDS: Nabumetone 500 MG TAB PO SCH (08:45)
[2023-04-09] MEDS: Pilocarpine 5 MG TAB PO SCH (08:46)
[2023-04-09] MEDS: Nystatin 500,000 UNITS/5 ML UDCUP SSW SCH (08:46)
[2023-04-09] MEDS: Zinc Sulfate 220 MG CAP PO SCH (08:47)
[2023-04-09 11:52] VITALS: BP 121/64; TEMP 98
[2023-04-09] MEDS: Vancomycin 1 GM in Premix Bag 1 BAG IVPB SCH (11:57)
== END 2023-04-09 13:39 | disposition home or self-care (01) | DRG 193 ==
LOC: ERS 16:15 → 2NO 19:42
PROVIDERS: ADMIT Internal Medicine; ATTEND Internal Medicine
DX: J18.9 Pneumonia, unspecified organism (principal); U07.1 COVID-19; J47.0 Bronchiectasis with acute lower respiratory infection; N17.9 Acute kidney failure, unspecified; B37.0 Candidal stomatitis; D84.9 Immunodeficiency, unspecified; E87.20 Acidosis, unspecified; J45.31 Mild persistent asthma with (acute) exacerbation; I10 Essential (primary) hypertension; E87.6 Hypokalemia; E87.70 Fluid overload, unspecified; T17.990A Other foreign object in respiratory tract, part unspecified in causing asphyxiation, initial encounter; Z96.652 Presence of left artificial knee joint; M06.9 Rheumatoid arthritis, unspecified; M35.00 Sjogren syndrome, unspecified; Z79.899 Other long term (current) drug therapy; Z88.8 Allergy status to other drugs, medicaments and biological substances; Z79.51 Long term (current) use of inhaled steroids; Z90.49 Acquired absence of other specified parts of digestive tract; Z90.710 Acquired absence of both cervix and uterus; Z98.890 Other specified postprocedural states; Z82.49 Family history of ischemic heart disease and other diseases of the circulatory system
CPT/HCPCS: 36415; 36416; 71045; 71275; 80048; 80053; 80202; 81001; 83605; 83880; 85025; 87040; 87070; 87081; 87086; 87205; 87449; 87899; 93005; 93970; 94640; 96365; 96367; J0692; J0696; J1650; J1940; J3370; J3370-JW; J3490; J7500; J7512; Q9967

== ENCOUNTER 2023-05-03 08:35 | Outpatient (CLI) | payer MEDICARE | END 2023-05-03 08:36 | disposition home or self-care (01) | LOC: RAD 08:35 | PROVIDERS: ATTEND Internal Medicine Critical Care Medicine | DX: R06.00 Dyspnea, unspecified (principal) | CPT/HCPCS: 71046 ==

== ENCOUNTER 2023-06-07 14:20 | Outpatient (CLI) | payer MEDICARE | END 2023-06-07 14:21 | disposition home or self-care (01) | LOC: RAD 14:20 | PROVIDERS: ATTEND Internal Medicine Critical Care Medicine | DX: R06.00 Dyspnea, unspecified (principal) | CPT/HCPCS: 71046 ==

== ENCOUNTER 2024-04-17 10:50 | Outpatient (CLI) | payer MEDICARE | END 2024-04-17 10:51 | disposition home or self-care (01) | LOC: BICMAMMO 10:50 | PROVIDERS: ATTEND Internal Medicine Rheumatology | DX: Z13.820 Encounter for screening for osteoporosis (principal); M85.851 Other specified disorders of bone density and structure, right thigh; M85.852 Other specified disorders of bone density and structure, left thigh | CPT/HCPCS: 77080 ==

== ENCOUNTER 2024-05-06 08:25 | Outpatient (CLI) | payer MEDICARE | END 2024-05-06 08:26 | disposition home or self-care (01) | LOC: RAD 08:25 | PROVIDERS: ATTEND Internal Medicine Critical Care Medicine | DX: R06.00 Dyspnea, unspecified (principal) | CPT/HCPCS: 71046 ==

== ENCOUNTER 2024-06-06 11:03 | Outpatient (CLI) | payer MEDICARE | END 2024-06-06 11:04 | disposition home or self-care (01) | LOC: BICRAD 11:03 | PROVIDERS: ATTEND Internal Medicine Rheumatology | DX: M05.79 Rheumatoid arthritis with rheumatoid factor of multiple sites without organ or systems involvement (principal); M12.842 Other specific arthropathies, not elsewhere classified, left hand; M12.832 Other specific arthropathies, not elsewhere classified, left wrist; M12.831 Other specific arthropathies, not elsewhere classified, right wrist; S52.391D Other fracture of shaft of radius, right arm, subsequent encounter for closed fracture with routine healing; M21.172 Varus deformity, not elsewhere classified, left ankle; M12.871 Other specific arthropathies, not elsewhere classified, right ankle and foot; M12.872 Other specific arthropathies, not elsewhere classified, left ankle and foot ==

== ENCOUNTER 2024-08-18 09:51 | Outpatient (CLI) | payer MEDICARE | END 2024-08-18 09:52 | disposition home or self-care (01) | LOC: RAD 09:51 | PROVIDERS: ATTEND Internal Medicine Critical Care Medicine | DX: R06.00 Dyspnea, unspecified (principal) | CPT/HCPCS: 71046 ==

== ENCOUNTER 2024-09-02 10:38 | Outpatient (CLI) | payer MEDICARE | END 2024-09-02 10:39 | disposition home or self-care (01) | LOC: SUATTDRO 10:38 → RAD 10:38 | PROVIDERS: ADMIT Internal Medicine; ATTEND Internal Medicine | DX: R06.00 Dyspnea, unspecified (principal); J18.9 Pneumonia, unspecified organism | CPT/HCPCS: 71046 ==

== ENCOUNTER 2025-03-02 09:01 | Outpatient (CLI) | payer MEDICARE | END 2025-03-02 09:02 | disposition home or self-care (01) | LOC: SCSMRI 09:01 | PROVIDERS: ATTEND Nurse Practitioner Family | DX: M50.122 Cervical disc disorder at C5-C6 level with radiculopathy (principal); M50.123 Cervical disc disorder at C6-C7 level with radiculopathy; M50.11 Cervical disc disorder with radiculopathy, high cervical region; M51.34 Other intervertebral disc degeneration, thoracic region; M47.22 Other spondylosis with radiculopathy, cervical region; M47.813 Spondylosis without myelopathy or radiculopathy, cervicothoracic region; M48.02 Spinal stenosis, cervical region; M48.03 Spinal stenosis, cervicothoracic region; G95.20 Unspecified cord compression; G95.89 Other specified diseases of spinal cord; Z98.890 Other specified postprocedural states | CPT/HCPCS: 72141 ==

== ENCOUNTER 2025-04-28 14:07 | Outpatient (CLI) | payer MEDICARE | END 2025-04-28 14:08 | disposition home or self-care (01) | LOC: BICMAMMO 14:07 | PROVIDERS: ATTEND Specialist | DX: M81.0 Age-related osteoporosis without current pathological fracture (principal); M85.851 Other specified disorders of bone density and structure, right thigh; M85.852 Other specified disorders of bone density and structure, left thigh | CPT/HCPCS: 77080 ==